=== PATIENT | female | born 1995 | race Caucasian/White ===

== ENCOUNTER → 2017-11-04 | Outpatient (CLI) | payer BC ==
--- NOTE | 2017-11-04 11:58 | XR ---
EXAMINATION TYPE: XR chest 2V DATE OF EXAM: 11/04/2017 COMPARISON: NONE HISTORY: Chest pain TECHNIQUE: Frontal and lateral views of the chest are obtained. FINDINGS: There is no focal air space opacity, pleural effusion, or pneumothorax seen. The cardiac silhouette size is within normal limits. The osseous structures are intact. Bilateral nipple pierci ng is incidentally noted. IMPRESSION: No acute cardiopulmonary process.
== END | disposition home or self-care (01) ==
LOC: RADXRYALE 11:12
PROVIDERS: ATTEND Family Medicine
DX: R07.89 Other chest pain (principal); R07.1 Chest pain on breathing
CPT/HCPCS: 71046

== ENCOUNTER 2017-11-21 05:33 | Day surgery (SDC) | payer BC ==
[2017-11-18 12:07] VITALS: BMI 26.1
[~2017-11-21 05:33] MED LIST: DEXAMETHASONE SOD PHOSPHATE 4 MG/ML 1 ML VIAL IV ONE; FAMOTIDINE 20 MG/2 ML VIAL IV ONE; ONDANSETRON 4 MG/2 ML VIAL IVP ONE
[2017-11-21] MEDS ORDERED: ONDANSETRON ODT 4 MG TAB PO ONE (05:48)
[2017-11-21] MEDS ORDERED: LACTATED RINGERS 1,000 ML IV SCH (05:48)
[2017-11-21] MEDS ORDERED: MIDAZOLAM 2 MG/2 ML VIAL IV PRN (05:48)
[2017-11-21] MEDS ORDERED: MORPHINE SULFATE 4 MG/ML SYRINGE IV PRN (05:48)
[2017-11-21] MEDS ORDERED: DEXAMETHASONE SOD PHOSPHATE 10 MG/ML 1 ML VIAL IV ONE (05:48)
[2017-11-21] MEDS ORDERED: ceFAZolin IN SWFI 2 GM/20 ML SYRINGE IVP ONE (06:00)
[2017-11-21 06:21] VITALS: RESP 16
[2017-11-21] MEDS: OXYMETAZOLINE 0.05% NASL SPRAY 1 SPRAY BOTTLE NASAL ONE ×6 (06:37→07:06)
[2017-11-21] MEDS ORDERED: LIDOCAINE 1% 20 ML VIAL (10MG/ML) FOR IV START INTRADERMA ONE (06:38)
[2017-11-21] MEDS: MELOXICAM 7.5 MG TAB PO ONE ×2 (06:56→07:06)
[2017-11-21] MEDS ORDERED: MIDAZOLAM 2 MG/2 ML VIAL ONE (07:11)
[2017-11-21] MEDS ORDERED: PROPOFOL 10 MG/ML 20 ML VIAL IV ONE (07:11)
[2017-11-21] MEDS ORDERED: LIDOCAINE 1% INJ 10MG/ML (20 ML MDV) ONE (07:11)
[2017-11-21] MEDS ORDERED: SUCCINYLCHOLINE CHLORIDE 100 MG/5 ML SYR IV ONE (07:11)
[2017-11-21] MEDS ORDERED: DEXAMETHASONE SOD PHOS (MDV) 100 MG/10 ML VIAL ONE (07:11)
[2017-11-21] MEDS ORDERED: fentaNYL (PF) 50 MCG/ML 2 ML AMP ONE (07:11)
[2017-11-21] MEDS ORDERED: LIDOCAINE 1%-EPI 1:100,000 30 ML VIAL SUBMUCOSAL ONE ×2 (07:36→07:55)
[2017-11-21] MEDS ORDERED: BUPIVACAINE (PF) 0.25% 30 ML VIAL SQ ONE ×2 (07:36→07:55)
[2017-11-21] MEDS ORDERED: ceFAZolin 1,000 MG, DEXAMETHASONE SOD PHOS (MDV) 20 MG in SODIUM CHLORIDE 0.9% 1,000 ML IRRIGATION ONE (07:43)
--- NOTE | 2017-11-21 08:18 | P.OP ---
Date of Procedure: 11/21/17 Preoperative Diagnosis: Chronic cryptic adenotonsillitis Chronic sinusitis, maxillary Postoperative Diagnosis: same Procedure(s) Performed: Adenotonsillectomy Bilateral maxillary antrostomy with lavage Anesthesia: NORA Surgeon: Ron Cutler Estimated Blood Loss (ml): 5 Pathology: other (tonsils) Condition: stable Disposition: PACU Indications for Procedure: This patient has had constant sore throats for the last 2 years since April of last year she's had constant issues with tonsil stones halitosis etc. She has nasal obstruction constant sinus drainage and has evidence of infectious issues with her maxillary sinuses and has been on multiple antibiotics with no improvement she suffers from discolored yellow green drainage constant sore throats and exudate coming from the tonsils. She was found to have large adenoids that were obstructive. She had clear evidence of chronic nasopharyngitis chronic cryptic tonsillitis and chronic maxillary sinusitis which has been problematic for many years and has failed medical therapy. Again this is been a constant problems since April last year. Adenotonsillectomy and a sinus lavage and antrostomy was recommended and the patient was in agreement. All risks, benefits, and alternative therapies were discussed in great detail. Consent was obtained and all questions were answered. Operative Findings: Patient had severe cryptitis of the tonsils with food debris and exudate noted in the crypts. Adenoids were large obstructive. The sinuses flushed yellow purulence from the maxillary sinuses bilaterally. Description of Procedure: Prior to surgery all risks, benefits, and alternative therapies were discussed in detail. Risks of bleeding, infection, need for secondary surgery, airway problems, anesthetic complications, etc. etc. were discussed in detail. Consent was obtained and all questions were answered. OPERATIVE PROCEDURE: This patient was taken to the operative room and placed in the supine position. A functioning IV line was in placed and the patient was monitored throughout the entire case by the department of anesthesia. The patient underwent general anesthetic with intubation and tube was secured. The nose was topically decongested and anesthetized with Pontocaine and Afrin in a 50/50 mixture utilizing a 3 inch cottonoid. After 5 minutes were allowed to wait for full vasoconstrictive effect to take place, lidocaine 1% with epinephrine 1:100,000 was injected in the floor of the nose and below the inferior turbinate bilaterally for complete anesthesia. The inferior portion underneath the inferior turbinates (b/l) were punctured with an antral punch and a catheter was then inserted into the maxillary sinus. The sinus was irrigated with an antibiotic solution of approximately 500 mL, bilaterally. After the sinuses were lavaged, the spear knife was used to open up a nasoantral window and was widened with a small Alessandra. The mucosa was spared and reflected appropriately to make the nasoantral window. No specimen was removed. Generous nasoantral window was performed. The patient tolerated this well and minimal bleeding was encountered. A McIvor mouth gag was placed into the patients mouth with care to avoid any trauma to the lips, teeth, gums or tongue. Mouth was opened and tongue was depressed. The tonsils were grasped with an Allis forceps and brought medially bilaterally. A subcapsular dissection was performed utilizing an Evac-70 handpiece with an Arthrotec setting of 7. The tonsils were removed without incident bilaterally and the tonsillar fossae were inspected and bleeding was nonexistent and stopped spontaneously with Coblation. A Marcaine and lidocaine mixture was injected into the peritonsillar area for anesthesia postoperatively. After the tonsillar fossae were reinspected and no bleeding was seen attention was then paid to the nasopharynx where a red rubber catheter was placed into the nose and out the mouth and used to retract the soft palate. With use of indirect mirror examination and the Coblation hand wand, the adenoid tissue was removed in that fashion again utilizing an Evac-70 handpiece with Arthrotec setting of 7. The adenoid tissues were removed and fulgurated. The patient tolerated this procedure well. The nasopharynx shows no signs of any bleeding. McIvor mouth gag and the red rubber catheter were removed. The stomach was suctioned and the patient was taken to postanesthesia recovery in excellent condition having tolerated this procedure well. The patient will follow up in the office in one week as scheduled.
[2017-11-21 08:39] VITALS: TEMP 97.3
[2017-11-21] MEDS ORDERED: LACTATED RINGERS 1,000 ML IV ONE (08:50)
[2017-11-21] MEDS ORDERED: HYDROcodone/APAP 5-325MG 1 EACH TAB PO ONE (09:02)
[2017-11-21 09:47] VITALS: BP 130/80; PULSE 74
== END 2017-11-21 10:03 | disposition home or self-care (01) ==
LOC: OR 05:33
PROVIDERS: ATTEND Otolaryngology
DX: J35.01 Chronic tonsillitis (principal); J32.0 Chronic maxillary sinusitis; J45.909 Unspecified asthma, uncomplicated; F32.9 Major depressive disorder, single episode, unspecified; Z79.2 Long term (current) use of antibiotics; Z79.51 Long term (current) use of inhaled steroids; Z79.52 Long term (current) use of systemic steroids; Z79.899 Other long term (current) drug therapy; Z79.3 Long term (current) use of hormonal contraceptives
CPT/HCPCS: 81025; 88304; 42821; 31020; J2250; J1100 ×2; J0690 ×2; J2001; J3010; J0330; J2704

== ENCOUNTER → 2018-09-26 | Outpatient (CLI) | payer BC ==
--- NOTE | 2018-09-26 14:32 | MR ---
EXAMINATION TYPE: MR brain wo/w con DATE OF EXAM: 09/26/2018 COMPARISON: NONE HISTORY: Headache, fatigue, syncope, and concussion TECHNIQUE: Multiplanar, multisequence images of the brain and brainstem is performed without and with IV contras t, utilizing 7.5 mL intravenous Gadavist . FINDINGS: Diffusion weighted images demonstrate no evidence of a recent infarct or other diffusion ab normality. There is no extra-axial fluid collection or significant white matter signal abnormality. The ventricular system and cisternal spaces are normal in size and appearance. The brain volume is age appropriate. Midline structures demonstrate normal morphology. The craniocervical junction appears within normal limits. Post contrast images demonstrate no abnormal enhancement. The dural venous sinuses appear pa tent. Mild mucosal thickening is seen within the left maxillary sinus. The remaining visualized sinus es are clear and the globes are intact. IMPRESSION: 1. There is no abnormal intracranial white matter signal/gliosis or evidence of microhemorrhage in th is patient status post concussion. No suspicious extra-axial fluid collection or midline shift. No ab normal enhancement. 2. Mild left maxillary mucosal thickening. 3. No acute infarct.
== END | disposition home or self-care (01) ==
LOC: RADMRIMAIN 13:32
PROVIDERS: ATTEND Physician Assistant Medical
DX: R51 Headache (principal); R55 Syncope and collapse; R53.83 Other fatigue
CPT/HCPCS: 70553; A9585

== ENCOUNTER → 2020-02-01 | Outpatient (CLI) | payer OTHER | END | disposition home or self-care (01) | LOC: LABWHC1 08:27 | PROVIDERS: ATTEND Family Medicine | DX: Z11.59 Encounter for screening for other viral diseases (principal) | CPT/HCPCS: U0003; C9803 ==

== ENCOUNTER 2020-09-05 21:47 | Observation (INO) | payer BC, OTHER ==
--- NOTE | 2020-09-05 22:54 | ED ---
Abdominal Pain HPI - General Chief Complaint: Abdominal Pain Stated Complaint: ABD pain Time Seen by Provider: 09/05/20 22:20 Source: patient Mode of arrival: ambulatory Limitations: no limitations - History of Present Illness Initial Comments: This patient is 25-year-old woman who presents to be evaluated for low midline abdominal pain. She indicates just below the umbilicus and also suprapubic area. She states it is like a pressure, moderate intensity. She first noticed it while she was at work at about 10 AM and it has gotten a little worse th roughout the day. The patient denies any trauma or heavy lifting. She denies any associated symptoms. Patient denies STI risk factors, no sexual contacts for 6 months. No vaginal discharge. MD Complaint: abdominal pain Onset/Timin -: hour(s) Location: periumbilical, suprapubic Radiation: none Severity: moderate Quality: other (Pressure) Improves With: rest Worsens With: other (Palpation) Associated Symptoms: denies other symptoms - Related Data LMP (females 10-50): this week Patient : No Home Medications Medication Instructions Recorded Confirmed Citalopram Hydrobromide [CeleXA] 20 mg PO QAM 11/18/17 11/21/17 Equate Allergy 10 mg PO DAILY 11/18/17 11/21/17 Medroxyprogesterone Acetate 150 mg IM DIRECTED 11/18/17 11/21/17 [Depo-Provera] Previous Rx's Medication Instructions Recorded Amoxicillin 500 mg PO Q8HR #300 ml 11/21/17 Dexamethasone 6 mg PO DIRECTED #2 tablet 11/21/17 Famotidine [Pepcid] 40 mg PO BID 30 Days tab 11/21/17 Famotidine [Pepcid] 40 mg PO BID 30 Days #30 tab 11/21/17 Hydrocodone/Acetaminophen [[place] 1 - 2 each PO Q4-6H PRN #36 tab 11/21/17 5-325] Lidocaine Viscous [Xylocaine 5 ml PO RT-Q1H PRN #300 ml 11/21/17 Viscous 2%] Meloxicam [Mobic] 15 mg PO DAILY #10 tab 11/21/17 Allergies Allergy/AdvReac Type Severity Reaction Status Date / Time No Known Allergies Allergy Verified 09/05/20 22:05 Review of Systems ROS Statement: Those systems with pertinent positive or pertinent negative responses have been documented in the HPI. ROS Other: All systems not noted in ROS Statement are negative. Constitutional: Denies: fever, chills Respiratory: Denies: cough, dyspnea Cardiovascular: Denies: chest pain, palpitations, edema Gastrointestinal: Reports: as per HPI, abdominal pain. Denies: nausea, vomiting, diarrhea, constipation, melena, hematochezia Genitourinary: Denies: dysuria, frequency, hematuria, discharge, abnormal menses Musculoskeletal: Denies: back pain Skin: Denies: rash Neurological: Denies: headache, weakness, numbness Past Medical History Past Medical History: No Reported History History of Any Multi-Drug Resistant Organisms: None Reported Past Surgical History: Adenoidectomy, Tonsillectomy Past Psychological History: Anxiety, Depression Smoking Status: Vaper Past Alcohol Use History: Occasional Past Drug Use History: None Reported General Exam Limitations: no limitations General appearance: alert, in no apparent distress Head exam: Present: atraumatic, normocephalic Eye exam: Present: normal appearance. Absent: scleral icterus, conjunctival injection Neck exam: Present: normal inspection Respiratory exam: Present: normal lung sounds bilaterally. Absent: respiratory distress, wheezes, rales, rhonchi, stridor Cardiovascular Exam: Present: regular rate, normal rhythm, normal heart sounds. Absent: systolic murmur, diastolic murmur, rubs, gallop GI/Abdominal exam: Present: soft, tenderness, normal bowel sounds. Absent: distended, guarding, rebound, rigid, mass, pulsatile mass, hernia Extremities exam: Present: normal inspection, normal capillary refill. Absent: pedal edema, calf tenderness Back exam: Present: normal inspection. Absent: CVA tenderness (R), CVA tenderness (L) Neurological exam: Present: alert Skin exam: Present: warm, dry, intact, normal color. Absent: rash Course Vital Signs 09/05/20 09/06/20 22:00 00:05 Temperature 98.4 F Pulse Rate 101 H 73 Respiratory 18 16 Rate Blood Pressure 147/93 117/61 O2 Sat by Pulse 99 98 Oximetry Medical Decision Making - Lab Data Result diagrams: 09/05/20 22:58 09/05/20 22:58 Lab Results 09/05/20 09/05/20 09/05/20 Range/Units 22:58 22:58 22:58 WBC 19.4 H (3.8-10.6) k/uL RBC 4.39 (3.80-5.40) m/uL Hgb 13.3 (11.4-16.0) gm/dL Hct 39.6 (34.0-46.0) % MCV 90.2 (80.0-100.0) fL MCH 30.4 (25.0-35.0) pg MCHC 33.7 (31.0-37.0) g/dL RDW 12.4 (11.5-15.5) % Plt Count 352 (150-450) k/uL MPV 7.1 Neutrophils % 76 % Lymphocytes % 16 % Monocytes % 5 % Eosinophils % 2 % Basophils % 0 % Neutrophils # 14.8 H (1.3-7.7) k/uL Lymphocytes # 3.2 (1.0-4.8) k/uL Monocytes # 0.9 (0-1.0) k/uL Eosinophils # 0.3 (0-0.7) k/uL Basophils # 0.1 (0-0.2) k/uL Sodium (137-145) mmol/L Potassium (3.5-5.1) mmol/L Chloride (98-107) mmol/L Carbon Dioxide (22-30) mmol/L Anion Gap mmol/L BUN (7-17) mg/dL Creatinine (0.52-1.04) mg/dL Est GFR (CKD-EPI)AfAm (>60 ml/min/1.73 sqM) Est GFR (CKD-EPI)NonAf (>60 ml/min/1.73 sqM) Glucose (74-99) mg/dL Calcium (8.4-10.2) mg/dL Total Bilirubin (0.2-1.3) mg/dL AST (14-36) U/L ALT (4-34) U/L Alkaline Phosphatase (38-126) U/L C-Reactive Protein (<10.0) mg/L Total Protein (6.3-8.2) g/dL Albumin (3.5-5.0) g/dL Amylase (30-110) U/L Lipase (23-300) U/L Urine Color Light Yellow Urine Appearance Clear (Clear) Urine pH 6.5 (5.0-8.0) Ur Specific [place] 1.009 (1.001-1.035) Urine Protein Negative (Negative) Urine Glucose (UA) Negative (Negative) Urine Ketones Negative (Negative) Urine Blood Negative (Negative) Urine Nitrite Negative (Negative) Urine Bilirubin Negative (Negative) Urine Urobilinogen <2.0 (<2.0) mg/dL Ur Leukocyte Esterase Negative (Negative) Urine HCG, Qual Not Detected (Not Detectd) 09/05/20 Range/Units 22:58 WBC (3.8-10.6) k/uL RBC (3.80-5.40) m/uL Hgb (11.4-16.0) gm/dL Hct (34.0-46.0) % MCV (80.0-100.0) fL MCH (25.0-35.0) pg MCHC (31.0-37.0) g/dL RDW (11.5-15.5) % Plt Count (150-450) k/uL MPV Neutrophils % % Lymphocytes % % Monocytes % % Eosinophils % % Basophils % % Neutrophils # (1.3-7.7) k/uL Lymphocytes # (1.0-4.8) k/uL Monocytes # (0-1.0) k/uL Eosinophils # (0-0.7) k/uL Basophils # (0-0.2) k/uL Sodium 138 (137-145) mmol/L Potassium 4.0 (3.5-5.1) mmol/L Chloride 102 (98-107) mmol/L Carbon Dioxide 27 (22-30) mmol/L Anion Gap 9 mmol/L BUN 14 (7-17) mg/dL Creatinine 0.80 (0.52-1.04) mg/dL Est GFR (CKD-EPI)AfAm >90 (>60 ml/min/1.73 sqM) Est GFR (CKD-EPI)NonAf >90 (>60 ml/min/1.73 sqM) Glucose 109 H (74-99) mg/dL Calcium 9.1 (8.4-10.2) mg/dL Total Bilirubin 0.3 (0.2-1.3) mg/dL AST 20 (14-36) U/L ALT 16 (4-34) U/L Alkaline Phosphatase 42 (38-126) U/L C-Reactive Protein 32.2 H (<10.0) mg/L Total Protein 7.5 (6.3-8.2) g/dL Albumin 4.3 (3.5-5.0) g/dL Amylase 53 (30-110) U/L Lipase 195 (23-300) U/L Urine Color Urine Appearance (Clear) Urine pH (5.0-8.0) Ur Specific [place] (1.001-1.035) Urine Protein (Negative) Urine Glucose (UA) (Negative) Urine Ketones (Negative) Urine Blood (Negative) Urine Nitrite (Negative) Urine Bilirubin (Negative) Urine Urobilinogen (<2.0) mg/dL Ur Leukocyte Esterase (Negative) Urine HCG, Qual (Not Detectd) Disposition Clinical Impression: Abdominal pain, Acute appendicitis Disposition: ADMITTED IP TO THIS [facility] Condition: Good Referrals: Jose Angel Rice DO [Primary Care Provider] - 1-2 days
[2020-09-05 23:13] LABS: Basophils # (A) 0.1 k/uL (0-0.2); Basophils % (A) 0 %; Eosinophils # (A) 0.3 k/uL (0-0.7); Eosinophils % (A) 2 %; HCT 39.6 % (34.0-46.0); HGB 13.3 gm/dL (11.4-16.0); Lymphocytes # (A) 3.2 k/uL (1.0-4.8); Lymphocytes % (A) 16 %; MCH 30.4 pg (25.0-35.0); MCHC 33.7 g/dL (31.0-37.0); MCV 90.2 fL (80.0-100.0); Mean Platelet Volume 7.1; Monocytes # (A) 0.9 k/uL (0-1.0); Monocytes % (A) 5 %; Neutrophils # (A) 14.8 k/uL (1.3-7.7); Neutrophils % (A) 76 %; Platelet Count 352 k/uL (150-450); RBC 4.39 m/uL (3.80-5.40); RDW 12.4 % (11.5-15.5); WBC 19.4 k/uL (3.8-10.6)
[2020-09-05 23:24] LABS: Appearance,Urine Clear (Clear); Bilirubin,Urine Negative (Negative); Blood,Urine Negative (Negative); Color,Urine Light Yellow; Glucose,Urine (UA) Negative (Negative); Ketones,Urine Negative (Negative); Leukocyte Esterase,Urine Negative (Negative); Nitrite,Urine Negative (Negative); PH, Urine 6.5 (5.0-8.0); Protein,Urine Negative (Negative); Specific Gravity,Urine 1.009 (1.001-1.035); Urobilinogen,Urine <2.0 mg/dL (<2.0)
[2020-09-05 23:29] LABS: ALT 16 U/L (4-34); AST 20 U/L (14-36); African American GFR (CKD) >90 (>60 ml/min/1.73 sqM); Albumin 4.3 g/dL (3.5-5.0); Alkaline Phosphatase 42 U/L (38-126); Amylase 53 U/L (30-110); Anion Gap 9 mmol/L; Blood Urea Nitrogen 14 mg/dL (7-17); C Reactive Protein 32.2 mg/L (<10.0); Calcium 9.1 mg/dL (8.4-10.2); Carbon Dioxide 27 mmol/L (22-30); Chloride 102 mmol/L (98-107); Glucose 109 mg/dL (74-99); Lipase 195 U/L (23-300); Non-African American GFR(CKD) >90 (>60 ml/min/1.73 sqM); Sodium 138 mmol/L (137-145); Total Bilirubin 0.3 mg/dL (0.2-1.3); Total Protein 7.5 g/dL (6.3-8.2)
--- NOTE | 2020-09-06 00:50 | CT ---
EXAMINATION TYPE: CT abdomen pelvis w con DATE OF EXAM: 09/06/2020 COMPARISON: None HISTORY: Epigastric pain CT DLP: 1225 mGycm Automated exposure control for dose reduction was used. CONTRAST: Performed with IV Contrast, patient injected with 100 mL of Isovue 300. Lung bases are clear. There is no pleural effusion. Heart size is normal. There is no pericardial eff usion. The liver spleen stomach pancreas gallbladder appear intact. Liver measures 21 cm.. Bile ducts are no t dilated. There is no adrenal mass. Kidneys show satisfactory contrast opacification. There is no hydronephrosi s. Ureters are not dilated. Delayed images show normal renal excretion. Bladder distends smoothly. Th ere is no inguinal hernia. There is no free fluid in the pelvis. There is no sign of a pelvic mass. The appendix is fluid-filled and measures up to 9.5 mm. There is no significant surrounding inflammat ion. Appendix is medial and inferior. There is no ascites or free air. There is no sign of a bowel obstruction. There is no mesenteric breanna a. The lumbar vertebra have normal alignment. There is no compression fracture. Bony pelvis is intact . Hip joints are intact. impression Mildly dilated and distended appendix with fluid that is suggestive of acute appendicitis. No sign of rupture. Borderline hepatomegaly.
[2020-09-06] MEDS ORDERED: MORPHINE SULFATE 4 MG/ML SYRINGE IV STA (01:17)
[2020-09-06] MEDS ORDERED: PIPERACILLIN-TAZOBACTAM 3.375 GM in SODIUM CHLORIDE 0.9% 100 ML IVPB STA (01:17)
[2020-09-06] MEDS ORDERED: ONDANSETRON 4 MG/2 ML VIAL IVP STA (01:17)
[2020-09-06] MEDS ORDERED: NALOXONE 0.4 MG/ML 1 ML VIAL IV PRN (01:18)
[2020-09-06] MEDS: SODIUM CHLORIDE 0.9% 1,000 ML IV SCH ×4 (01:43→20:11)
[2020-09-06] MEDS: HYDROmorphone 0.5 MG/0.5 ML SYRINGE IVP PRN (04:48)
[2020-09-06] MEDS: HYDROmorphone 1 MG/ML 1 ML SYRINGE IVP PRN ×3 (07:50→20:11)
[2020-09-06] MEDS: PANTOPRAZOLE 40 MG/10 ML VIAL IV SCH (07:50)
--- NOTE | 2020-09-06 08:37 | P.GSHP ---
History of Present Illness H&P Date: 09/06/20 CHIEF COMPLAINT: Abdominal pain HISTORY OF PRESENT ILLNESS: This is a 25-year-old female who had sudden onset of mid abdominal pain around 10:00 yesterday morning. She said it started in the umbilicus area and has now radiated down into the right lower quadrant. She has been having some nausea no vomiting. She reports chills. She had elevated white count of 19.4. Computed tomography scan of the abdomen and pelvis mildly dilated and distended appendix with fluid that is suggestive of acute appendicitis. No sign of rupture. Patient is admitted for acute appendicitis. She's been started on IV antibiotics. She denies any fever. Denies any cardiac history. PAST MEDICAL HISTORY: See list. PAST SURGICAL HISTORY: See list. MEDICATIONS: See list. ALLERGIES: See list. SOCIAL HISTORY: No illicit drug use. REVIEW OF SYSTEMS: CONSTITUTIONAL: Denies fever or chills. HEENT: Denies blurred vision, vision changes, or eye pain. Denies hemoptysis CARDIOVASCULAR: Denies chest pain or pressure. RESPIRATORY: No shortness of breath. GASTROINTESTINAL: See HPI for pertinent findings HEMATOLOGIC: Denies bleeding disorders. GENITOURINARY: Denies any blood in urine or increased urinary frequency. SKIN: Denies pruitis. Denies rash. PHYSICAL EXAM: VITAL SIGNS: Reviewed GENERAL: Well-developed in no acute distress. HEENT: No sclera icterus. Extraocular movements grossly intact. Moist buccal mucosa. Head is atraumatic, normocephalic. No nasal drainage. ABDOMEN: Soft. Nondistended. Tenderness with palpation to right lower quadrant. NEUROLOGIC: Alert and oriented. Cranial nerves II through XII grossly intact. LABORATORY DATA: WBC 19.4 Hgb 13.3 potassium 4.0 creatinine 0.80 CRP 32.2 LFTs and lipase normal UA negative IMAGING: Computed tomography scan of the abdomen and pelvis mildly dilated and distended appendix with fluid that is suggestive of acute appendicitis. No sign of rupture. ASSESSMENT: 1. Acute appendicitis PLAN: -Patient scheduled for laparoscopic appendectomy with Dr. Sanchez today -Continue IV antibiotics -Continue IV fluids -Continue pain medication as needed Physician Chainsaw Mechanic note has been reviewed by physician. Signing provider agrees with the documented findings, assessment, and plan of care. Past Medical History Past Medical History: No Reported History History of Any Multi-Drug Resistant Organisms: None Reported Past Surgical History: Adenoidectomy, Tonsillectomy Past Psychological History: Anxiety, Depression Smoking Status: Vaper Past Alcohol Use History: Occasional Past Drug Use History: None Reported Medications and Allergies Home Medications Medication Instructions Recorded Confirmed Type Apri-28 1 tab PO HS 09/06/20 09/06/20 History Citalopram Hydrobromide [CeleXA] 20 mg PO HS 09/06/20 09/06/20 History Ibuprofen [Motrin Ib] 800 mg PO Q8H PRN 09/06/20 09/06/20 History Naproxen Sodium [Aleve] 660 mg PO DAILY PRN 09/06/20 09/06/20 History Allergies Allergy/AdvReac Type Severity Reaction Status Date / Time No Known Allergies Allergy Verified 09/06/20 07:32 Surgical - Exam Vital Signs Temp Pulse Resp BP Pulse Ox 98.4 F 101 H 18 147/93 99 09/05/20 22:00 09/05/20 22:00 09/05/20 22:00 09/05/20 22:00 09/05/20 22:00 Results - Labs 09/05/20 22:58 09/05/20 22:58 Abnormal Lab Results - Last 24 Hours (Table) 09/05/20 09/05/20 Range/Units 22:58 22:58 WBC 19.4 H (3.8-10.6) k/uL Neutrophils # 14.8 H (1.3-7.7) k/uL Glucose 109 H (74-99) mg/dL C-Reactive Protein 32.2 H (<10.0) mg/L Diabetes panel 09/05/20 Range/Units 22:58 Sodium 138 (137-145) mmol/L Potassium 4.0 (3.5-5.1) mmol/L Chloride 102 (98-107) mmol/L Carbon Dioxide 27 (22-30) mmol/L BUN 14 (7-17) mg/dL Creatinine 0.80 (0.52-1.04) mg/dL Glucose 109 H (74-99) mg/dL Calcium 9.1 (8.4-10.2) mg/dL AST 20 (14-36) U/L ALT 16 (4-34) U/L Alkaline Phosphatase 42 (38-126) U/L Total Protein 7.5 (6.3-8.2) g/dL Albumin 4.3 (3.5-5.0) g/dL Calcium panel 09/05/20 Range/Units 22:58 Calcium 9.1 (8.4-10.2) mg/dL Albumin 4.3 (3.5-5.0) g/dL Pituitary panel 09/05/20 Range/Units 22:58 Sodium 138 (137-145) mmol/L Potassium 4.0 (3.5-5.1) mmol/L Chloride 102 (98-107) mmol/L Carbon Dioxide 27 (22-30) mmol/L BUN 14 (7-17) mg/dL Creatinine 0.80 (0.52-1.04) mg/dL Glucose 109 H (74-99) mg/dL Calcium 9.1 (8.4-10.2) mg/dL Adrenal panel 09/05/20 Range/Units 22:58 Sodium 138 (137-145) mmol/L Potassium 4.0 (3.5-5.1) mmol/L Chloride 102 (98-107) mmol/L Carbon Dioxide 27 (22-30) mmol/L BUN 14 (7-17) mg/dL Creatinine 0.80 (0.52-1.04) mg/dL Glucose 109 H (74-99) mg/dL Calcium 9.1 (8.4-10.2) mg/dL Total Bilirubin 0.3 (0.2-1.3) mg/dL AST 20 (14-36) U/L ALT 16 (4-34) U/L Alkaline Phosphatase 42 (38-126) U/L Total Protein 7.5 (6.3-8.2) g/dL Albumin 4.3 (3.5-5.0) g/dL
[2020-09-06] MEDS: ONDANSETRON 4 MG/2 ML VIAL IVP PRN (09:25)
[2020-09-06] MEDS: PIPERACILLIN-TAZOBACTAM 3.375 GM in SODIUM CHLORIDE 0.9% 100 ML IVPB SCH ×2 (09:32→16:49)
[2020-09-06] MEDS ORDERED: IV FLUID CONTINUATION 700 ML IV ONE (12:27)
[2020-09-06] MEDS ORDERED: MIDAZOLAM 2 MG/2 ML VIAL IV ONE ×2 (12:30→12:37)
[2020-09-06] MEDS ORDERED: SCOPOLAMINE 1.5MG/72HR PATCH TRANSDERM ONE (12:38)
[2020-09-06] MEDS ORDERED: DEXAMETHASONE SOD PHOSPHATE 4 MG/ML 1 ML VIAL IV ONE (12:38)
[2020-09-06] MEDS ORDERED: PROPOFOL 10 MG/ML 20 ML VIAL IV ONE (13:12)
[2020-09-06] MEDS ORDERED: fentaNYL (PF) 50 MCG/ML 2 ML AMP ONE (13:12)
[2020-09-06] MEDS ORDERED: HEPARIN SODIUM,PORCINE 5,000 UNIT/ML 1 ML VIAL ONE (13:12)
[2020-09-06] MEDS ORDERED: KETOROLAC 15 MG/ML 1 ML VIAL ONE (13:12)
[2020-09-06] MEDS ORDERED: ROCURONIUM 10 MG/ML (5 ML VIAL) IV ONE (13:12)
[2020-09-06] MEDS ORDERED: LIDOCAINE 1% INJ 10MG/ML (20 ML MDV) ONE (13:12)
[2020-09-06] MEDS ORDERED: NEOSTIGMINE 1 MG/ML 10 ML VIAL ONE (13:12)
[2020-09-06] MEDS ORDERED: SUCCINYLCHOLINE CHLORIDE 100 MG/5 ML SYR IV ONE (13:12)
[2020-09-06] MEDS ORDERED: GLYCOPYRROLATE 0.2 MG/ML 2 ML VIAL ONE (13:12)
[2020-09-06] MEDS ORDERED: BUPIVACAINE (PF) 0.25% 30 ML VIAL SQ ONE (13:32)
[2020-09-06] MEDS ORDERED: SODIUM CHLORIDE 0.9% 50 ML with ceFAZolin 2,000 MG IV ONE ×2 (13:34)
--- NOTE | 2020-09-06 13:44 | P.OP ---
Date of Procedure: 09/06/20 Preoperative Diagnosis: Acute appendicitis Postoperative Diagnosis: Acute appendicitis Procedure(s) Performed: Laparoscopic appendectomy Anesthesia: NORA Surgeon: Addison Sanchez Estimated Blood Loss (ml): 5 Pathology: other (Appendix) Condition: stable Disposition: PACU Description of Procedure: HaThe patient's placed on the operating table in the supine position. The patient received general anesthesia. The abdomen was prepped and draped in the usual sterile fashion. The skin was anesthetized 1% local Xylocaine at the trocar sites. Using an 11 blade the skin was incised at the umbilicus. The umbilicus was grasped with a [place] clamp and then a Veress needle was placed into the peritoneal cavity. Position of the Veress needle was confirmed with positive drop test. After adequate insufflation a 5 mm trocar was placed into the peritoneal cavity. The abdomen was further insufflated. And then the laparoscope was placed in the peritoneal cavity. Next a 5 mm trocar was placed in the midline suprapubic position. And then a 10 mm trocar was placed in the midline epigastric position. The patient was rotated with the right side up and in Trendelenburg. The appendix was visualized. The appendix appeared to be inflamed. The appendix was grasped and then using the Harmonic scissors the mesoappendix was divided. A PDS Endoloop was then placed around the base of the appendix. And then the appendix was divided using Harmonic scissors. The appendix was placed into an Endo Catch and brought out through the 10 mm trocar site. The abdomen was irrigated. There is no bleeding seen. The trochars withdrawn. The skin was closed interrupted 3-0 Monocryl suture. Dermabond dressing was applied. Patient was sent to recovery room in stable condition.
[2020-09-06] MEDS ORDERED: SODIUM CHLORIDE 0.9% 1,000 ML IV ONE (13:50)
[2020-09-06] MEDS ORDERED: HYDROmorphone 0.5 MG/0.5 ML SYRINGE IVP ONE ×3 (14:22→15:00)
[2020-09-07] MEDS: HYDROmorphone 1 MG/ML 1 ML SYRINGE IVP PRN ×2 (00:51→04:45)
[2020-09-07] MEDS: PIPERACILLIN-TAZOBACTAM 3.375 GM in SODIUM CHLORIDE 0.9% 100 ML IVPB SCH ×3 (00:51→15:51)
[2020-09-07] MEDS: SODIUM CHLORIDE 0.9% 1,000 ML IV SCH ×2 (04:23→08:30)
[2020-09-07] MEDS: PANTOPRAZOLE 40 MG/10 ML VIAL IV SCH (08:23)
[2020-09-07] MEDS: ENOXAPARIN 40 MG/0.4 ML SYRINGE SQ SCH (08:23)
[2020-09-07 09:10] LABS: Basophils # (A) 0.1 k/uL (0-0.2); Basophils % (A) 0 %; Eosinophils # (A) 0.1 k/uL (0-0.7); Eosinophils % (A) 1 %; HCT 35.2 % (34.0-46.0); HGB 11.5 gm/dL (11.4-16.0); Lymphocytes # (A) 3.2 k/uL (1.0-4.8); Lymphocytes % (A) 25 %; MCH 30.5 pg (25.0-35.0); MCHC 32.6 g/dL (31.0-37.0); MCV 93.5 fL (80.0-100.0); Mean Platelet Volume 7.4; Monocytes # (A) 0.5 k/uL (0-1.0); Monocytes % (A) 4 %; Neutrophils # (A) 8.9 k/uL (1.3-7.7); Neutrophils % (A) 69 %; Platelet Count 344 k/uL (150-450); RBC 3.76 m/uL (3.80-5.40); WBC 12.9 k/uL (3.8-10.6)
[2020-09-07] MEDS: HYDROmorphone 0.5 MG/0.5 ML SYRINGE IVP PRN ×2 (09:11→15:55)
--- NOTE | 2020-09-07 12:38 | P.PN ---
Subjective Progress Note Date: 09/07/20 CHIEF COMPLAINT: Appendicitis HISTORY OF PRESENT ILLNESS: Patient is status post laparoscopic appendectomy. She is complaining of abdominal pain today. She does not feel well enough for discharge. She was able to eat a few bites of her breakfast. She is currently on a regular diet. Denies any nausea or vomiting. Afebrile. WBC 12.9 PHYSICAL EXAM: VITAL SIGNS: Reviewed. GENERAL: Well-developed in no acute distress. HEENT: No sclera icterus. Extraocular movements grossly intact. Moist buccal mucosa. Head is atraumatic, normocephalic. ABDOMEN: Soft. Nondistended. NEUROLOGIC: Alert and oriented. Cranial nerves II through XII grossly intact. ASSESSMENT: 1. Acute appendicitis status post laparoscopic appendectomy PLAN: -Add Solomon as needed for pain -Encourage patient to ambulate and use incentive spirometer -Continue regular diet -Continue antibiotics -GI prophylaxis Protonix and DVT prophylaxis Lovenox -Anticipate discharge tomorrow Physician Automotive Welder note has been reviewed by physician. Signing provider agrees with the documented findings, assessment, and plan of care. Objective - Vital Signs Vital signs: Vital Signs Temp 97.7 F 09/07/20 07:00 Pulse 74 09/07/20 07:00 Resp 14 09/07/20 07:00 BP 104/59 09/07/20 07:00 Pulse Ox 98 09/07/20 07:00 Intake & Output 09/06/20 09/07/20 09/07/20 18:59 06:59 18:59 Intake Total 750 2810 Output Total 5 Balance 745 2810 Weight 93.304 kg Intake: IV 750 Intake, IV Titration 1800 Amount Sodium Chloride 0.9% 1, 1800 000 ml @ 150 mls/hr IV . Q6H40M [facility] Rx#:[id number] Oral 1010 Output: Estimated Blood Loss 5 Other: Voiding Method Toilet # Voids 1 4 - Labs CBC & Chem 7: 09/07/20 08:45 09/05/20 22:58 Labs: Abnormal Lab Results - Last 24 Hours (Table) 09/07/20 Range/Units 08:45 WBC 12.9 H (3.8-10.6) k/uL RBC 3.76 L (3.80-5.40) m/uL Neutrophils # 8.9 H (1.3-7.7) k/uL
[2020-09-07] MEDS: HYDROcodone/APAP 5-325MG 1 EACH TAB PO PRN ×2 (12:56→20:00)
--- NOTE | 2020-09-07 13:57 | P.CONS ---
History of Present Illness - Reason for Consult Consult date: 09/07/20 medical management, history of depression and anxiety, history of asthma - Chief Complaint appendectomy - History of Present Illness This is a 25-year-old female who was recently admitted under surgical services with Dr. Sanchez for an acute appendicitis and a consult was placed for medical management. Patient is currently under the care of Dr. Rice in the outpatient setting and takes citalopram 20 mg daily for history of pressure and anxiety. Patient also states she has a past medical history of asthma and has an inhaler although has not had to use for years. Patient states she was having some lower right abdominal discomfort that radiated to the left that felt more severe than cramping and had recently just ended her menses the day prior in the abdominal pain became more intense and severe with some nausea. Patient states the pain was not tolerable and her mother brought her to the hospital. Patient had a CT of the abdomen and pelvis with contrast which showed a mildly dilated and distended appendix with fluid that was suggestive of acute appendicitis with no signs of rupture. Patient underwent appendectomy and is postop day #1. Patient continues to have some abdominal tenderness and pain management per primary service. Patient instructed to increase activity as tolerated and continue to encourage fluids and rest. Patient states she does vape and cessation and counseling provided for this. Review of systems: Constitutional: No reports of fatigue, fever, or chills Cardiovascular: No reports of chest pain or palpitations Respiratory: No reports of shortness of breath or cough GI: No reports of nausea, vomiting, or diarrhea, reports passing gas although no bowel movements, reports lower abdominal discomfort with movement and position changes : No reports of dysuria or retention Neurovascular: No reports of weakness or numbness All medications have been reviewed Review of Systems All systems: negative Constitutional: Denies chills, Denies fever Eyes: denies blurred vision, denies pain Ears, nose, mouth and throat: Denies headache, Denies sore throat Cardiovascular: Denies chest pain, Denies shortness of breath Respiratory: Denies cough Gastrointestinal: Reports abdominal pain, Denies diarrhea, Denies nausea, Denies vomiting Genitourinary: Denies dysuria, Denies hematuria Musculoskeletal: Denies myalgias Integumentary: Denies pruritus, Denies rash Neurological: Denies numbness, Denies weakness Psychiatric: Reports anxiety, Reports depression Endocrine: Denies fatigue, Denies weight change Past Medical History Past Medical History: Asthma Additional Past Medical History / Comment(s): Asthma-pt states she has not needed to use her inhaler past couple years, sinusitis. History of Any Multi-Drug Resistant Organisms: None Reported Past Surgical History: Adenoidectomy, Tonsillectomy Additional Past Surgical History / Comment(s): Sinus washing Past Anesthesia/Blood Transfusion Reactions: No Reported Reaction, Motion Sickness Past Psychological History: Anxiety, Depression Smoking Status: Vaper - Past Family History Father Additional Family Medical History / Comment(s): Father is an alcoholic and has drug addiction. Mother Family Medical History: No Reported History Additional Family Medical History / Comment(s): Mother is healthy Medications and Allergies Home Medications Medication Instructions Recorded Confirmed Type Apri-28 1 tab PO HS 09/06/20 09/06/20 History Citalopram Hydrobromide [CeleXA] 20 mg PO HS 09/06/20 09/06/20 History Ibuprofen [Motrin Ib] 800 mg PO Q8H PRN 09/06/20 09/06/20 History Naproxen Sodium [Aleve] 660 mg PO DAILY PRN 09/06/20 09/06/20 History Allergies Allergy/AdvReac Type Severity Reaction Status Date / Time No Known Allergies Allergy Verified 09/06/20 07:32 Physical Exam Vitals: Vital Signs Temp Pulse Resp BP Pulse Ox 09/07/20 07:00 97.7 F 74 14 104/59 98 09/07/20 01:01 98.1 F 70 16 110/63 97 09/06/20 20:00 98.4 F 76 16 129/76 97 09/06/20 18:14 16 09/06/20 16:29 97.8 F 74 16 142/77 99 09/06/20 15:45 66 16 114/62 96 09/06/20 15:20 81 16 109/56 97 09/06/20 15:05 63 16 105/53 09/06/20 14:50 71 16 105/53 96 09/06/20 14:35 68 16 118/64 95 09/06/20 14:20 72 16 118/64 97 09/06/20 14:05 71 16 128/59 95 09/06/20 13:53 97.1 F L 91 16 128/59 96 09/06/20 13:10 73 16 117/60 100 09/06/20 12:39 97.9 F 73 16 128/70 100 Intake and Output 09/06/20 09/07/20 09/07/20 22:59 06:59 14:59 Intake Total 450 2360 Balance 450 2360 Intake: Intake, IV Titration 1800 Amount Sodium Chloride 0.9% 1, 1800 000 ml @ 150 mls/hr IV . Q6H40M [facility] Rx#:[id number] Oral 450 560 Other: Voiding Method Toilet # Voids 1 4 Gen: This is a 25-year-old female awake, alert and oriented 3, well-developed, well-nourished. HEENT: Head is atraumatic, normocephalic. Pupils equal, round. Sclerae is anicteric. NECK: Supple. No JVD. No lymphadenopathy. No thyromegaly. LUNGS: Clear to auscultation. No wheezes or rhonchi. No intercostal retractions. HEART: Regular rate and rhythm. No murmur. ABDOMEN: Soft. Mildly tender upon palpation. Bowel sounds are present. No masses. EXTREMITIES: No pedal edema. No calf tenderness. NEUROLOGICAL: Patient is awake, alert and oriented x3. Cranial nerves 2 through 12 are grossly intact. Results CBC & Chem 7: 09/07/20 08:45 09/05/20 22:58 Labs: Abnormal Lab Results - Last 24 Hours (Table) 09/07/20 Range/Units 08:45 WBC 12.9 H (3.8-10.6) k/uL RBC 3.76 L (3.80-5.40) m/uL Neutrophils # 8.9 H (1.3-7.7) k/uL Assessment and Plan Assessment: Acute appendicitis: Status post appendectomy postop day 1 Mild leukocytosis secondary to above: Improving Anxiety/depression: Will resume home medication History of asthma Continued vape, counseling provided Pain management per primary service DVT prophylaxis: Subcutaneous Lovenox GI prophylaxis: Protonix Plan: Continue current medications. She is tolerating diet and will discontinue IV fluids. Patient instructed to increase activity as tolerated. Patient is cu rrently maintained on IV antibiotics in the form of Zosyn and white blood count trending down and patient is afebrile and per surgery no rupture noted of appendix and will discontinue antibiotics. Pain management per primary service. Will continue to follow along with surgery during hospitalization.
[2020-09-07 15:09] VITALS: RESP 16
[2020-09-07] MEDS ORDERED: CITALOPRAM HYDROBROMIDE 20 MG TAB PO SCH (21:00)
[2020-09-07] MEDS ORDERED: APRI PO SCH (21:00)
[2020-09-08] MEDS: PIPERACILLIN-TAZOBACTAM 3.375 GM in SODIUM CHLORIDE 0.9% 100 ML IVPB SCH ×2 (00:20→08:36)
[2020-09-08] MEDS: HYDROcodone/APAP 5-325MG 1 EACH TAB PO PRN ×2 (05:43→13:55)
[2020-09-08 08:20] VITALS: BP 118/70; PULSE 73; TEMP 98.5
[2020-09-08] MEDS: ENOXAPARIN 40 MG/0.4 ML SYRINGE SQ SCH (08:36)
[2020-09-08] MEDS: PANTOPRAZOLE 40 MG/10 ML VIAL IV SCH (08:36)
[2020-09-08] MEDS: ONDANSETRON 4 MG/2 ML VIAL IVP PRN (08:42)
[2020-09-08 08:47] LABS: Basophils % (A) 0 %; Eosinophils # (A) 0.2 k/uL (0-0.7); Eosinophils % (A) 1 %; HCT 32.6 % (34.0-46.0); HGB 11.2 gm/dL (11.4-16.0); Lymphocytes # (A) 2.6 k/uL (1.0-4.8); Lymphocytes % (A) 21 %; MCH 31.3 pg (25.0-35.0); MCHC 34.3 g/dL (31.0-37.0); MCV 91.4 fL (80.0-100.0); Mean Platelet Volume 7.3; Monocytes # (A) 0.5 k/uL (0-1.0); Monocytes % (A) 4 %; Neutrophils # (A) 9.1 k/uL (1.3-7.7); Neutrophils % (A) 73 %; Platelet Count 281 k/uL (150-450); RBC 3.57 m/uL (3.80-5.40); RDW 12.5 % (11.5-15.5); WBC 12.4 k/uL (3.8-10.6)
--- NOTE | 2020-09-08 13:24 | P.DS ---
Providers Date of admission: 09/06/20 01:18 Expected date of discharge: 09/08/20 Attending physician: Addison Sanchez Consults: 09/06/20 13:45 Consult Physician Routine Consulting Provider: Michelle Ca Consult Reason/Comments: Medical management Do you want consulting provider notified?: Yes [facility] Course: Discharge diagnosis 1. Acute appendicitis status post laparoscopic appendectomy Hospital course This is a 25-year-old female who had sudden onset of mid abdominal pain around 10:00 yesterday morning. She said it started in the umbilicus area and has now radiated down into the right lower quadrant. She has been having some nausea no vomiting. She reports chills. She had elevated white count of 19.4. Computed tomography scan of the abdomen and pelvis mildly dilated and distended appendix with fluid that is suggestive of acute appendicitis. No sign of rupture. Patient is admitted for acute appendicitis. She's been started on IV antibiotics. Patient is status post laparoscopic appendectomy. She tolerated surgery well. Her pain is controlled. She denies any nausea or vomiting. She is tolerating diet. She is ambulating. She is passing gas. She is afebrile. White count is trending down. WBC is 12.4 at discharge. She is discharged with antibiotics. Patient is stable for discharge. Please refer to chart for any further details. Physician Special Skills Officer note has been reviewed by physician. Signing provider agrees with the documented findings, assessment, and plan of care. Patient Condition at Discharge: Stable Plan - Discharge Summary New Discharge Prescriptions: New Amoxicillin/Potassium Clav [Augmentin 875-125 Tablet] 1 tab PO Q12HR 7 Days #14 tab HYDROcodone/APAP 5-325MG [[place] 5-325] 1 tab PO Q6HR PRN 3 Days #12 tab PRN Reason: Pain Continue Ibuprofen [Motrin Ib] 800 mg PO Q8H PRN PRN Reason: Pain Apri-28 1 tab PO HS Citalopram Hydrobromide [CeleXA] 20 mg PO HS Discontinued Naproxen Sodium [Aleve] 660 mg PO DAILY PRN PRN Reason: Pain Discharge Medication List Apri-28 1 tab PO HS 09/06/20 [History] Citalopram Hydrobromide [CeleXA] 20 mg PO HS 09/06/20 [History] Ibuprofen [Motrin Ib] 800 mg PO Q8H PRN 09/06/20 [History] Amoxicillin/Potassium Clav [Augmentin 875-125 Tablet] 1 tab PO Q12HR 7 Days #14 tab 09/08/20 [Rx] HYDROcodone/APAP 5-325MG [[place] 5-325] 1 tab PO Q6HR PRN 3 Days #12 tab 09/08/20 [Rx] Follow up Appointment(s)/Referral(s): Jose Angel Rice DO [Primary Care Provider] - 1-2 days Addison Sanchez MD [STAFF PHYSICIAN] - 1 Week Patient Instructions/Handouts: *Surgery [facility] - (Anesthesia) Discharge Instructions Outpatient Surgery, Laparoscopic Appendectomy (DC) Activity/Diet/Wound Care/Special Instructions: No driving while taking [place] No lifting over 10 pounds You may shower. No soaking or tub baths for 2 weeks Very light activity until you are reevaluated at your follow up appointment with your surgeon Discharge Disposition: HOME SELF-CARE
--- NOTE | 2020-09-08 13:40 | P.PN ---
Subjective Progress Note Date: 09/08/20 - Reason for Consult Consult date: 09/07/20 medical management, history of depression and anxiety, history of asthma - Chief Complaint appendectomy - History of Present Illness This is a 25-year-old female who was recently admitted under surgical services with Dr. Sanchez for an acute appendicitis and a consult was placed for medical management. [facility] and takes citalopram 20 mg daily for history of pressure and anxiety. Patient also states she has a past medical history of asthma and has an inhaler although has not had to use for years. Patient states she was having some lower right abdominal discomfort that radiated to the left that felt more severe than cramping and had recently just ended her menses the day prior in the abdominal pain became more intense and severe with some nausea. Patient states the pain was not tolerable and her mother brought her to the hospital. Patient had a CT of the abdomen and pelvis with contrast which showed a mildly dilated and distended appendix with fluid that was suggestive of acute appendicitis with no signs of rupture. Patient underwent appendectomy and is postop day #1. Patient continues to have some abdominal tenderness and pain management per primary service. Patient instructed to increase activity as tolerated and continue to encourage fluids and rest. Patient states she does vape and cessation and counseling provided for this. 09/08/2020 Patient is seen in follow-up this morning with no acute overnight issues. Patient is tolerating diet with no reports of nausea or vomiting noted. Patient is getting up and urinating with no reports of dysuria or retention. She continues to have some abdominal discomfort although states has improved since yesterday. Patient instructed to increase activity as tolerated although continue to get rest and continue with fluids. Home medications have been resumed. She is anticipating discharge today. Review of systems: Constitutional: No reports of fatigue, fever, or chills Cardiovascular: No reports of chest pain or palpitations Respiratory: No reports of shortness of breath or cough GI: No reports of nausea, vomiting, or diarrhea, reports passing gas although no bowel movements : No reports of dysuria or retention Neurovascular: No reports of weakness or numbness All medications have been reviewed Objective - Vital Signs Vital signs: Vital Signs Temp 98.5 F 09/08/20 07:31 Pulse 73 09/08/20 07:31 Resp 16 09/08/20 07:31 BP 118/70 09/08/20 07:31 Pulse Ox 98 09/08/20 07:31 Intake & Output 09/07/20 09/08/20 09/08/20 18:59 06:59 18:59 Intake Total 540 240 Balance 540 240 Intake: Oral 540 240 Other: Voiding Method Toilet Toilet # Voids 3 3 - Exam Gen: This is a 25-year-old female awake, alert and oriented 3, well-developed, well-nourished. HEENT: Head is atraumatic, normocephalic. Pupils equal, round. Sclerae is anicteric. NECK: Supple. No JVD. No lymphadenopathy. No thyromegaly. LUNGS: Clear to auscultation. No wheezes or rhonchi. No intercostal retractions. HEART: Regular rate and rhythm. No murmur. ABDOMEN: Soft. Mildly tender upon palpation of the lower right quadrant. Bowel sounds are present. No masses. EXTREMITIES: No pedal edema. No calf tenderness. NEUROLOGICAL: Patient is awake, alert and oriented x3. Cranial nerves 2 through 12 are grossly intact. - Labs CBC & Chem 7: 09/08/20 08:35 09/05/20 22:58 Labs: Abnormal Lab Results - Last 24 Hours (Table) 09/08/20 Range/Units 08:35 WBC 12.4 H (3.8-10.6) k/uL RBC 3.57 L (3.80-5.40) m/uL Hgb 11.2 L (11.4-16.0) gm/dL Hct 32.6 L (34.0-46.0) % Neutrophils # 9.1 H (1.3-7.7) k/uL Assessment and Plan Assessment: Acute appendicitis: Status post appendectomy postop day 2 Mild leukocytosis secondary to above: Improving Anxiety/depression: Will resume home medication History of asthma Continued vape, counseling provided Pain management per primary service DVT prophylaxis: Subcutaneous Lovenox GI prophylaxis: Protonix Plan: Continue current medications. She is tolerating diet and no reported nausea or vomiting. Patient instructed to increase activity as tolerated. Pain management per primary service. Will continue to follow along with surgery during hospitalization. Patient states she is being discharged today.
[2020-09-09] MEDS ORDERED: PANTOPRAZOLE 40 MG TABLET PO SCH (07:30)
== END 2020-09-08 14:38 | disposition home or self-care (01) ==
LOC: EC 21:47 → 6NMEDSUR 09-06 01:18
PROVIDERS: ADMIT Surgery; ATTEND Surgery
DX: K35.80 Unspecified acute appendicitis (principal); F32.9 Major depressive disorder, single episode, unspecified; F41.9 Anxiety disorder, unspecified; J45.909 Unspecified asthma, uncomplicated; F17.210 Nicotine dependence, cigarettes, uncomplicated; Z79.3 Long term (current) use of hormonal contraceptives; Z79.1 Long term (current) use of non-steroidal anti-inflammatories (NSAID); Z79.899 Other long term (current) drug therapy; Z98.890 Other specified postprocedural states; Z81.1 Family history of alcohol abuse and dependence; Z81.3 Family history of other psychoactive substance abuse and dependence
CPT/HCPCS: 96376; 96375; 96374; 99285; 36415; 81025 ×2; 88304; 80053; 82150; 83690; 85025 ×3; 86140; 81003; 87635; 74177; 44970; G0378 ×3; J2543 ×3; J2250; J2270; J1644; J1100; J2710; J2405 ×2; J0690; J2001; J1650 ×2; J3010; J1170 ×4; J1885; J0330; J2704; C9113 ×3; Q9967

== ENCOUNTER 2021-11-08 08:12 | Emergency (ER) | payer BC ==
[2021-11-08 08:17] VITALS: BP 119/83; PULSE 82; RESP 18; TEMP 97.1
[2021-11-08] MEDS ORDERED: dexAMETHasone 2 MG TAB PO STA (08:32)
--- NOTE | 2021-11-08 08:36 | ED ---
ENT HPI - General Chief complaint: ENT Stated complaint: Sore Throat Time Seen by Provider: 11/08/21 08:20 Source: patient, family, RN notes reviewed Mode of arrival: ambulatory Limitations: no limitations - History of Present Illness Initial comments: 26-year-old female presents emergency department with chief complaint of of sore throat. Patient states that she was started on treatment for strep pharyngitis yesterday. Patient states that usually she receives a steroid to help with the swelling states that she just feels swollen as her symptoms. denies any resting symptoms when she is sitting upright. denies any fevers chills nausea vomiting diarrhea constipation she has mild nasal congestion. patient offers no complaints. - Related Data Home Medications Medication Instructions Recorded Confirmed Apri-28 1 tab PO HS 09/06/20 09/06/20 Citalopram Hydrobromide [CeleXA] 20 mg PO HS 09/06/20 09/06/20 Ibuprofen [Motrin Ib] 800 mg PO Q8H PRN 09/06/20 09/06/20 Previous Rx's Medication Instructions Recorded Amoxicillin/Potassium Clav 1 tab PO Q12HR 7 Days #14 tab 09/08/20 [Augmentin 875-125 Tablet] HYDROcodone/APAP 5-325MG [[place] 1 tab PO Q6HR PRN 3 Days #12 tab 09/08/20 5-325] Dexamethasone [Decadron] 6 mg PO DAILY #4 tablet 11/08/21 Allergies Allergy/AdvReac Type Severity Reaction Status Date / Time No Known Allergies Allergy Verified 11/08/21 08:17 Review of Systems ROS Statement: Those systems with pertinent positive or pertinent negative responses have been documented in the HPI. ROS Other: All systems not noted in ROS Statement are negative. Past Medical History Past Medical History: Asthma Additional Past Medical History / Comment(s): Asthma-pt states she has not ne eded to use her inhaler past couple years, sinusitis. History of Any Multi-Drug Resistant Organisms: None Reported Past Surgical History: Adenoidectomy, Appendectomy, Tonsillectomy Additional Past Surgical History / Comment(s): Sinus washing Past Anesthesia/Blood Transfusion Reactions: No Reported Reaction, Motion Sickness Past Psychological History: Anxiety, Depression Smoking Status: Vaper Past Alcohol Use History: Occasional Past Drug Use History: None Reported - Past Family History Mother Family Medical History: No Reported History Father Additional Family Medical History / Comment(s): Father is an alcoholic and has drug addiction. General Exam Limitations: no limitations General appearance: alert, in no apparent distress Head exam: Present: atraumatic, normocephalic, normal inspection Eye exam: Present: normal appearance, PERRL, EOMI. Absent: scleral icterus, conjunctival injection, periorbital swelling ENT exam: Present: mucous membranes moist, TM's normal bilaterally, normal external ear exam. Absent: normal oropharynx (Erythema, swelling secretions well) Neck exam: Present: normal inspection. Absent: tenderness, meningismus, lymphadenopathy Respiratory exam: Present: normal lung sounds bilaterally. Absent: respiratory distress, wheezes, rales, rhonchi, stridor Cardiovascular Exam: Present: regular rate, normal rhythm, normal heart sounds. Absent: systolic murmur, diastolic murmur, rubs, gallop, clicks Course Vital Signs 11/08/21 08:13 Temperature 97.1 F L Pulse Rate 82 Respiratory 18 Rate Blood Pressure 119/83 O2 Sat by Pulse 98 Oximetry Medical Decision Making - Medical Decision Making Patient has acute pharyngitis currently on antibiotics will be given steroid return parameters discussed. Patient received plan. Disposition Clinical Impression: Acute pharyngitis Disposition: HOME SELF-CARE Condition: Stable Instructions (If sedation given, give patient instructions): Pharyngitis (ED) Additional Instructions: Please return to the Emergency Department if symptoms worsen or any other concerns. Prescriptions: Dexamethasone [Decadron] 6 mg PO DAILY #4 tablet Is patient prescribed a controlled substance at d/c from ED?: No Referrals: Jose Angel Rice DO [Primary Care Provider] - 1-2 days Time of Disposition: 08:35
== END 2021-11-08 08:48 | disposition home or self-care (01) ==
LOC: EC 08:12
DX: J02.9 Acute pharyngitis, unspecified (principal); F17.290 Nicotine dependence, other tobacco product, uncomplicated; J45.909 Unspecified asthma, uncomplicated
CPT/HCPCS: 99282; J8540

== ENCOUNTER → 2022-04-05 | Outpatient (CLI) | payer BC ==
[2022-04-05 13:12] LABS: Basophils # (A) 0.1 k/uL (0-0.2); Basophils % (A) 0 %; Eosinophils # (A) 0.2 k/uL (0-0.7); Eosinophils % (A) 1 %; HCT 43.5 % (34.0-46.0); Lymphocytes # (A) 2.2 k/uL (1.0-4.8); Lymphocytes % (A) 13 %; MCH 30.4 pg (25.0-35.0); MCHC 32.2 g/dL (31.0-37.0); MCV 94.5 fL (80.0-100.0); Mean Platelet Volume 7.2; Monocytes # (A) 0.9 k/uL (0-1.0); Monocytes % (A) 6 %; Neutrophils % (A) 79 %; Platelet Count 385 k/uL (150-450); RDW 13.3 % (11.5-15.5); WBC 16.6 k/uL (3.8-10.6)
[2022-04-05 14:36] LABS: RBC Morphology Normal
[2022-04-05 20:59] LABS: Immunoglobulin E 20.3 IU/mL (0.00-114.00)
== END | disposition home or self-care (01) ==
LOC: LABWHC1 12:20
PROVIDERS: ATTEND Otolaryngology
DX: J02.9 Acute pharyngitis, unspecified (principal)
CPT/HCPCS: 36415; 82784; 82785; 85025; 86162

== ENCOUNTER 2022-07-12 14:40 | Observation (INO) | payer BC ==
[2022-07-12] MEDS ORDERED: MORPHINE SULFATE 4 MG/ML SYRINGE IV STA (15:47)
[2022-07-12] MEDS ORDERED: KETOROLAC 15 MG/ML 1 ML VIAL IVP STA (15:47)
[2022-07-12] MEDS ORDERED: SODIUM CHLORIDE 0.9% 1,000 ML IV STA (15:50)
--- NOTE | 2022-07-12 15:50 | ED ---
General Adult HPI - General Chief complaint: Back Pain/Injury Stated complaint: Sciatic nerve pain Time Seen by Provider: 07/12/22 15:10 Source: patient, family Mode of arrival: wheelchair Limitations: no limitations - History of Present Illness Initial comments: Dictation was produced using [employer] dictation software. please excuse any grammatical, word or spelling errors. Chief Complaint: 27-year-old female presents to the emergency room for back pain History of Present Illness: 27-year-old female past medical history of 8 months of back pain. She was working out 3 days ago doing terrible swings when all of a sudden shortly after she began having some back pain. Patient has had similar back pain intermittently since the last 8 months. He sees a chiropractor patient went to the chiropractor recently and had some work done. Shortly after chiropractor appointment she is feeling better. She will woke up today with worsening pain. She states that her paresthesias to her bilateral posterior lower legs feel like it's worse now involves the left posterior leg. She does have paresthesias to the right posterior leg down to the mid calf now also left was relayed to the mid thigh area. Patient states her back hurts whenever she tries to ambulate. He does walk with bending at the hips. Denies any fevers. No history of IV drug abuse or diabetes or immunosuppression. Denies any dysfunction with bowel or bladder control. The ROS documented in this emergency department record has been reviewed and confirmed by me. Those systems with pertinent positive or negative responses have been documented in the HPI. All other systems are other negative and/or noncontributory. PHYSICAL EXAM: General Impression: Alert and oriented x3, acute distress secondary to pain HEENT: Normocephalic atraumatic, extra-ocular movements intact, pupils equal and reactive to light bilaterally, mucous membranes moist. Cardiovascular: Heart regular rate and rhythm Chest: Able to complete full sentences, no retractions, no tachypnea Abdomen: abdomen soft, non-tender, non-distended, no organomegaly Musculoskeletal: Pulses present and equal in all extremities, no peripheral edema Motor: no focal deficits noted Neurological: CN II-XII grossly intact, no focal motor or sensory deficits noted Skin: Intact with no visualized rashes Psych: Normal affect and mood Back: Palpatory tenderness to the bilateral piriformis. Pain is reproduced with straight leg test bilaterally ED course: 27-year-old female presents emergency Department with acute on chronic back pain. Her injury is atraumatic she does not have any high risks. Vital signs are stable. Patient has no constitutional symptoms. She has no risk factors for epidural infection. Nursing notes and chart review was performed Basic labs ordered. CBC and metabolic panel is unremarkable. CT of the lumbar spine shows multi level lumbar posterior concentric disc herniation from L3 to S1. Disc herniations or increased compared to old CT. Also spinal stenosis at the L4 to L5 and L5 to S1 level. Pelvis CT shows no abnormalities. Patient given multiple doses of IV analgesics. Patient reevaluated bedside for slightly better but still does not feel very well. Patient be admitted observation for intractable back pain. Case discussed with Dr. Barahona who spoke with the behalf of Dr. Baires's who was in the operating room. He does request that patient be admitted to medicine with spine surgery on consult. - Related Data Home Medications Medication Instructions Recorded Confirmed Apri-28 1 tab PO HS 09/06/20 09/06/20 Citalopram Hydrobromide [CeleXA] 20 mg PO HS 09/06/20 09/06/20 Ibuprofen [Motrin Ib] 800 mg PO Q8H PRN 09/06/20 09/06/20 Previous Rx's Medication Instructions Recorded Amoxicillin/Potassium Clav 1 tab PO Q12HR 7 Days #14 tab 09/08/20 [Augmentin 875-125 Tablet] HYDROcodone/APAP 5-325MG [[place] 1 tab PO Q6HR PRN 3 Days #12 tab 09/08/20 5-325] dexAMETHasone [Decadron] 6 mg PO DAILY #4 tablet 11/08/21 Allergies Allergy/AdvReac Type Severity Reaction Status Date / Time No Known Allergies Allergy Verified 11/08/21 08:17 Review of Systems ROS Statement: Those systems with pertinent positive or pertinent negative responses have been documented in the HPI. ROS Other: All systems not noted in ROS Statement are negative. Past Medical History Past Medical History: Asthma Additional Past Medical History / Comment(s): Asthma-pt states she has not needed to use her inhaler past couple years, sinusitis. History of Any Multi-Drug Resistant Organisms: None Reported Past Surgical History: Adenoidectomy, Appendectomy, Tonsillectomy Additional Past Surgical History / Comment(s): Sinus washing Past Anesthesia/Blood Transfusion Reactions: No Reported Reaction, Motion Sick ness Past Psychological History: Anxiety, Depression Smoking Status: Vaper Past Alcohol Use History: Occasional Past Drug Use History: None Reported - Past Family History Mother Family Medical History: No Reported History Father Additional Family Medical History / Comment(s): Father is an alcoholic and has drug addiction. General Exam Limitations: no limitations Course Vital Signs 07/12/22 07/12/22 14:58 19:31 Temperature 98 F Pulse Rate 82 84 Respiratory 16 16 Rate Blood Pressure 145/83 120/65 O2 Sat by Pulse 99 99 Oximetry Medical Decision Making - Lab Data Result diagrams: 07/12/22 16:00 07/12/22 16:00 Lab Results 07/12/22 07/12/22 Range/Units 16:00 16:00 WBC 12.9 H (3.8-10.6) k/uL RBC 4.56 (3.80-5.40) m/uL Hgb 14.1 (11.4-16.0) gm/dL Hct 41.4 (34.0-46.0) % MCV 90.8 (80.0-100.0) fL MCH 31.0 (25.0-35.0) pg MCHC 34.2 (31.0-37.0) g/dL RDW 13.1 (11.5-15.5) % Plt Count 373 (150-450) k/uL MPV 7.7 Neutrophils % 70 % Lymphocytes % 23 % Monocytes % 5 % Eosinophils % 1 % Basophils % 1 % Neutrophils # 9.1 H (1.3-7.7) k/uL Lymphocytes # 3.0 (1.0-4.8) k/uL Monocytes # 0.6 (0-1.0) k/uL Eosinophils # 0.1 (0-0.7) k/uL Basophils # 0.1 (0-0.2) k/uL Sodium 139 (137-145) mmol/L Potassium 4.3 (3.5-5.1) mmol/L Chloride 105 (98-107) mmol/L Carbon Dioxide 26 (22-30) mmol/L Anion Gap 8 mmol/L BUN 8 (7-17) mg/dL Creatinine 0.76 (0.52-1.04) mg/dL Est GFR (CKD-EPI)AfAm >90 (>60 ml/min/1.73 sqM) Est GFR (CKD-EPI)NonAf >90 (>60 ml/min/1.73 sqM) Glucose 90 (74-99) mg/dL Calcium 9.2 (8.4-10.2) mg/dL HCG, Quant <2.4 mIU/mL Disposition Clinical Impression: Intractable back pain Disposition: ADMITTED IP TO THIS HOSP Condition: Fair Referrals: Jose Angel Rice DO [Primary Care Provider] - 1-2 days Decision Time: 20:24
[2022-07-12 16:28] LABS: Basophils # (A) 0.1 k/uL (0-0.2); Basophils % (A) 1 %; Eosinophils # (A) 0.1 k/uL (0-0.7); Eosinophils % (A) 1 %; HCT 41.4 % (34.0-46.0); HGB 14.1 gm/dL (11.4-16.0); Lymphocytes % (A) 23 %; MCHC 34.2 g/dL (31.0-37.0); MCV 90.8 fL (80.0-100.0); Mean Platelet Volume 7.7; Monocytes # (A) 0.6 k/uL (0-1.0); Monocytes % (A) 5 %; Neutrophils # (A) 9.1 k/uL (1.3-7.7); Neutrophils % (A) 70 %; Platelet Count 373 k/uL (150-450); RBC 4.56 m/uL (3.80-5.40); RDW 13.1 % (11.5-15.5); WBC 12.9 k/uL (3.8-10.6)
[2022-07-12 17:14] LABS: African American GFR (CKD) >90 (>60 ml/min/1.73 sqM); Anion Gap 8 mmol/L; Blood Urea Nitrogen 8 mg/dL (7-17); Calcium 9.2 mg/dL (8.4-10.2); Carbon Dioxide 26 mmol/L (22-30); Chloride 105 mmol/L (98-107); Glucose 90 mg/dL (74-99); Non-African American GFR(CKD) >90 (>60 ml/min/1.73 sqM); Potassium 4.3 mmol/L (3.5-5.1); Sodium 139 mmol/L (137-145)
[2022-07-12 17:26] LABS: HCG,Quantitative Serum <2.4 mIU/mL
[2022-07-12] MEDS ORDERED: MORPHINE SULFATE 4 MG/ML SYRINGE IVP STA (18:18)
--- NOTE | 2022-07-12 18:39 | CT ---
EXAMINATION TYPE: CT lumbar spine wo con DATE OF EXAM: 07/12/2022 COMPARISON: CT abdomen 09/06/2020 HISTORY: low back and bilateral hip pain. CT DLP: 908.1 mGycm Automated exposure control for dose reduction was used. Images obtained from the level of T12-S3 vertebra with no contrast. The lumbar vertebrae have normal spacing and alignment. Posterior elements are intact. There is no pa raspinal mass. No compression fracture. There is broad-based large posterior disc herniation at L3-4 and some impingement on the spinal canal. There is similar smaller posterior disc bulge and herniatio n at L4-5. There is a mild spinal stenosis at L4-5 due to the disc herniation and ligament thickening . There is posterior central disc herniation at L5-S1 with moderate spinal stenosis. The posterior elements are intact and sacroiliac joints are intact. IMPRESSION: Multilevel lumbar posterior concentric disc herniation from L3 to S1. Disc herniations are increased compared to old CT scan. There is spinal stenosis at L4-5 and L5-S1.
--- NOTE | 2022-07-12 18:59 | CT ---
EXAMINATION TYPE: CT pelvis wo con DATE OF EXAM: 07/12/2022 COMPARISON: 09/06/2020 HISTORY: low back and bilateral hip pain. CT DLP: 487.6 mGycm Automated exposure control for dose reduction was used. Images obtained from the iliac crest to the subtrochanteric femurs with no contrast. The pelvic ring is intact. Sacroiliac joints are intact. Hip joints are intact. No hip dysplasia. The bladder distends smoothly. The uterus is retroverted. No pelvic mass. No evidence of free fluid i n the pelvis. Appendix not clearly seen. No sign thickened appendix. IMPRESSION: There is no acute abnormality of the pelvis. Normal hip joints. No evidence of sacroiliitis. No adver se change compared to old exam.
[2022-07-12] MEDS ORDERED: ONDANSETRON 4 MG/2 ML VIAL IVP PRN (20:21)
[2022-07-12] MEDS ORDERED: NALOXONE 0.4 MG/ML 1 ML VIAL IV PRN (20:21)
[2022-07-12] MEDS: SODIUM CHLORIDE 0.9% 1,000 ML IV SCH (21:04)
[2022-07-12] MEDS: oxyCODONE-APAP 5-325MG 1 EACH TAB PO PRN (23:27)
[2022-07-12] MEDS ORDERED: ZOLPIDEM 5 MG TAB PO PRN (23:41)
[2022-07-12] MEDS ORDERED: MORPHINE SULFATE 2 MG/ML SYRINGE IVP PRN (23:43)
--- NOTE | 2022-07-12 23:58 | P.HPIM ---
History of Present Illness H&P Date: 07/12/22 Chief Complaint: intractable back pain with radiculopathy 27year old female with no significant past medical history patient coming in due to worsening lower back pain , with radiculopathy to bilateral lower extremities , denies any falling, changes in urinary or bowel co ntrol , denies saddle parasthesia . however she reports that she was doing well until she started new exercise routine with kettle swings, that aggravated her back injury / pain that she has been suffering from since August of this year after sustaining a fall. she has been to her PCP and chiropractor where she finds the most benefit after his adjustments. but recently she only got relief for one day, and then she was suffering of severe pain that she decided to come in here. pain is worse with ambulation and improves with flexion of both hips and knees. otherwise denies any fever, chills, IV drug abuse, history of cancer, or any back surgery . she denies any URI symptoms , chest pain or trouble breathing CT imaging of the back showed multi level disc budging and stenosis over the l umbar spine ortho spine contacted and will see her in AM blood work unremarkable except for elevated WBC pain is radiating to bilateral thighs with parasthesia over the thighs , which got worse today. pain improves with pain meds and positioning Review of Systems Pertinent positives as noted in HPI. All other systems were reviewed and are negative Past Medical History Past Medical History: Asthma Additional Past Medical History / Comment(s): Asthma-pt states she has not needed to use her inhaler past couple years, sinusitis. History of Any Multi-Drug Resistant Organisms: None Reported Past Surgical History: Adenoidectomy, Appendectomy, Tonsillectomy Additional Past Surgical History / Comment(s): Sinus washing Past Anesthesia/Blood Transfusion Reactions: No Reported Reaction, Motion Sic kness Past Psychological History: Anxiety, Depression Additional Psychological History / Comment(s): Pt resides with her mother and brother. She is independent. Smoking Status: Vaper Past Alcohol Use History: Occasional Additional Past Alcohol Use History / Comment(s): Pt vapes every day. Past Drug Use History: None Reported - Past Family History Mother Family Medical History: No Reported History Father Additional Family Medical History / Comment(s): Father is an alcoholic and has drug addiction. Medications and Allergies Home Medications Medication Instructions Recorded Confirmed Type Acid Reflux Medicaton (Unknown) 1 dose PO DAILY 07/12/22 07/12/22 History Fluticasone Nasal [place] [Flonase 1 spray EA NOSTRIL DAILY PRN 07/12/22 07/12/22 History Nasal [place]] Allergies Allergy/AdvReac Type Severity Reaction Status Date / Time No Known Allergies Allergy Verified 07/12/22 20:32 Physical Exam Vitals: Vital Signs Temp Pulse Pulse Resp BP BP Pulse Ox 07/12/22 22:57 98.2 F 75 17 138/83 100 07/12/22 19:31 84 16 120/65 99 07/12/22 14:58 98 F 82 16 145/83 99 Intake and Output 07/12/22 07/12/22 07/13/22 14:59 22:59 06:59 Other: Weight 86.183 kg 86.183 kg Constitutional: No acute distress, conversant, pleasant Eyes: Anicteric sclerae, moist conjunctiva, Pupils equal round reactive to light ENMT: NC/AT Oropharynx clear, no erythema, or exudates Neck: Supple, FROM, no masses, or JVD No carotid bruits No thyromegaly Lungs: Clear to auscultation Clear to percussion Normal respiratory effort, no accessory muscle use Cardiovascular: Heart regular in rate and rhythm, No murmurs, gallops, or rubs No peripheral edema Abdominal: Soft Nontender, no guarding, rebound or rigidity Abdomen moving with respiration Normoactive bowel sounds No hepatomegaly, No splenomegaly No palpable mass No abdominal wall hernia noted Skin: Normal temperature, tone, texture, turgor No induration No subcutaneous nodules No rash, lesions No ulcers Extremities: No digital cyanosis No clubbing Pedal pulses intact and symmetrical Radial pulses intact and symmetrical No calf tenderness Psychiatric: Alert and oriented to person, place and time Appropriate affect fair judgement Neuro straight leg rising limited by back pain and stretching sensation over the thighs , reflexes brisk bilaterally , no foot clonus , plantar reflexes equivocal bilaterally Muscles Strength 5/5 in all 4 extremities Sensation to light touch grossly present throughout Cranial nerves II-XII grossly intact No focal sensory deficits Lymphatics: no palpable cervical or supraclavicular , or inguinal lymph nodes Results CBC & Chem 7: 07/12/22 16:00 07/12/22 16:00 Labs: Abnormal Lab Results - Last 24 Hours (Table) 07/12/22 Range/Units 16:00 WBC 12.9 H (3.8-10.6) k/uL Neutrophils # 9.1 H (1.3-7.7) k/uL Assessment and Plan Assessment: intractable back pain CT showed multi level lumbar spine disc bulging and lumbar stenosis pain control with NSAIds and opiates monitor vital signs PPI for GI ppx ortho spine consult blood work checked, elevated WBC no identifiable focus of infection fall precautions PT eval full code DVT PPX scds
[2022-07-13] MEDS: methocarbamoL 750 MG TAB PO PRN ×2 (01:02→17:00)
[2022-07-13] MEDS: KETOROLAC 15 MG/ML 1 ML VIAL IVP PRN ×2 (01:02→12:47)
[2022-07-13] MEDS: PANTOPRAZOLE 40 MG TABLET PO SCH (07:00)
[2022-07-13] MEDS: PREGABALIN 75 MG CAP PO SCH ×2 (07:55→21:08)
[2022-07-13 08:09] VITALS: RESP 18
[2022-07-13] MEDS: oxyCODONE-APAP 5-325MG 1 EACH TAB PO PRN ×2 (10:32→19:51)
--- NOTE | 2022-07-13 12:51 | P.CNOR ---
History of Present Illness - [facility] Consult date: 07/13/22 Requesting physician: Dileep Chauhan Consult reason: other (intractable back pain) History of present illness: Patient is a 27-year-old female who presents to the emergency department [facility] due to increasing low back pain. Patient says this past August she slipped and fell when she was outside and she said she caught herself, however she began to have increasing low back pain as well as some radiation of pain down her right lower extremity. Patient says the pain did radiate down her buttocks all the way to her calf. Patient also mentions she has some pain down to her left buttocks. Patient says since the injury she had followed with a chiropractor weekly/monthly for adjustments and tried [id number] Tylenol and ibuprofen to help manage pain. Patient says earlier this week on Saturday she was doing lower body workout when she was performing kettle landa swings she felt a sharp and increasing pain down her right lower extremity and she says she was unable to finish her workout. Patient says she went to a chiropractor to get a massage/adjustment on Saturday and she woke up Saturday morning with worsening pain. Patient says she is also seen her primary care provider in the past for this issue she has been treated with oral steroids. There has been some relief however the pain seems to come back. Patient denies any previous orthopedic surgical history. Patient denies chest pain, fever, shortness breath, nausea, vomiting, change in vision, loss of bowel/bladder control. Past Medical History Past Medical History: Asthma Additional Past Medical History / Comment(s): Asthma-pt states she has not needed to use her inhaler past couple years, sinusitis. History of Any Multi-Drug Resistant Organisms: None Reported Past Surgical History: Adenoidectomy, Appendectomy, Tonsillectomy Additional Past Surgical History / Comment(s): Sinus washing Past Anesthesia/Blood Transfusion Reactions: No Reported Reaction, Motion Sickness Past Psychological History: Anxiety, Depression Additional Psychological History / Comment(s): Pt resides with her mother and brother. She is independent. Smoking Status: Vaper Past Alcohol Use History: Occasional Additional Past Alcohol Use History / Comment(s): Pt vapes every day. Past Drug Use History: None Reported - Past Family History Mother Family Medical History: No Reported History Father Additional Family Medical History / Comment(s): Father is an alcoholic and has drug addiction. Medications and Allergies Home Medications Medication Instructions Recorded Confirmed Type Fluticasone Nasal [place] [Flonase 1 spray EA NOSTRIL DAILY PRN 07/12/22 07/12/22 History Nasal [place]] Omeprazole [PriLOSEC] 40 mg PO DAILY 07/13/22 07/13/22 History Allergies Allergy/AdvReac Type Severity Reaction Status Date / Time No Known Allergies Allergy Verified 07/12/22 20:32 Physical Examination Inspection: Negative for any open fractures, significant erythema/ecchymosis/ulcers. Sensation: Sensation is equal, symmetric, and intact throughout the upper and lower extremities. Palpation: There is some mild to moderate tenderness to palpation at midline over the lower lumbar spine. Moderate tenderness of patient's bilateral SI joints. Nontender to palpation throughout rest exam Range of motion: Patient has full range of motion bilateral upper extremities on exam. Patient has full range of motion in bilateral lower extremities in ankle dorsi/plantar flexion. Patient does have some limited range of motion bilaterally in hip flexion/extension due to pain. Range of motion of bilateral knees in flexion and extension Motor: 5/5 in all major motor groups in bilateral upper extremities. 4+/5 in resisted hip flexion/extension and knee flexion/extension bilaterally. Neurovascular status: Radial pulses intact, 2+ bilaterally. cap refill <3 sec in digits of BUE Special tests: Negative clonus bilaterally. Negative Homans bilaterally. Results - Labs Labs: Abnormal Lab Results - Last 24 Hours (Table) 07/12/22 Range/Units 16:00 WBC 12.9 H (3.8-10.6) k/uL Neutrophils # 9.1 H (1.3-7.7) k/uL H & H 07/12/22 Range/Units 16:00 Hgb 14.1 (11.4-16.0) gm/dL Hct 41.4 (34.0-46.0) % Result Diagrams: 07/12/22 16:00 07/12/22 16:00 - Diagnostic results CT Scan - lumbar: report reviewed, image reviewed (disc herniations from L3 to S1. There is spinal stenosis at L4-L5 and L5-S1.) Assessment and Plan Assessment: 1. Low back pain; right lower extremity radiculopathy Plan: 1. Low back pain; right lower extremity radiculopathy - CT of lumbar spine has been reviewed and does show disc herniations from L3 to S1. There is spinal stenosis at L4-L5 and L5-S1. At this time we are not recommending any emergent/urgent orthopedic surgical intervention. We are recommending patient to follow-up in the outpatient setting by Dr. Johnson. Lyrica ordered for pain. Patient stable from an orthopedic standpoint for discharge home. Orthopedics is satting at this time. Please don do not hesitate to contact us for any further questions. 2. Appreciate medical management 3. Pain management - oxycodone; Lyrica; robaxin 4. DVT prophylaxis - mechanical 5. GI prophylaxis - protonix 6. PT/OT - weightbearing as tolerated 7. Appreciate consult Time with Patient: Less than 30
--- NOTE | 2022-07-13 19:07 | P.PN ---
Subjective Progress Note Date: 07/13/22 Patient is a 27-year-old female with asthma, sinusitis, and nicotine dependency who presented to the emergency department with complaints of back pain. In the emergency department she underwent an extensive evaluation. Her vital signs were within normal limits. Labaratory analysis was remarkable for WBC of 12.9. CT lumbar spince showed disc herniation from L3 to S1 with spinal stenosis at L4-5 and L5-S1. Pelvis CT was negative. She was unable to achieve adaquate pain control in the ED and ortho spine was contacted. Arrangements were made for observation. Patient was seen by orthopedics by surgery who recommended outpatient follow-up with MRI and pain management. Patient seen and examined at bedside. She continues to have back pain with radiation down her right thigh. She denies any nausea or vomiting. She states the pain control works but then wears off easily. General: nontoxic, no distress, appears at stated age Derm: warm, dry Head: atraumatic, normocephalic, symmetric Eyes: EOMI, no lid lag, anicteric sclera Mouth: no lip lesion, mucus membranes moist Cardiovascular: S1S2 reg, no murmur, positive posterior tibial pulse bilateral, Lungs: CTA bilateral, no rhonchi, no rales , no accessory muscle use Abdominal: soft, nontender to palpation, no guarding, no appreciable organomegaly Ext: no gross muscle atrophy, no edema, no contractures Neuro: CN II-XI grossly intact, no focal neuro deficits Psych: Alert, oriented, appropriate affect Assessment/plan: Intractable back pain due to lumbar disc herniation L3 to S1 with radiation -Orthopedic spine surgery recommendations appreciated -Continue with Toradol and reboxetine -Percocet as needed for breakthrough pain -Agree with Lyrica Asthma without exacerbation -As needed bronchodilators Sinusitis Nicotine dependence- vaping home in AM Objective - Vital Signs Vital signs: Vital Signs Temp 97.4 F L 07/13/22 07:00 Pulse 62 07/13/22 07:00 Resp 18 07/13/22 07:00 BP 112/73 07/13/22 07:00 Pulse Ox 96 07/13/22 07:00 FiO2 Intake & Output 07/12/22 07/13/22 07/13/22 18:59 06:59 18:59 Intake Total 500 Balance 500 Weight 86.183 kg 86.183 kg Intake: Oral 500 Other: Voiding Method Toilet - Labs CBC & Chem 7: 07/12/22 16:00 07/12/22 16:00 Labs: Abnormal Lab Results - Last 24 Hours (Table) 07/12/22 Range/Units 16:00 WBC 12.9 H (3.8-10.6) k/uL Neutrophils # 9.1 H (1.3-7.7) k/uL
[2022-07-13] MEDS: SODIUM CHLORIDE 0.9% 1,000 ML IV SCH (21:06)
[2022-07-14] MEDS: KETOROLAC 15 MG/ML 1 ML VIAL IVP PRN ×2 (04:40→11:43)
[2022-07-14] MEDS: oxyCODONE-APAP 5-325MG 1 EACH TAB PO PRN (04:40)
[2022-07-14] MEDS: PANTOPRAZOLE 40 MG TABLET PO SCH (04:41)
[2022-07-14 07:51] VITALS: BP 105/63; PULSE 73; TEMP 98.7
[2022-07-14] MEDS: PREGABALIN 75 MG CAP PO SCH (08:28)
--- NOTE | 2022-07-14 18:48 | P.DS ---
Providers Date of admission: 07/12/22 20:21 Expected date of discharge: 07/14/22 Attending physician: Wali Camargo MD Consults: 07/12/22 20:21 Consult Physician Routine Consulting Provider: Serge Johnson Consult Reason/Comments: intractable back pain Do you want consulting provider notified?: Yes [facility] Course: Discharge Diagnosis: Intractable back pain with radicular symptoms on the right leg secondary to lumbar disc herniation L3 to S1 Asthma without exacerbation Sinusitis Nicotine dependence Hospital Course: Patient is a 27-year-old female with asthma, sinusitis, and nicotine dependency who presented to the emergency department with complaints of back pain. In the emergency department she underwent an extensive evaluation. Her vital signs were within normal limits. Labaratory analysis was remarkable for WBC of 12.9. CT lumbar spine showed disc herniation from L3 to S1 with spinal stenosis at L4-5 and L5-S1. Pelvis CT was negative. She was unable to achieve adequate pain control in the ED and ortho spine was contacted. Arrangements were made for obse rvation. Patient was seen by orthopedics by surgery who recommended outpatient follow-up with MRI and pain management. Arrangements were made for an MRI on 07/17/22. Patient's pain was well-controlled without requiring IV medications. She was subsequently discharged home. Follow-up: Dr. Johnson next week, MRI lumbar spine on 07/17/22, Motrin and Robaxin for pain, Percocet for break through pain. Patient seen and examined at bedside. Pain is better today. She is up and moving. She feels comfortable going home. Vital signs reviewed and stable. General: nontoxic, no distress, appears at stated age Derm: warm, dry Head: atraumatic, normocephalic, symmetric Eyes: EOMI, no lid lag, anicteric sclera Mouth: no lip lesion, mucus membranes moist Cardiovascular: S1S2 reg, no murmur, positive posterior tibial pulse bilateral, Lungs: CTA bilateral, no rhonchi, no rales , no accessory muscle use Ext: no gross muscle atrophy, no edema, no contractures Neuro: CN II-XI grossly intact, no focal neuro deficits Psych: Alert, oriented, appropriate affect A total of 25 minutes of time were spent preparing this complex discharge summary. Patient was discharged on 12/31/22. Patient Condition at Discharge: Fair Plan - Discharge Summary New Discharge Prescriptions: New oxyCODONE-APAP 5-325MG [Percocet 5-325 mg] 1 each PO Q4HR PRN #20 tab PRN Reason: Severe Pain (Scale 7 To 10) Pregabalin [Lyrica] 150 mg PO BID 14 Days #30 cap Ibuprofen [Motrin] 800 mg PO Q8H #30 tab methocarbamoL [Robaxin-750] 750 mg PO QID PRN #30 tab PRN Reason: Muscle Spasm Continue Fluticasone Nasal [place] [Flonase Nasal [place]] 1 spray EA NOSTRIL DAILY PRN PRN Reason: Allergy Symptoms Omeprazole [PriLOSEC] 40 mg PO DAILY Discharge Medication List Fluticasone Nasal [place] [Flonase Nasal [place]] 1 spray EA NOSTRIL DAILY PRN 07/12/22 [History] Omeprazole [PriLOSEC] 40 mg PO DAILY 07/13/22 [History] Ibuprofen [Motrin] 800 mg PO Q8H #30 tab 07/14/22 [Rx] Pregabalin [Lyrica] 150 mg PO BID 14 Days #30 cap 07/14/22 [Rx] methocarbamoL [Robaxin-750] 750 mg PO QID PRN #30 tab 07/14/22 [Rx] oxyCODONE-APAP 5-325MG [Percocet 5-325 mg] 1 each PO Q4HR PRN #20 tab 07/14/22 [Rx] Follow up Appointment(s)/Referral(s): Serge Johnson DO [Doctor of Osteopathic Medicine] - 2 Weeks Jose Angel Rice DO [Primary Care Provider] - 1-2 days Patient Instructions/Handouts: Low Back Strain (DC), Lower Back Exercises (ED) Discharge Disposition: HOME SELF-CARE
== END 2022-07-14 13:55 | disposition home or self-care (01) ==
LOC: EC 14:40 → 6NMEDSUR 20:21
PROVIDERS: ADMIT Internal Medicine; ATTEND Internal Medicine
DX: G89.29 Other chronic pain (principal); M51.17 Intervertebral disc disorders with radiculopathy, lumbosacral region; M48.07 Spinal stenosis, lumbosacral region; R20.2 Paresthesia of skin; M48.061 Spinal stenosis, lumbar region without neurogenic claudication; M51.16 Intervertebral disc disorders with radiculopathy, lumbar region; J32.9 Chronic sinusitis, unspecified; J45.909 Unspecified asthma, uncomplicated; F17.290 Nicotine dependence, other tobacco product, uncomplicated; F41.9 Anxiety disorder, unspecified; F32.A Depression, unspecified; Z98.890 Other specified postprocedural states; Z90.49 Acquired absence of other specified parts of digestive tract; Z63.72 Alcoholism and drug addiction in family; Z79.899 Other long term (current) drug therapy
CPT/HCPCS: 96376 ×3; 96375 ×2; 96361; 96374; 99284; 36415; 80048; 85025; 84702; 72192; 72131; G0378 ×3; J2270; J2405; J1885 ×3

== ENCOUNTER → 2022-10-01 | Outpatient (CLI) | payer BC ==
[2022-10-01 08:06] VITALS: BP 130/80; PULSE 77; RESP 18; TEMP 98.1
--- NOTE | 2022-10-01 14:38 | P.PAINPG ---
PQRS Measure Charge Sheet Comment: A 27 yr old female with a history of severe and chronic LBP secondary to lumbar DDD and spondylosis with facet arthropathy without myelopathy presents today for evaluation s/p R paramedian KEMAL L5-S1 #1. Pt states she experienced 90 % pain relief x 3 wks s/p procedure. Pain level is provoked at 0 /10 in inte nsity. Pain is alleviated with injections. Interventional pain procedures completed include KEMAL L5-S1 x1 Patient is currently on DENIES Patient denies any side effects of the medication(s), denies excessive drowsiness or sleepiness, denies suicidal ideation and reports that the current pain medication is helping to control the pain and improve activities of daily living. Patient denies any motor or sensory deficits. Patient denies any fever or night sweats, denies any change in the bowel movements or urination. Physical Examination: -Constitutional: Cooperative. Not in acute distress . - Neurologic: Cranial nerve II to XII intact. No focal neurological deficits. - Psychatric: Alert & oriented x 3. Matching mood & appropriate affect. Judgment and insight intact. - Musculoskeletal: Cervical spine: Muscle bulk/ tone/ strength in the bilateral upper extremities normal Vertebral body tenderness to palpation over Spurling test positive Distraction test positive Facet loading test positive TTP Thoracic spine Muscle bulk / tone/ strength in the bilateral paraspinal muscles normal Vertebral body tender to palpation over Facet loading test positive TTP Lumbar spine: Motor bulk/ tone/ strength lower extremities , thigh and legs : 5/5 Deep tendon reflexes : Normal Knee Jerk. Normal Ankle Jerk . Vertebral body tenderness to palpation over Lumbar Facet Loading Test positive Straight Leg Raise: positive at 30 degrees right side/ left side Gaenslen's Test positive Sacral spine : Severe tenderness over the Sacroiliac joint: right side / left side Range of motion: Flexion of the lumbar spine <60 degrees Range of motion: Extension of the lumbar spine <20 degrees Gaenslen's Test positive right side / left side Marisol test: positive right side / left side Thigh Thrust Test positive right side / left side Sacral Thrust Test positive right side / left side Assessment and plan: Chronic LBP secondary to lumbar DDD, spondylosis with facet arthropathy without myelopathy Pt exhibited sufficient and substantial pain relief s/p procedure. She may manage residual pain at home and may return to this clinic on an as needed basis. All questions answered. I have spent less than 30 minutes on patient care today. Dr Gonzalez was available by phone for the evaluation of this patient. The time was used to review the medical records including relevant urine studies and Prescription history (MAPs), review of the available imaging, evaluation and examination of the patient, coordination of care with the medical staff and if applicable referring physicians, as well as creation of the medical record PQRS Narrative: Hx Alcohol Use (MH) Yes Home Medications: Ambulatory Orders Fluticasone Nasal [place] [Flonase Nasal [place]] 1 spray EA NOSTRIL DAILY PRN 07/12/22 Ibuprofen [Motrin] 800 mg PO Q8H #30 tab 07/14/22 methocarbamoL [Robaxin-750] 750 mg PO QID PRN #30 tab 07/14/22 Omeprazole 20 mg PO DAILY 09/07/22 Controlled Substance Measures - Controlled Substance Measures Is patient prescribed a controlled substance at discharge?: No
== END ==
LOC: PNWHC3 07:31
PROVIDERS: ATTEND Specialist
DX: M51.36 Other intervertebral disc degeneration, lumbar region (principal); M47.816 Spondylosis without myelopathy or radiculopathy, lumbar region; G89.29 Other chronic pain
CPT/HCPCS: 99211

== ENCOUNTER 2022-11-21 22:20 | Emergency (ER) | payer BC ==
[2022-11-21] MEDS ORDERED: ORPHENADRINE 30 MG/ML 2 ML VIAL IVP STA (23:45)
[2022-11-21] MEDS ORDERED: KETOROLAC 15 MG/ML 1 ML VIAL IVP STA (23:45)
[2022-11-21] MEDS ORDERED: HYDROmorphone 1 MG/ML 1 ML SYRINGE IVP STA (23:45)
[2022-11-21] MEDS ORDERED: methylPREDNISolone SOD SUCCI 125 MG/2 ML VIAL IV STA (23:45)
[2022-11-22] MEDS ORDERED: HYDROmorphone 1 MG/ML 1 ML SYRINGE IVP STA (00:55)
--- NOTE | 2022-11-22 01:05 | ED ---
Back Pain HPI - General Chief Complaint: Back Pain/Injury Stated Complaint: Back Pain Time Seen by Provider: 11/21/22 23:38 Source: patient, RN notes reviewed Mode of arrival: ambulatory Limitations: no limitations - History of Present Illness Initial Comments: 27-year-old female presents emergency Department chief complaint of severe low back pain. Patient states she's been dealing with increasing back pain since June. She was admitted to the hospital in June and was followed by Dr. Johnson for her back. She is noted to have 3 herniated disc. Patient states that she did have a fall prior to this and states that the worsening injury was from a cut elbow work no. Patient states that she did see anesthesia services in September and had injections in which she states helped for a few weeks pain is worsened. She has appointment tomorrow with states this is just a consultation. Patient denies any bowel, bladder incontinence or retention. She does have pain and radiates on her right leg. She states she does have pain meds at home which are not helping her current pain. - Related Data Home Medications Medication Instructions Recorded Confirmed Fluticasone Nasal [place] [Flonase 1 spray EA NOSTRIL DAILY PRN 07/12/22 09/13/22 Nasal [place]] Omeprazole 20 mg PO DAILY 09/07/22 09/13/22 Previous Rx's Medication Instructions Recorded Ibuprofen [Motrin] 800 mg PO Q8H #30 tab 07/14/22 methocarbamoL [Robaxin-750] 750 mg PO QID PRN #30 tab 07/14/22 predniSONE 50 mg PO DAILY #5 tab 11/22/22 Allergies Allergy/AdvReac Type Severity Reaction Status Date / Time No Known Allergies Allergy Verified 11/19/22 22:21 Review of Systems ROS Statement: Those systems with pertinent positive or pertinent negative responses have been documented in the HPI. ROS Other: All systems not noted in ROS Statement are negative. Past Medical History Past Medical History: Asthma Additional Past Medical History / Comment(s): Asthma-pt states she has not needed to use her inhaler past couple years, sinusitis. Back pain History of Any Multi-Drug Resistant Organisms: None Reported Past Surgical History: Adenoidectomy, Appendectomy, Tonsillectomy Additional Past Surgical History / Comment(s): Sinus washing, Past Anesthesia/Blood Transfusion Reactions: No Reported Reaction, Motion Sickness Past Psychological History: Anxiety, Depression Smoking Status: Vaper Past Alcohol Use History: Occasional Past Drug Use History: None Reported - Past Family History Mother Family Medical History: No Reported History Father Additional Family Medical History / Comment(s): Father is an alcoholic and has drug addiction. General Exam Limitations: no limitations General appearance: alert, in no apparent distress Head exam: Present: atraumatic, normocephalic, normal inspection Eye exam: Present: normal appearance, PERRL, EOMI. Absent: scleral icterus, conjunctival injection, periorbital swelling Neck exam: Present: normal inspection, full ROM. Absent: tenderness, meningismus, lymphadenopathy Respiratory exam: Present: normal lung sounds bilaterally. Absent: respiratory distress, wheezes, rales, rhonchi, stridor Cardiovascular Exam: Present: regular rate, normal rhythm, normal heart sounds. Absent: systolic murmur, diastolic murmur, rubs, gallop, clicks GI/Abdominal exam: Present: soft, normal bowel sounds. Absent: distended, tenderness, guarding, rebound, rigid Extremities exam: Present: other (Lower extremity pulses equal bilaterally) Back exam: Present: tenderness, paraspinal tenderness, vertebral tenderness. Absent: full ROM Neurological exam: Present: alert, reflexes normal. Absent: motor sensory deficit Course Vital Signs 11/21/22 11/22/22 11/22/22 22:27 01:00 06:52 Temperature 98.2 F 98.4 F Pulse Rate 80 72 78 Respiratory 18 18 16 Rate Blood Pressure 135/82 112/90 122/78 O2 Sat by Pulse 98 99 99 Oximetry Medical Decision Making - Medical Decision Making Was pt. sent in by a medical professional or institution (Dr. PA, CNC SERVICE TECHNICIAN, urgent care, hospital, or long-term...) When possible be specific @ -No Did you speak to anyone other than the patient for history (EMS, parent, family, police, friend...)? What history was obtained from this source @ -No Did you review nursing and triage notes (agree or disagree)? Why? @ -I reviewed and agree with nursing and triage notes Were old charts reviewed (outside hosp., previous admission, EMS record, old EKG, old radiological studies, urgent care reports/EKG's, long-term records)? Report findings @ -Reviewed prior orthopedic spine evaluation and MRI Differential Diagnosis (chest pain, altered mental status, abdominal pain women, abdominal pain men, vaginal bleeding, weakness, fever, dyspnea, syncope, headache, dizziness, GI bleed, back pain, seizure, CVA, palpatations, mental health, musculoskeletal)? @ -Differential Back Pain: Strain, zoster, cauda equina syndrome, epidural abscess, vertebral osteomyelitis, discitis, fracture, subluxation, disc herniation, DJD, spinal stenosis, dissection, AAA, pancreatitis, peptic ulcer disease, pyelonephritis, kidney stone, this is not meant to be an all-inclusive list.le EKG interpreted by me (3pts min.). @ -None X-rays interpreted by me (1pt min.). @ -None done CT interpreted by me (1pt min.). @ -None done U/S interpreted by me (1pt. min.). @ -None done What testing was considered but not performed or refused? (CT, X-rays, U/S, labs)? Why? @ -None What meds were considered but not given or refused? Why? @ -None Did you discuss the management of the patient with other professionals (professionals i.e. , PA, CNC SERVICE TECHNICIAN, lab, RT, psych nurse, social director, postmaster, teacher, affirmative action officer, case therapist)? Give summary @ -No Was smoking cessation discussed for >3mins.? @ -No Was critical care preformed (if so, how long)? @ -No Were there social determinants of health that impacted care today? How? (Homelessness, low income, unemployed, alcoholism, drug addiction, transportation, low edu. Level, literacy, decrease access to med. care, care home, rehab)? @ -No Was there de-escalation of care discussed even if they declined (Discuss DNR or withdrawal of care, Hospice)? DNR status @ -No What co-morbidities impacted this encounter? (DM, HTN, Smoking, COPD, CAD, Cancer, CVA, ARF, Chemo, Hep., AIDS, mental health diagnosis, sleep apnea, morbid obesity)? @ -None Was patient admitted / discharged? Hospital course, mention meds given and route, prescriptions, significant lab abnormalities, going to OR and other pertinent info. @ -Discharge patient has appointment morning with pain management. Patient was provided pain relief in the emergency department. Patient was discharged in stable condition return parameters discussed. Undiagnosed new problem with uncertain prognosis? @ -No Drug Therapy requiring intensive monitoring for toxicity (Heparin, Nitro, Insulin, Cardizem)? @ -No Were any procedures done? @ -No Diagnosis/symptom? @ -Lumbar herniated disc Acute, or Chronic, or Acute on Chronic? @ -Chronic Uncomplicated (without systemic symptoms) or Complicated (systemic symptoms)? @ -Uncomplicated Side effects of treatment? @ -No Exacerbation, Progression, or Severe Exacerbation? @ -No Poses a threat to life or bodily function? How? (Chest pain, [place], [place], pneumonia, PE, COPD, DKA, ARF, appy, cholecystitis, CVA, Diverticulitis, Homicidal, Suicidal, threat to staff... and all critical care pts) @ -No Disposition Clinical Impression: Lumbar back pain Disposition: HOME SELF-CARE Condition: Stable Instructions (If sedation given, give patient instructions): Acute Low Back Pain (ED) Additional Instructions: Please return to the Emergency Department if symptoms worsen or any other con cerns. Prescriptions: predniSONE 50 mg PO DAILY #5 tab Is patient prescribed a controlled substance at d/c from ED?: No Referrals: Jose Angel Rice DO [Primary Care Provider] - 1-2 days Time of Disposition: 03:08
[2022-11-22 06:53] VITALS: BP 122/78; PULSE 78; RESP 16; TEMP 98.4
== END 2022-11-22 06:52 | disposition home or self-care (01) ==
LOC: EC 22:20
DX: M54.50 Low back pain, unspecified (principal); J45.909 Unspecified asthma, uncomplicated; F17.290 Nicotine dependence, other tobacco product, uncomplicated; Z79.51 Long term (current) use of inhaled steroids; Z90.49 Acquired absence of other specified parts of digestive tract
CPT/HCPCS: 99284; 96374; 96375 ×4; 96376 ×2; J2360; J2930; J3360; J1170; J1885

== ENCOUNTER → 2022-11-22 | Outpatient (CLI) | payer BC ==
[2022-11-22 09:21] VITALS: BP 120/60; PULSE 73; RESP 16; TEMP 98.5
--- NOTE | 2022-11-22 14:12 | P.PAINPG ---
PQRS Measure Charge Sheet Comment: A 27 yr old female with a history of severe and chronic LBP secondary to lumbar DDD and spondylosis with facet arthropathy without myelopathy presents today for LBP evaluation. Pain level is provoked at 6 /10 in intensity, constant, localized in the R lumbar spine, dullin character w shooting towards the RLE. Pain is provoked by bending, lifting. Pain is alleviated with medications, injections, ice, heat, chiropractic treatments monthly 5 months in 22, massage therapy monthly 8 months until June 2020, repositioning and rest. Interventional pain procedures completed include KEMAL L5-S1 x1 Patient is currently on Percocet, Ibu Patient denies any side effects of the medication(s), denies excessive drowsiness or sleepiness, denies suicidal ideation and reports that the current pain medication is helping to control the pain and improve activities of daily living. Patient denies any motor or sensory deficits. Patient denies any fever or night sweats, denies any change in the bowel movements or urination. Physical Examination: -Constitutional: Cooperative. Not in acute distress . - Neurologic: Cranial nerve II to XII intact. No focal neurological deficits. - Psychatric: Alert & oriented x 3. Matching mood & appropriate affect. Judgment and insight intact. - Musculoskeletal: Cervical spine: Muscle bulk/ tone/ strength in the bilateral upper extremities normal Vertebral body tenderness to palpation over Spurling test positive Distraction test positive Facet loading test positive TTP Thoracic spine Muscle bulk / tone/ strength in the bilateral paraspinal muscles normal Vertebral body tender to palpation over Facet loading test positive TTP Lumbar spine: Motor bulk/ tone/ strength lower extremities , thigh and legs : 5/5 Deep tendon reflexes : Normal Knee Jerk. Normal Ankle Jerk . Vertebral body tenderness to palpation over L5 Lumbar Facet Loading Test positive Straight Leg Raise: positive at 30 degrees right side/ left side Gaenslen's Test positive Sacral spine : Severe tenderness over the Sacroiliac joint: right side / left side Range of motion: Flexion of the lumbar spine <60 degrees Range of motion: Extension of the lumbar spine <20 degrees Gaenslen's Test positive right side / left side Marisol test: positive right side / left side Thigh Thrust Test positive right side / left side Sacral Thrust Test positive right side / left side Assessment and plan: Chronic LBP secondary to lumbar DDD, spondylosis with facet arthropathy without myelopathy Recommendation of R paramedian L5-S1 #2. May need a series of injections for optimal pain relief. Risks, benefits of procedure discussed and pt verbalized understanding. Admits to anticoagulant use or medical history of diabetes. Protocol for discontinuation/ continuation of medications joseluis procedure discussed. All questions answered. I have spent less than 30 minutes on patient care today. Dr Gonzalez was available by phone for the evaluation of this patient. The time was used to review the medical records including relevant urine studies and Prescription history (MAPs), review of the available imaging, evaluation and examination of the patient, coordination of care with the medical staff and if applicable referring physicians, as well as creation of the medical record PQRS Narrative: Hx Alcohol Use (MH) Yes Home Medications: Ambulatory Orders Fluticasone Nasal [place] [Flonase Nasal [place]] 1 spray EA NOSTRIL DAILY PRN 07/12/22 Ibuprofen [Motrin] 800 mg PO Q8H #30 tab 07/14/22 methocarbamoL [Robaxin-750] 750 mg PO QID PRN #30 tab 07/14/22 Omeprazole 20 mg PO DAILY 09/07/22 predniSONE 50 mg PO DAILY #5 tab 11/22/22 Controlled Substance Measures - Controlled Substance Measures Is patient prescribed a controlled substance at discharge?: No
== END | disposition home or self-care (01) ==
LOC: PNWHC3 08:42
PROVIDERS: ATTEND Specialist
DX: M51.36 Other intervertebral disc degeneration, lumbar region (principal); M47.816 Spondylosis without myelopathy or radiculopathy, lumbar region; E11.9 Type 2 diabetes mellitus without complications; Z79.01 Long term (current) use of anticoagulants
CPT/HCPCS: 99211

== ENCOUNTER 2022-11-25 16:37 | Emergency (ER) | payer BC ==
[2022-11-25 16:45] VITALS: BP 126/84; PULSE 84; TEMP 97.8
[2022-11-25] MEDS ORDERED: HYDROmorphone 1 MG/ML 1 ML SYRINGE IM STA (17:17)
[2022-11-25] MEDS ORDERED: KETOROLAC 15 MG/ML 1 ML VIAL IM STA (17:17)
--- NOTE | 2022-11-25 17:20 | ED ---
General Adult HPI - General Chief complaint: Back Pain/Injury Stated complaint: Herniated discs L5-S1 Time Seen by Provider: 11/25/22 16:56 Source: patient, family, RN notes reviewed Mode of arrival: wheelchair Limitations: no limitations - History of Present Illness Initial comments: Patient is a pleasant 27-year-old female presenting to the emergency department with concerns for lower back pain. Patient does have injury a year and a half ago followed by repeat injury using a kettle ball. Patient states she did have injections done a couple months ago which seemed to help however has slowly progressed since that time. No new incontinence or retention of bowel or bladder. No weakness. Discomfort is positional. Discomfort is lower lumbar wi th radiation down the right leg. No weakness or loss of sensation. Patient did have MRI a couple months ago - Related Data Home Medications Medication Instructions Recorded Confirmed Fluticasone Nasal [place] [Flonase 1 spray EA NOSTRIL DAILY PRN 07/12/22 09/13/22 Nasal [place]] Omeprazole 20 mg PO DAILY 09/07/22 09/13/22 Previous Rx's Medication Instructions Recorded Ibuprofen [Motrin] 800 mg PO Q8H #30 tab 07/14/22 methocarbamoL [Robaxin-750] 750 mg PO QID PRN #30 tab 07/14/22 predniSONE 50 mg PO DAILY #5 tab 11/22/22 Allergies Allergy/AdvReac Type Severity Reaction Status Date / Time No Known Allergies Allergy Verified 11/19/22 22:21 Review of Systems ROS Statement: Those systems with pertinent positive or pertinent negative responses have been documented in the HPI. ROS Other: All systems not noted in ROS Statement are negative. Constitutional: Denies: fever Eyes: Denies: eye pain ENT: Denies: ear pain Respiratory: Denies: cough Cardiovascular: Denies: chest pain Gastrointestinal: Denies: abdominal pain, vomiting Genitourinary: Denies: dysuria Musculoskeletal: Reports: as per HPI, back pain Skin: Denies: rash Neurological: Denies: weakness, numbness Past Medical History Past Medical History: Asthma Additional Past Medical History / Comment(s): Asthma-pt states she has not ne eded to use her inhaler past couple years, sinusitis. Back pain. kidney stones History of Any Multi-Drug Resistant Organisms: None Reported Past Surgical History: Adenoidectomy, Appendectomy, Tonsillectomy Additional Past Surgical History / Comment(s): Sinus washing, Past Anesthesia/Blood Transfusion Reactions: No Reported Reaction, Motion Sickness Past Psychological History: Anxiety, Depression Smoking Status: Vaper Past Alcohol Use History: Occasional Past Drug Use History: None Reported - Past Family History Mother Family Medical History: No Reported History Father Additional Family Medical History / Comment(s): Father is an alcoholic and has drug addiction. General Exam Limitations: no limitations General appearance: alert Head exam: Present: normocephalic Eye exam: Present: normal appearance Neck exam: Present: normal inspection Respiratory exam: Present: normal lung sounds bilaterally Cardiovascular Exam: Present: regular rate, normal rhythm Expanded Peripheral pulses: 2+: Dorsalis Pedis (R), Dorsalis Pedis (L) GI/Abdominal exam: Present: soft. Absent: tenderness, pulsatile mass Extremities exam: Present: normal inspection. Absent: pedal edema, calf tenderness Back exam: Present: normal inspection Neurological exam: Present: alert. Absent: motor sensory deficit Expanded Sensory exam: Lower Extremity Light Touch: Normal Motor strength exam: RLE: 5, LLE: 5 Psychiatric exam: Present: normal affect, normal mood Skin exam: Present: normal color Course Vital Signs 11/25/22 16:43 Temperature 97.8 F Pulse Rate 84 Respiratory 16 Rate Blood Pressure 126/84 O2 Sat by Pulse 98 Oximetry Medical Decision Making - Medical Decision Making Was pt. sent in by a medical professional or institution (Dr. PA, SOLICITOR PATENT, urgent care, hospital, or [facility]...) When possible be specific @ -No Did you speak to anyone other than the patient for history (EMS, parent, family, police, friend...)? What history was obtained from this source @ -Mother is present and helps provide history including follow-up Did you review nursing and triage notes (agree or disagree)? Why? @ -I reviewed and agree with nursing and triage notes Were old charts reviewed (outside hosp., previous admission, EMS record, old EKG, old radiological studies, urgent care reports/EKG's, [facility] records)? Report findings @ -No old charts were reviewed Differential Diagnosis (chest pain, altered mental status, abdominal pain women, abdominal pain men, vaginal bleeding, weakness, fever, dyspnea, syncope, headache, dizziness, GI bleed, back pain, seizure, CVA, palpatations, mental health)? @ -Differential Back Pain: Strain, zoster, cauda equina syndrome, epidural abscess, vertebral osteomyelitis, discitis, fracture, subluxation, disc herniation, DJD, spinal stenosis, dissection, AAA, pancreatitis, peptic ulcer disease, pyelonephritis, kidney stone, this is not meant to be an all-inclusive list. EKG interpreted by me (3pts min.). @ -As above X-rays interpreted by me (1pt min.). @ -None done CT interpreted by me (1pt min.). @ -None done U/S interpreted by me (1pt. min.). @ -None done What testing was considered but not performed or refused? (CT, X-rays, U/S, labs)? Why? @ -None What meds were considered but not given or refused? Why? @ -None Did you discuss the management of the patient with other professionals (professionals i.e. , PA, SOLICITOR PATENT, lab, RT, psych nurse, social science research assistant, photonics engineering technician, teacher, chief credit officer, case management associate)? Give summary @ -Case was discussed with practitioner Nilda Del Rio who works with Dr. Good medicine and patient has an appointment with on Saturday. She does recommend them call the office in the morning for earlier appointment. Was smoking cessation discussed for >3mins.? @ -No Was critical care preformed (if so, how long)? @ -No Were there social determinants of health that impacted care today? How? (Homelessness, low income, unemployed, alcoholism, drug addiction, transportation, low edu. Level, literacy, decrease access to med. care, longterm, rehab)? @ -No Was there de-escalation of care discussed even if they declined (Discuss DNR or withdrawal of care, Hospice)? DNR status @ -No What co-morbidities impacted this encounter? (DM, HTN, Smoking, COPD, CAD, Cancer, CVA, ARF, Chemo, Hep., AIDS, mental health diagnosis, sleep apnea, morbid obesity)? @ -None Was patient admitted / discharged? Hospital course, mention meds given and route, prescriptions, significant lab abnormalities, going to OR and other pertinent info. @ -Patient reevaluated after Dilaudid and Toradol and states discomfort is tolerable at this time. Patient and family are made aware of plan to call tomorrow for earlier follow-up appointment. Patient is given OxyContin to take home with her as this has worked well previously for her. Undiagnosed new problem with uncertain prognosis? @ -No Drug Therapy requiring intensive monitoring for toxicity (Heparin, Nitro, Insulin, Cardizem)? @ -No Were any procedures done? @ -No Diagnosis/symptom? @ -Low back pain Acute, or Chronic, or Acute on Chronic? @ -Acute Uncomplicated (without systemic symptoms) or Complicated (systemic symptoms)? @ -default Side effects of treatment? @ -No Exacerbation, Progression, or Severe Exacerbation? @ -No Poses a threat to life or bodily function? How? (Chest pain, [place], [place], pneumonia, PE, COPD, DKA, ARF, appy, cholecystitis, CVA, Diverticulitis, Homicidal, Suicidal, threat to staff... and all critical care pts) @ -No Disposition Clinical Impression: Low back pain Disposition: HOME SELF-CARE Condition: Stable Instructions (If sedation given, give patient instructions): Acute Low Back Dan[place] n (ED) Additional Instructions: Please do follow-up with primary care physician in the next couple days for recheck. Consider neurology follow-up for injections. Please do follow-up with practitioner Eliane, call first thing in the morning. Return for fever, weakness, loss of control of bowel or bladder, increased pain, worsening symptoms or other concerns. Is patient prescribed a controlled substance at d/c from ED?: No Referrals: Jose Angel Rice DO [Primary Care Provider] - 1-2 days Yojana Del Rio NPC [Nurse Practitioner] - 1-2 days Cynthia Coe MD [Medical Doctor] - 1-2 days Time of Disposition: 19:34
[2022-11-25] MEDS ORDERED: oxyCODONE-APAP 5-325MG 1 EACH TAB PO STA (19:25)
[2022-11-25] MEDS ORDERED: ORPHENADRINE 30 MG/ML 2 ML VIAL IM STA (19:31)
[2022-11-25 20:36] VITALS: RESP 20
== END 2022-11-25 20:36 | disposition home or self-care (01) ==
LOC: EC 16:37
DX: M54.50 Low back pain, unspecified (principal); J45.909 Unspecified asthma, uncomplicated; F41.9 Anxiety disorder, unspecified; F32.A Depression, unspecified; F17.290 Nicotine dependence, other tobacco product, uncomplicated; Z79.899 Other long term (current) drug therapy
CPT/HCPCS: 99283; 96372 ×3; J2360; J1170; J1885

== ENCOUNTER 2022-11-27 00:57 | Emergency (ER) | payer BC ==
[2022-11-27 01:01] VITALS: RESP 18
[2022-11-27] MEDS ORDERED: KETOROLAC 15 MG/ML 1 ML VIAL IM STA ×2 (01:16→02:32)
[2022-11-27] MEDS ORDERED: diazePAM 5 MG TAB PO STA ×2 (01:16→02:32)
[2022-11-27] MEDS ORDERED: HYDROmorphone 1 MG/ML 1 ML SYRINGE IM STA ×2 (01:16→02:32)
--- NOTE | 2022-11-27 01:58 | ED ---
Back Pain HPI - General Chief Complaint: Back Pain/Injury Stated Complaint: back pain,leg pain Time Seen by Provider: 11/27/22 01:05 Source: patient, RN notes reviewed Limitations: no limitations - History of Present Illness Initial Comments: This is a 27-year-old female who presents to the emergency department for lower back pain. Patient has herniated disks at L3-S1 and is scheduled to have surgery for this with Dr. Johnson on 12/07/22. She did just have oxycodone and prednisone added to her pain regimen today along with the Lyrica and Flexeril that she has been taking. States that she felt okay earlier today after taking the new medications, however tonight the pain flared up again and she has been unable to sleep. Denies any new injuries or loss of bowel/bladder control. Denies any fevers, chills, sore throat, cough, dyspnea, chest pain, palpitations, abdominal pain, nausea, vomiting, diarrhea, or headaches. MD Complaint: back pain - Related Data Home Medications Medication Instructions Recorded Confirmed Fluticasone Nasal [place] [Flonase 1 spray EA NOSTRIL DAILY PRN 07/12/22 09/13/22 Nasal [place]] Omeprazole 20 mg PO DAILY 09/07/22 09/13/22 Previous Rx's Medication Instructions Recorded Ibuprofen [Motrin] 800 mg PO Q8H #30 tab 07/14/22 methocarbamoL [Robaxin-750] 750 mg PO QID PRN #30 tab 07/14/22 predniSONE 50 mg PO DAILY #5 tab 11/22/22 Allergies Allergy/AdvReac Type Severity Reaction Status Date / Time No Known Allergies Allergy Verified 11/27/22 00:59 Review of Systems ROS Statement: Those systems with pertinent positive or pertinent negative responses have been documented in the HPI. ROS Other: All systems not noted in ROS Statement are negative. Past Medical History Past Medical History: Asthma Additional Past Medical History / Comment(s): Asthma-pt states she has not needed to use her inhaler past couple years, sinusitis. Back pain. kidney stones History of Any Multi-Drug Resistant Organisms: None Reported Past Surgical History: Adenoidectomy, Appendectomy, Tonsillectomy Additional Past Surgical History / Comment(s): Sinus washing, Past Anesthesia/Blood Transfusion Reactions: No Reported Reaction, Motion Sickness Past Psychological History: Anxiety, Depression Smoking Status: Vaper Past Alcohol Use History: Occasional Past Drug Use History: None Reported - Past Family History Mother Family Medical History: No Reported History Father Additional Family Medical History / Comment(s): Father is an alcoholic and has drug addiction. General Exam Limitations: no limitations General appearance: alert, in distress Head exam: Present: atraumatic, normocephalic, normal inspection Respiratory exam: Present: normal lung sounds bilaterally. Absent: respiratory distress, wheezes, rales, rhonchi, stridor Cardiovascular Exam: Present: regular rate, normal rhythm, normal heart sounds. Absent: systolic murmur, diastolic murmur, rubs, gallop, clicks Back exam: Present: normal inspection. Absent: full ROM (secondary to pain) Neurological exam: Present: alert, oriented X3, CN II-XII intact Psychiatric exam: Present: normal affect, normal mood Skin exam: Present: warm, dry, intact, normal color. Absent: rash Course Vital Signs 11/27/22 11/27/22 00:59 03:03 Temperature 97.5 F L 98.0 F Pulse Rate 90 85 Respiratory 18 18 Rate Blood Pressure 120/69 124/72 O2 Sat by Pulse 98 98 Oximetry Medical Decision Making - Medical Decision Making This is a 27-year-old female who presents to the emergency department for lower back pain. Was pt. sent in by a medical professional or institution? @ -No Did you speak to anyone other than the patient for history? @ -No Did you review nursing and triage notes? @ -Yes, and I agree, it is accurate with regards to the patient's symptoms. Were old charts reviewed? @ -No Differential Diagnosis? @ -Differential Back Pain: Strain, zoster, cauda equina syndrome, epidural abscess, vertebral osteomyelitis, discitis, fracture, subluxation, disc herniation, DJD, spinal stenosis, dissection, AAA, pancreatitis, peptic ulcer disease, pyelonephritis, k idney stone, this is not meant to be an all-inclusive list. EKG interpreted by me (3pts min.)? @ -Not obtained X-rays interpreted by me (1pt min.)? @ -Not obtained CT interpreted by me (1pt min.)? @ -Not obtained U/S interpreted by me (1pt. min.)? @ -Not obtained What testing was considered but not performed? (CT, X-rays, U/S, labs)? Why? @ -None What meds were considered but not given? Why? @ -None Did you discuss the management of the patient with other professionals? @ -No Did you reconcile home meds? @ -No Was smoking cessation discussed for >3mins.? @ -No Was critical care preformed (if so, how long)? @ -No Were there social determinants of health that impacted care today? How? (Homelessness, low income, unemployed, alcoholism, drug addiction, transportation, low edu. Level, literacy, decrease access to med. care, custodial, rehab)? @ -No Was there de-escalation of care discussed even if they declined? (Discuss DNR or withdrawal of care, Hospice)? @ -No What co-morbidities impacted this encounter? (DM, HTN, Smoking, COPD, CAD, Cancer, CVA, Hep., AIDS, mental health diagnosis, sleep apnea, morbid obesity)? @ -Herniated discs Was patient admitted / discharged? @ -Discharged. Given that there were no new injuries and symptoms have not changed, no imaging is indicated. Pain was controlled with Toradol, Dilaudid, and Valium, which is what she has received in the past and is often effective. She was discharged home in stable condition and will otherwise continue to take her pain medication as prescribed and follow-up with Dr. Johnson. Undiagnosed new problem with uncertain prognosis? @ -None Drug Therapy requiring intensive monitoring for toxicity (Heparin, Nitro, Insulin, Cardizem)? @ -None Were any procedures done? @ -None Diagnosis/symptom? @ -Lumbar disc herniation Acute, or Chronic, or Acute on Chronic? @ -Chronic Uncomplicated (without systemic symptoms) or Complicated (systemic symptoms)? @ -Uncomplicated Side effects of treatment? @ -None Exacerbation, Progression, or Severe Exacerbation] @ -Exacerbation Poses a threat to life or bodily function? @ -Yes, the pain does limit her ability to function. Return precautions reviewed in depth, the patient is instructed to return to the emergency department with any new, worsening, or concerning symptoms. Patient verbalized understanding. This case was discussed in detail with the attending ED physician, Dr. Landis. Presentation, findings, and treatment plan discussed in detail as well. Disposition Clinical Impression: Lumbar disc herniation Disposition: HOME SELF-CARE Instructions (If sedation given, give patient instructions): Lumbar Disc Herniation (ED) Additional Instructions: Return to the emergency department with any new, worsening, or concerning symptoms. Continue to take your pain medication as prescribed and follow up with Dr. Johnson. Is patient prescribed a controlled substance at d/c from ED?: No Referrals: Jose Angel Rice DO [Primary Care Provider] - 1-2 days
[2022-11-27 03:05] VITALS: BP 124/72; PULSE 85; TEMP 98
== END 2022-11-27 03:05 | disposition home or self-care (01) ==
LOC: EC 00:57
DX: M51.26 Other intervertebral disc displacement, lumbar region (principal); J45.909 Unspecified asthma, uncomplicated; F17.290 Nicotine dependence, other tobacco product, uncomplicated; Z79.899 Other long term (current) drug therapy; Z86.59 Personal history of other mental and behavioral disorders
CPT/HCPCS: 99283; 96372 ×4; J1170; J1885

== ENCOUNTER 2022-11-28 23:28 | Inpatient (IN) | payer BC ==
[2022-11-29] MEDS ORDERED: HYDROmorphone 0.5 MG/0.5 ML SYRINGE IVP STA (00:30)
[2022-11-29] MEDS ORDERED: ORPHENADRINE 30 MG/ML 2 ML VIAL IM STA (00:31)
[2022-11-29] MEDS ORDERED: NALOXONE 0.4 MG/ML 1 ML VIAL IV PRN (01:40)
[2022-11-29] MEDS: KETOROLAC 15 MG/ML 1 ML VIAL IVP PRN ×2 (01:54→09:16)
--- NOTE | 2022-11-29 02:04 | ED ---
General Adult HPI - General Chief complaint: Back Pain/Injury Stated complaint: BACK PAIN Time Seen by Provider: 11/29/22 00:04 Source: patient Mode of arrival: ambulatory Limitations: no limitations - History of Present Illness Initial comments: Patient is a 27-year-old female who presents to the emergency department for back pain. Patient has chronic back pain secondary to herniated disc. She follows with Dr. Johnson. States she has surgery on December 07. Patient has been in the emergency department several times recently for back pain. States shortly after she is discharged she has severe pain resulting in little sleep. Patient currently prescribed Tylenol with codeine, diazepam, Flexeril, prednisone. She does have numbness and tingling down her right lower extremity which is not new. She denies any new numbness and tingling. No saddle anesthesia. No leg weakness. No loss of bowel or bladder function. No fever, chills, nausea, vomiting, burning with urination, blood in urine. - Related Data Home Medications Medication Instructions Recorded Confirmed Fluticasone Nasal [place] [Flonase 1 spray EA NOSTRIL DAILY PRN 07/12/22 09/13/22 Nasal [place]] Omeprazole 20 mg PO DAILY 09/07/22 09/13/22 Previous Rx's Medication Instructions Recorded Ibuprofen [Motrin] 800 mg PO Q8H #30 tab 07/14/22 methocarbamoL [Robaxin-750] 750 mg PO QID PRN #30 tab 07/14/22 predniSONE 50 mg PO DAILY #5 tab 11/22/22 Allergies Allergy/AdvReac Type Severity Reaction Status Date / Time No Known Allergies Allergy Verified 11/28/22 23:37 Review of Systems ROS Statement: Those systems with pertinent positive or pertinent negative responses have been documented in the HPI. ROS Other: All systems not noted in ROS Statement are negative. Past Medical History Past Medical History: Asthma Additional Past Medical History / Comment(s): Asthma-pt states she has not needed to use her inhaler past couple years, sinusitis. Back pain. kidney stones History of Any Multi-Drug Resistant Organisms: None Reported Past Surgical History: Adenoidectomy, Appendectomy, Tonsillectomy Additional Past Surgical History / Comment(s): Sinus washing, Past Anesthesia/Blood Transfusion Reactions: No Reported Reaction, Motion Sickness Past Psychological History: Anxiety, Depression Smoking Status: Vaper Past Alcohol Use History: Occasional Past Drug Use History: None Reported - Past Family History Mother Family Medical History: No Reported History Father Additional Family Medical History / Comment(s): Father is an alcoholic and has drug addiction. General Exam Limitations: no limitations General appearance: alert, in no apparent distress Respiratory exam: Present: normal lung sounds bilaterally. Absent: respiratory distress, wheezes, rales, rhonchi, stridor Cardiovascular Exam: Present: regular rate, normal rhythm, normal heart sounds. Absent: systolic murmur, diastolic murmur, rubs, gallop, clicks Extremities exam: Present: normal inspection, full ROM, normal capillary refill Back exam: Present: normal inspection, full ROM, paraspinal tenderness (lumbar). Absent: CVA tenderness (R), CVA tenderness (L), vertebral tenderness Neurological exam: Present: alert, oriented X3, CN II-XII intact Expanded Sensory exam: Upper Extremity Light Touch: Normal, Lower Extremity Light Touch: Normal Motor strength exam: RUE: 5, LUE: 5, RLE: 5, LLE: 5 Psychiatric exam: Present: normal affect, normal mood Skin exam: Present: warm, dry, intact, normal color. Absent: rash Course Vital Signs 11/28/22 23:37 Temperature 97.6 F Pulse Rate 102 H Respiratory 18 Rate Blood Pressure 127/66 O2 Sat by Pulse 99 Oximetry Medical Decision Making - Medical Decision Making Was pt. sent in by a medical professional or institution (Dr. PA, CERTIFIED WELDER, urgent care, hospital, or longterm...) When possible be specific @ -No Did you speak to anyone other than the patient for history (EMS, parent, family, police, friend...)? What history was obtained from this source @ -No Did you review nursing and triage notes (agree or disagree)? Why? @ -I reviewed and agree with nursing and triage notes Were old charts reviewed (outside hosp., previous admission, EMS record, old EKG, old radiological studies, urgent care reports/EKG's, longterm records)? Report findings @ -No old charts were reviewed Differential Diagnosis (chest pain, altered mental status, abdominal pain women, abdominal pain men, vaginal bleeding, weakness, fever, dyspnea, syncope, hea dache, dizziness, GI bleed, back pain, seizure, CVA, palpatations, mental health)? @ -Differential Back Pain: Strain, zoster, cauda equina syndrome, epidural abscess, vertebral os teomyelitis, discitis, fracture, subluxation, disc herniation, DJD, spinal stenosis, dissection, AAA, pancreatitis, peptic ulcer disease, pyelonephritis, kidney stone, this is not meant to be an all-inclusive list. EKG interpreted by me (3pts min.). @ -As above X-rays interpreted by me (1pt min.). @ -None done CT interpreted by me (1pt min.). @ -None done U/S interpreted by me (1pt. min.). @ -None done What testing was considered but not performed or refused? (CT, X-rays, U/S, labs)? Why? @ -None What meds were considered but not given or refused? Why? @ -None Did you discuss the management of the patient with other professionals (professionals i.e. , PA, CERTIFIED WELDER, lab, RT, psych nurse, social media project manager, torpedo worker, teacher, senior credit officer, case management rn)? Give summary @ -No Was smoking cessation discussed for >3mins.? @ -No Was critical care preformed (if so, how long)? @ -No Were there social determinants of health that impacted care today? How? (Homelessness, low income, unemployed, alcoholism, drug addiction, transportation, low edu. Level, literacy, decrease access to med. care, fci, rehab)? @ -No Was there de-escalation of care discussed even if they declined (Discuss DNR or withdrawal of care, Hospice)? DNR status @ -No What co-morbidities impacted this encounter? (DM, HTN, Smoking, COPD, CAD, Cancer, CVA, ARF, Chemo, Hep., AIDS, mental health diagnosis, sleep apnea, morbid obesity)? @ -None Was patient admitted / discharged? Hospital course, mention meds given and route, prescriptions, significant lab abnormalities, going to OR and other pertinent info. @ -Patient presented with acute on chronic back pain. No recent injury, no neurological deficit. Patient and mother requesting admission for pain control state patient has not been able to sleep in several days due to pain. This is reasonable as patient has been here 5 times in the past 10 days. Case discussed with Zia Geller who accepts admission. Pain controlled with Dilaudid patient admitted in stable condition. Undiagnosed new problem with uncertain prognosis? @ -No] Drug Therapy requiring intensive monitoring for toxicity (Heparin, Nitro, Insulin, Cardizem)? @ -[No] Were any procedures done? @ -[No] Diagnosis/symptom? @ -intractable back pain Acute, or Chronic, or Acute on Chronic? @ -acute Uncomplicated (without systemic symptoms) or Complicated (systemic symptoms)? @ -uncomplicated Side effects of treatment? @ -[No] Exacerbation, Progression, or Severe Exacerbation? @ -[No] Poses a threat to life or bodily function? How? (Chest pain, [place], [place], pneumonia, PE, COPD, DKA, ARF, appy, cholecystitis, CVA, Diverticulitis, Homicidal, Suicidal, threat to staff... and all critical care pts) @ -No Dr. Landis is my attending Disposition Clinical Impression: Intractable back pain Disposition: ADMITTED IP TO THIS [facility] Condition: Good
[2022-11-29] MEDS: SODIUM CHLORIDE 0.9% 1,000 ML IV SCH ×2 (03:13→18:16)
[2022-11-29] MEDS: HYDROmorphone 0.5 MG/0.5 ML SYRINGE IVP PRN ×6 (03:43→23:53)
[2022-11-29] MEDS ORDERED: ACETAMINOPHEN TAB 500 MG TAB PO PRN (11:28)
[2022-11-29] MEDS ORDERED: DEXAMETHASONE SOD PHOSPHATE 4 MG/ML 1 ML VIAL IVP PRN (11:32)
--- NOTE | 2022-11-29 11:54 | P.HPOR ---
History of Present Illness H&P Date: 11/29/22 Chief Complaint: Low back pain; right lower extremity pain Patient is a 27-year-old female who presented the emergency department last night with worsening/increasing low back pain and right lower extremity pain. Patient is a known patient to Dr. Suero office. Patient did see Dr. Johnson this past Saturday and has surgery scheduled for next 12/07/2022 for L5-S1 microdiscectomy. Patient says over the past several days her pain has been too intense and she has had several trips to the emergency department over the past couple weeks. Patient says she normally takes oxycodone 5 mg/325 mg, Lyrica, Flexeril, Valium at home. Patient feels the medications help a little bit but only lasts for a couple hours at a time. Patient feels that the pain is increased to the point where it affects her gait and she has to limp when she is at home. Patient denies any perineal numbness/tingling. Patient denies saddle anesthesia. In early September 2022 patient did have epidural steroid injection performed by interventional radiologist at the hospital. Patient says this did help until about mid October when the pain began to come back and the low back and right lower extremity. Patient says the pain worsens when she keeps her leg straight and tries raise it up off the bed. Patient says the pain is alleviated when she flexes the knee and pulsatile leg and towards her chest. Patient denies any other changes. MRI lumbar spine was performed last night in the hospital which did demonstrate L5- S1 disc herniation with some impingement on S1 on the right. Patient denies any trauma/falls. Patient denies chest pain, fever, shortness breath, nausea, continuity, loss/bladder control Past Medical History Past Medical History: Asthma Additional Past Medical History / Comment(s): Asthma-pt states she has not needed to use her inhaler past couple years, sinusitis. Back pain. kidney stones History of Any Multi-Drug Resistant Organisms: None Reported Past Surgical History: Adenoidectomy, Appendectomy, Tonsillectomy Additional Past Surgical History / Comment(s): Sinus washing, Past Anesthesia/Blood Transfusion Reactions: No Reported Reaction, Motion Sickness Past Psychological History: Anxiety, Depression Additional Psychological History / Comment(s): Pt resides with her mother and brother. She is independent. -NO MEDS NEEDED AT THIS TIME Smoking Status: Vaper Past Alcohol Use History: Occasional Additional Past Alcohol Use History / Comment(s): Pt vapes every day. Past Drug Use History: None Reported - Past Family History Mother Family Medical History: No Reported History Father Additional Family Medical History / Comment(s): Father is an alcoholic and has drug addiction. Medications and Allergies Home Medications Medication Instructions Recorded Confirmed Type Acetaminophen Tab [Tylenol Tab] 500 - 1,000 mg PO Q6H PRN 11/29/22 11/29/22 History Cyclobenzaprine [Flexeril] 10 mg PO TID 11/29/22 11/29/22 History Pregabalin [Lyrica] 150 mg PO BID 11/29/22 11/29/22 History diazePAM [Valium] 10 mg PO HS 11/29/22 11/29/22 History oxyCODONE-APAP 5-325MG [Percocet 1 tab PO Q6H PRN 11/29/22 11/29/22 History 5-325 mg] predniSONE 12.5 mg PO DAILY 11/29/22 11/29/22 History Allergies Allergy/AdvReac Type Severity Reaction Status Date / Time No Known Allergies Allergy Verified 11/29/22 08:37 Physical Examination Inspection: Negative for any open fractures, significant erythema/ecchymosis/ulcers. Sensation: Sensation is equal, symmetric, by intact throughout the upper extremities. There is some diminished sensation throughout the back of the right leg from the gluteus to the knee. Sensation equal, symmetric, intact throughout the rest bilateral lower extremities. Palpation: Significant tenderness to the palpation throughout the lower lumbar spine at midline and at the right SI joint. Moderate TTP with left SI joint. Nontender to palpation throughout rest of exam Range of motion: Patient has full range of motion bilateral upper extremities and left lower extremity exam. Patient has full range of motion in right lower extremity and right knee flexion/extension and right ankle dorsi and plantar flexion and EHL/FHL. There is limited range of motion secondary to referred pain from the low back in the right hip in flexion/extension. Motor: 5/5 in all major motor groups in bilateral upper extremities on exam. 5/5 in all major motor groups in left lower extremity on exam. 5/5 in resisted right ankle dorsi/plantar flexion and EHL/FHL. 5/5 in resisted right knee flexion/extension. 4/5 in resisted right hip flexion extension Special tests: Positive straight leg raise on the right. Negative Homans bilaterally. Negative Tawanda bilaterally. Negative clonus bilaterally. Neurovascular status:cap Refill under 3 seconds in digits upper extremities. Radial pulse intact, 2+ bilaterally. DP pulses intact bilaterally. Results - Diagnostic results Lumbar MRI with/without contrast: report reviewed, image reviewed (L5-S1 disc herniation with encroachment on the S1 nerve root on the right.) Assessment and Plan Assessment: 1. Low back pain; right lower extremity radiculopathy Plan: 1. Low back pain; right lower extremity radiculopathy - patient was seen at bedside this morning. MRI of lumbar spine performed last night in the hospital does demonstrate L5-S1 disc herniation with encroachment on the S1 nerve root on the right. At this time patient does already have surgery scheduled for next 12/07/2022 - L5-S1 microdiscectomy. At this time we are recommending continued measures via the use of pain medication. 4 mg Decadron IV every 6 hours ordered to help with symptoms. Appreciate medical management. PT/OT recommendations. I'll discuss the findings with Dr. Johnson before proceeding with any potential intervention. We will continue to follow patient during her stay in hospital. 2. Appreciate medical management 3. Pain management - patient can resume home medications including Percocet 5 mg/325 mg; Flexeril; Lyrica 4. GI prophylaxis - senna 5. DVT prophylaxis recommendations 6. PT/OT - weightbearing as tolerated with walker if necessary 7. Encourage incentive spirometer use Time with Patient: Less than 30
[2022-11-29] MEDS: oxyCODONE-APAP 5-325MG 1 EACH TAB PO PRN ×2 (13:39→21:33)
[2022-11-29] MEDS: DEXAMETHASONE SOD PHOSPHATE 4 MG/ML 1 ML VIAL IVP SCH ×3 (13:40→23:53)
[2022-11-29] MEDS: ONDANSETRON 4 MG/2 ML VIAL IVP PRN (14:11)
[2022-11-29] MEDS: SENNOSIDES 8.6 MG TAB PO SCH (14:39)
--- NOTE | 2022-11-29 15:11 | P.CONS ---
History of Present Illness - Reason for Consult Consult date: 11/29/22 - History of Present Illness Patient is a 27-year-old female with history of chronic back pain presenting with worsening back pain. She has seen over the spine in the clinic and surgery has been scheduled for 12/07/22. [facility] physicians consulted for medical management. Currently, temperature is 97.5, pulse 91, respiratory rate 16, blood pressure 119/75, saturating 90% on room air. Laboratory data available. Pertinent positives and negatives as discussed in HPI, a complete review of systems was performed and all other systems are negative. Patient seen and examined at bedside. [] Vital signs reviewed General: nontoxic, no distress, appears at stated age Derm: warm, dry Head: atraumatic, normocephalic, symmetric Eyes: EOMI, no lid lag, anicteric sclera, pupils equal round reactive to light ENT: Nose and ears atraumatic Neck: No thyromegaly, supple Mouth: no lip lesion, mucus membranes moist Cardiovascular: S1S2 reg, no murmur, no edema Lungs: clear to auscultation bilateral, no rhonchi, no rales, no wheeze, no accessory muscle use Abdominal: soft, nontender to palpation, no guarding, no appreciable organomegaly Ext: no gross muscle atrophy, muscle strength muscle strength 5 out of 5 in all 4 extremities, no contractures Neuro: CN II-XII grossly intact Psych: Alert, oriented, appropriate affect Assessment/Plan: Acute on chronic back pain with radiculopathy -On dexamethasone 4 mg IV every 6 hours, cyclobenzaprine, diazepam, oral Tylenol, IV Dilaudid, oral Percocet, Lyrica -Senna daily -CBC and CMP ordered -No other medical problems Thank you for allowing us to participate in the care of this pleasant patient. Do not hesitate to contact us with questions. Someone can be reached from the [facility] hospitalist group all hours of the day at [phone] or via [employer]. Past Medical History Past Medical History: Asthma Additional Past Medical History / Comment(s): Asthma-pt states she has not needed to use her inhaler past couple years, sinusitis. Back pain. kidney stones History of Any Multi-Drug Resistant Organisms: None Reported Past Surgical History: Adenoidectomy, Appendectomy, Tonsillectomy Additional Past Surgical History / Comment(s): Sinus washing, Past Anesthesia/Blood Transfusion Reactions: No Reported Reaction, Motion Sickness Past Psychological History: Anxiety, Depression Additional Psychological History / Comment(s): Pt resides with her mother and brother. She is independent. -NO MEDS NEEDED AT THIS TIME Smoking Status: Vaper Past Alcohol Use History: Occasional Additional Past Alcohol Use History / Comment(s): Pt vapes every day. Past Drug Use History: None Reported - Past Family History Mother Family Medical History: No Reported History Father Additional Family Medical History / Comment(s): Father is an alcoholic and has drug addiction. Medications and Allergies Home Medications Medication Instructions Recorded Confirmed Type Acetaminophen Tab [Tylenol Tab] 500 - 1,000 mg PO Q6H PRN 11/29/22 11/29/22 History Cyclobenzaprine [Flexeril] 10 mg PO TID 11/29/22 11/29/22 History Pregabalin [Lyrica] 150 mg PO BID 11/29/22 11/29/22 History diazePAM [Valium] 10 mg PO HS 11/29/22 11/29/22 History oxyCODONE-APAP 5-325MG [Percocet 1 tab PO Q6H PRN 11/29/22 11/29/22 History 5-325 mg] predniSONE 12.5 mg PO DAILY 11/29/22 11/29/22 History Allergies Allergy/AdvReac Type Severity Reaction Status Date / Time No Known Allergies Allergy Verified 11/29/22 08:37 Physical Exam Vitals: Vital Signs Temp Pulse Pulse Resp BP BP Pulse Ox 11/29/22 07:00 97.5 F L 91 16 119/75 100 11/29/22 03:00 97.6 F 78 16 124/75 99 11/29/22 02:39 97.9 F 76 20 134/74 97 11/29/22 02:18 97.9 F 76 20 134/74 97 11/28/22 23:37 97.6 F 102 H 18 127/66 99 Intake and Output 11/29/22 11/29/22 11/29/22 06:59 14:59 22:59 Intake Total 118 Balance 118 Intake: Oral 118 Other: # Voids 1 1 Weight 79.379 kg
[2022-11-29] MEDS: CYCLOBENZAPRINE 10 MG TAB PO SCH ×2 (18:11→21:21)
[2022-11-29] MEDS: diazePAM 5 MG TAB PO SCH (21:21)
[2022-11-29] MEDS: PREGABALIN 75 MG CAP PO SCH (21:21)
[2022-11-30] MEDS: HYDROmorphone 0.5 MG/0.5 ML SYRINGE IVP PRN ×6 (03:10→20:45)
[2022-11-30] MEDS: SODIUM CHLORIDE 0.9% 1,000 ML IV SCH ×2 (03:12→20:47)
[2022-11-30] MEDS: DEXAMETHASONE SOD PHOSPHATE 4 MG/ML 1 ML VIAL IVP SCH ×3 (05:42→18:08)
[2022-11-30] MEDS: SENNOSIDES 8.6 MG TAB PO SCH (08:14)
[2022-11-30] MEDS: PREGABALIN 75 MG CAP PO SCH ×2 (08:14→21:31)
[2022-11-30] MEDS: CYCLOBENZAPRINE 10 MG TAB PO SCH ×3 (08:14→21:31)
[2022-11-30] MEDS ORDERED: SENNOSIDES 8.6 MG TAB PO SCH (09:00)
[2022-11-30 10:50] LABS: HCT 43.4 % (37.2-46.3); MCH 30.4 pg (27.0-32.0); MCHC 32.3 g/dL (32.0-37.0); MCV 94.1 fL (80.0-97.0); Mean Platelet Volume 9.6 fL (9.5-12.2); NRBC Per 100 WBC 0 /100 WBCS (0.0-0.0); Platelet Count 452 X 10*3/uL (140-440); RBC 4.61 X 10*6/uL (4.10-5.20); RDW 13.3 % (11.5-14.5); WBC 27.59 X 10*3/uL (4.50-10.00)
[2022-11-30 11:07] LABS: African American GFR (CKD) 118.8 (60.0-200.0); Albumin 4.8 g/dL (3.8-4.9); Albumin/Globulin Ratio 1.78 (1.60-3.17); Anion Gap 10.3 mmol/L (10.00-18.00); BUN/Creat Ratio 10.75 Ratio (12.00-20.00); Blood Urea Nitrogen 8.6 mg/dL (9.0-27.0); Carbon Dioxide 26.7 mmol/L (20.0-27.5); Globulin 2.7 g/dL (1.6-3.3); Non-African American GFR(CKD) 102.5 (60.0-200.0); Potassium 4.2 mmol/L (3.5-5.5); Total Bilirubin 0.3 mg/dL (0.30-1.20); Total Protein 7.5 g/dL (6.2-8.2)
--- NOTE | 2022-11-30 11:22 | P.PN ---
Subjective Progress Note Date: 11/30/22 Subjective: In seen and examined at bedside. No acute events overnight. Continues to have significant back pain with radicular symptoms. Denies any other complaints. Pertinent positives and negatives as discussed above, a complete review of systems was performed and all other systems are negative. Vitals Signs Reviewed. General: nontoxic, no distress, appears at stated age Derm: warm, dry Head: atraumatic, normocephalic, symmetric Eyes: EOMI, no lid lag, anicteric sclera Mouth: no lip lesion, mucus membranes moist Cardiovascular: S1S2 reg, no murmur Lungs: CTA bilateral, no rhonchi, no rales , no accessory muscle use Abdominal: soft, nontender to palpation, no guarding, no appreciable organomegaly Ext: no gross muscle atrophy, no edema, no contractures, difficulty moving her right lower extremity due to pain Neuro: CN II-XI grossly intact, no focal neuro deficits Psych: Alert, oriented, appropriate affect Data Reviewed Today: Pertinent Labs: WBC 27.59, platelets 452, creatinine 0.8, glucose 134 Assessment and Plan: Acute on chronic back pain with radiculopathy Leukocytosis, reactive steroid-induced Thrombocytosis, reactive Hyperglycemia, steroid-induced -On dexamethasone 4 mg IV every 6 hours, cyclobenzaprine, diazepam, oral Tylenol, IV Dilaudid, oral Percocet, Lyrica -Senna daily -No additional medications -No other medical problems -Pending further recommendations from orthospine Thank you for allowing us to participate in the care of this pleasant patient. Do not hesitate to contact us with questions. Someone can be reached from the [facility] hospitalist group all hours of the day at [phone] or via [employer]. Objective - Vital Signs Vital signs: Vital Signs Temp 97.5 F L 11/30/22 07:00 Pulse 59 L 11/30/22 08:00 Resp 16 11/30/22 08:00 BP 108/64 11/30/22 07:00 Pulse Ox 97 11/30/22 07:00 FiO2 Intake & Output 11/29/22 11/30/22 11/30/22 18:59 06:59 18:59 Intake Total 709 118 Balance 709 118 Intake: Oral 709 118 Other: # Voids 1 2 - Labs CBC & Chem 7: 11/30/22 06:28 05/19/23 06:28 Labs: Abnormal Lab Results - Last 24 Hours (Table) 11/30/22 11/30/22 Range/Units 06:28 06:28 WBC 27.59 H (4.50-10.00) X 10*3/uL Plt Count 452 H (140-440) X 10*3/uL BUN 8.6 L (9.0-27.0) mg/dL BUN/Creatinine Ratio 10.75 L (12.00-20.00) Ratio Glucose 134 H (70-110) mg/dL
[2022-11-30 11:23] LABS: Basophils # (M) 0.28 X 10*3/uL (0.00-0.10); Eosinophils # (M) 0 X 10*3/uL (0.04-0.35); Lymphocytes # (M) 2.76 X 10*3/uL (0.90-5.00); Metamyelocytes % 1 % (0-0); Monocytes # (M) 0.28 X 10*3/uL (0.20-1.00); Neutrophils % (M) 87 %; RBC Morphology NORMAL
--- NOTE | 2022-11-30 13:35 | P.PN ---
Subjective Progress Note Date: 11/30/22 Principal diagnosis: 1. Low back pain; right lower extremity radiculopathy Patient seen at bedside this morning lying in semirecumbent position. Patient says she is still having low back pain at this time. Patient says about 1 hour ago she received a dose of IV Dilaudid as well as Flexeril. Patient says she is tired currently. Patient says she is hoping she'll be able to have surgery early next week. Patient feels that if she goes home she'll not be able tolerate the pain. Patient denies any new changes. Patient denies chest pain, fever, shortness breath, nausea, vomiting, change in vision, loss of bowel/bladder control. Objective - Vital Signs Vital signs: Vital Signs Temp 97.5 F L 11/30/22 07:00 Pulse 59 L 11/30/22 07:00 Resp 16 11/30/22 07:00 BP 108/64 11/30/22 07:00 Pulse Ox 97 11/30/22 07:00 FiO2 Intake & Output 11/29/22 11/30/22 11/30/22 18:59 06:59 18:59 Intake Total 709 118 Balance 709 118 Intake: Oral 709 118 Other: # Voids 1 2 - Exam Inspection: Negative for any open fractures, significant erythema/ecchymosis/ulcers. Sensation: Sensation is equal, symmetric, by intact throughout the upper extremities. There is some diminished sensation throughout the back of the right leg from the gluteus to the knee. Sensation equal, symmetric, intact throughout the rest bilateral lower extremities. Palpation: Significant tenderness to the palpation throughout the lower lumbar spine at midline and at the right SI joint. Moderate TTP with left SI joint. Nontender to palpation throughout rest of exam Range of motion: Patient has full range of motion bilateral upper extremities and left lower extremity exam. Patient has full range of motion in right lower extremity and right knee flexion/extension and right ankle dorsi and plantar flexion and EHL/FHL. There is limited range of motion secondary to referred pain from the low back in the right hip in flexion/extension. Motor: 5/5 in all major motor groups in bilateral upper extremities on exam. 5/5 in all major motor groups in left lower extremity on exam. 5/5 in resisted right ankle dorsi/plantar flexion and EHL/FHL. 5/5 in resisted right knee flexion/extension. 4/5 in resisted right hip flexion extension Special tests: Positive straight leg raise on the right. Negative Homans bilaterally. Negative Tawanda bilaterally. Negative clonus bilaterally. Neurovascular status:cap Refill under 3 seconds in digits upper extremities. Radial pulse intact, 2+ bilaterally. DP pulses intact bilaterally. - Labs CBC & Chem 7: 11/30/22 06:28 11/30/22 06:28 Assessment and Plan Assessment: 1. Low back pain; right lower extremity radiculopathy Plan: 1. Low back pain; right lower extremity radiculopathy - patient was seen at bedside this morning. MRI of lumbar spine performed during stay in the hospital does demonstrate L5-S1 disc herniation with encroachment on the S1 nerve root on the right. Due to patient's symptoms and now that patient is inpatient we have moved surgery up to 12/03/2022 for lumbar L5-S1 microdiscectomy. Patient is to remain nothing by mouth beginning after midnight on saturday. At this time we are recommending continued measures via the use of pain medication. 4 mg Decadron IV every 6 hours ordered to help with symptoms. Appreciate med ica management. PT/OT recommendations. We will continue to follow patient during her stay in hospital. 2. Appreciate medical management 3. Pain management - patient can resume home medications including Percocet 5 mg/325 mg; Flexeril; Lyrica 4. GI prophylaxis - senna 5. DVT prophylaxis recommendations 6. PT/OT - weightbearing as tolerated with walker if necessary 7. Encourage incentive spirometer use Time with Patient: Less than 30
[2022-11-30] MEDS: oxyCODONE-APAP 5-325MG 1 EACH TAB PO PRN (18:08)
[2022-11-30] MEDS: ONDANSETRON 4 MG/2 ML VIAL IVP PRN (20:55)
[2022-11-30] MEDS: diazePAM 5 MG TAB PO SCH (21:31)
[2022-12-01] MEDS: DEXAMETHASONE SOD PHOSPHATE 4 MG/ML 1 ML VIAL IVP SCH ×4 (00:50→17:56)
[2022-12-01] MEDS: HYDROmorphone 0.5 MG/0.5 ML SYRINGE IVP PRN ×6 (01:02→20:21)
[2022-12-01] MEDS: oxyCODONE-APAP 5-325MG 1 EACH TAB PO PRN (03:45)
--- NOTE | 2022-12-01 07:05 | P.PN ---
Subjective Progress Note Date: 12/01/22 Principal diagnosis: L5-S1 HNP, low back pain, lower extremity radiculopathy Patient was evaluated today at bedside, she was sleeping upon entry to the room. Patient was easily awoken. She states the pain is currently under control with current medications. She was able to have a bowel movement yesterday. She has been urinating with no difficulties. She continues to have radicular symptoms involving the right lower extremity. She denies any numbness or tingling in the peroneal or genital. She denies any headaches, lightheadedness, chest pain or shortness of breath Objective - Vital Signs Vital signs: Vital Signs Temp 97.8 F 12/01/22 00:59 Pulse 83 12/01/22 00:59 Resp 17 12/01/22 00:59 BP 113/65 12/01/22 00:59 Pulse Ox 99 12/01/22 00:59 FiO2 Intake & Output 11/30/22 11/30/22 12/01/22 06:59 18:59 06:59 Intake Total 118 Balance 118 Intake: Oral 118 Other: # Voids 2 7 2 - Exam Inspection: Negative for any open fractures, significant erythema/ecchymosis/ulcers. Sensation: Sensation is equal, symmetric, by intact throughout the upper extremities. There is some diminished sensation throughout the back of the right leg from the gluteus to the knee. Sensation equal, symmetric, intact throughout the rest bilateral lower extremities. Palpation: Significant tenderness to the palpation throughout the lower lumbar spine at midline and at the right SI joint. Moderate TTP with left SI joint. Nontender to palpation throughout rest of exam Range of motion: Patient has full range of motion bilateral upper extremities and left lower extremity exam. Patient has full range of motion in right lower extremity and right knee flexion/extension and right ankle dorsi and plantar flexion and EHL/FHL. There is limited range of motion secondary to referred pain from the low back in the right hip in flexion/extension. Motor: 5/5 in all major motor groups in bilateral upper extremities on exam. 5/5 in all major motor groups in left lower extremity on exam. 5/5 in resisted right ankle dorsi/plantar flexion and EHL/FHL. 5/5 in resisted right knee flexion/extension. 4/5 in resisted right hip flexion extension Special tests: Positive straight leg raise on the right. Negative Homans maria alejandra aterally. Negative Tawanda bilaterally. Negative clonus bilaterally. Neurovascular status:cap Refill under 3 seconds in digits upper extremities. Radial pulse intact, 2+ bilaterally. DP pulses intact bilaterally. - Labs CBC & Chem 7: 11/30/22 06:28 11/30/22 06:28 Labs: Abnormal Lab Results - Last 24 Hours (Table) 11/30/22 11/30/22 Range/Units 06:28 06:28 WBC 27.59 H (4.50-10.00) X 10*3/uL Plt Count 452 H (140-440) X 10*3/uL Plt Count Comment INCREASED A Metamyelocytes % 1 H (0-0) % Neutrophils # (Manual) 24.00 H (2.00-8.90) X 10*3/uL Eosinophils # (Manual) 0 L (0.04-0.35) X 10*3/uL Basophils # (Manual) 0.28 H (0.00-0.10) X 10*3/uL BUN 8.6 L (9.0-27.0) mg/dL BUN/Creatinine Ratio 10.75 L (12.00-20.00) Ratio Glucose 134 H (70-110) mg/dL Assessment and Plan Assessment: L5-S1 HNP Low back pain Right lower extremity radiculopathy Plan: Pain control, continue with current regimen. Discussed patient to try to limit the amount of IV pain medication that she is using. We will continue use of the decadron, we will decrease to 2 mg every 6 hours GI prophylaxis, continue use of oral stool softener DVT prophylaxis, and early ambulation Medical recommendations appreciated Surgery is scheduled for 12/03/[address] Johnson, this including microdiscectomy at L5-S1. We did discuss the case briefly today at bedside, this including risk and benefits. Pending surgery, possible discharge home on 12/03 versus 12/04/2022. NPO after midnight on 12/02/2022 Time with Patient: Less than 30
[2022-12-01] MEDS: PREGABALIN 75 MG CAP PO SCH ×2 (08:07→21:57)
[2022-12-01] MEDS: CYCLOBENZAPRINE 10 MG TAB PO SCH ×3 (08:07→21:57)
[2022-12-01] MEDS: SENNOSIDES 8.6 MG TAB PO SCH (08:07)
[2022-12-01] MEDS: SODIUM CHLORIDE 0.9% 1,000 ML IV SCH ×2 (08:13→20:22)
--- NOTE | 2022-12-01 13:14 | P.PN ---
Subjective Progress Note Date: 12/01/22 Subjective: Patient seen and examined at bedside. No acute events overnight. Continues to have significant back pain with radicular symptoms. Denies any other complaints. Pertinent positives and negatives as discussed above, a complete review of systems was performed and all other systems are negative. Vitals Signs Reviewed. General: nontoxic, no distress, appears at stated age Derm: warm, dry Head: atraumatic, normocephalic, symmetric Eyes: EOMI, no lid lag, anicteric sclera Mouth: no lip lesion, mucus membranes moist Cardiovascular: S1S2 reg, no murmur Lungs: CTA bilateral, no rhonchi, no rales , no accessory muscle use Abdominal: soft, nontender to palpation, no guarding, no appreciable organomegaly Ext: no gross muscle atrophy, no edema, no contractures, difficulty moving her right lower extremity due to pain Neuro: CN II-XI grossly intact, no focal neuro deficits Psych: Alert, oriented, appropriate affect Data Reviewed Today: Pertinent Labs: none today temp 98.3, HR 71, RR 18, 128/65, 99% on RA Assessment and Plan: Acute on chronic back pain with radiculopathy Leukocytosis, reactive steroid-induced Thrombocytosis, reactive Hyperglycemia, steroid-induced -On dexamethasone 4 mg IV every 6 hours, cyclobenzaprine, diazepam, oral Tylenol, IV Dilaudid, oral Percocet, Lyrica -Senna daily -No additional medications -No other medical problems -Orthospine note reviewed, pending surgery on 12/03 Thank you for allowing us to participate in the care of this pleasant patient. Do not hesitate to contact us with questions. Someone can be reached from the [facility] hospitalist group all hours of the day at [phone] or via [employer]. Objective - Vital Signs Vital signs: Vital Signs Temp 98.3 F 12/01/22 07:32 Pulse 71 12/01/22 08:00 Resp 18 12/01/22 08:00 BP 128/65 12/01/22 07:32 Pulse Ox 99 12/01/22 07:32 FiO2 Intake & Output 11/30/22 12/01/22 12/01/22 18:59 06:59 18:59 Intake Total 118 Balance 118 Intake: Oral 118 Other: # Voids 7 2 - Labs CBC & Chem 7: 11/30/22 06:28 11/30/22 06:28
[2022-12-01] MEDS: ONDANSETRON 4 MG/2 ML VIAL IVP PRN (13:24)
[2022-12-01] MEDS: diazePAM 5 MG TAB PO SCH (21:57)
[2022-12-02] MEDS: HYDROmorphone 0.5 MG/0.5 ML SYRINGE IVP PRN ×6 (00:29→21:27)
[2022-12-02] MEDS: DEXAMETHASONE SOD PHOSPHATE 4 MG/ML 1 ML VIAL IVP SCH ×5 (00:30→23:20)
[2022-12-02] MEDS: PREGABALIN 75 MG CAP PO SCH ×2 (08:34→21:28)
[2022-12-02] MEDS: CYCLOBENZAPRINE 10 MG TAB PO SCH ×3 (08:35→21:29)
[2022-12-02] MEDS: SENNOSIDES 8.6 MG TAB PO SCH (08:35)
--- NOTE | 2022-12-02 11:15 | P.PN ---
Subjective Progress Note Date: 12/02/22 Subjective: Patient seen and examined at bedside. No acute events overnight. Continues to have significant back pain with radicular symptoms. Denies any other complaints. Pertinent positives and negatives as discussed above, a complete review of systems was performed and all other systems are negative. Vitals Signs Reviewed. General: nontoxic, no distress, appears at stated age Derm: warm, dry Head: atraumatic, normocephalic, symmetric Eyes: EOMI, no lid lag, anicteric sclera Mouth: no lip lesion, mucus membranes moist Cardiovascular: S1S2 reg, no murmur Lungs: CTA bilateral, no rhonchi, no rales , no accessory muscle use Abdominal: soft, nontender to palpation, no guarding, no appreciable organomegaly Ext: no gross muscle atrophy, no edema, no contractures, difficulty moving her right lower extremity due to pain Neuro: CN II-XI grossly intact, no focal neuro deficits Psych: Alert, oriented, appropriate affect Data Reviewed Today: Pertinent Labs: none today temp 97.9, pulse 69, respiratory rate 18, blood pressure 119/75, saturating 100% on room air Assessment and Plan: Acute on chronic back pain with radiculopathy Leukocytosis, reactive steroid-induced Thrombocytosis, reactive Hyperglycemia, steroid-induced -On dexamethasone 2 mg IV every 6 hours, cyclobenzaprine, diazepam, oral Tylenol, IV Dilaudid, oral Percocet, Lyrica -Senna daily, bowel movement 2 days -No other medical problems -pending surgery on 12/03 Thank you for allowing us to participate in the care of this pleasant patient. Do not hesitate to contact us with questions. Someone can be reached from the [facility] hospitalist group all hours of the day at [phone] or via [employer]. Objective - Vital Signs Vital signs: Vital Signs Temp 97.9 F 12/02/22 07:00 Pulse 69 12/02/22 08:00 Resp 18 12/02/22 08:00 BP 119/75 12/02/22 07:00 Pulse Ox 100 12/02/22 07:00 FiO2 Intake & Output 12/01/22 12/02/22 12/02/22 18:59 06:59 18:59 Other: # Voids 3 2 0 - Labs CBC & Chem 7: 11/30/22 06:28 11/30/22 06:28
[2022-12-02] MEDS: SODIUM CHLORIDE 0.9% 1,000 ML IV SCH ×2 (12:56→22:38)
--- NOTE | 2022-12-02 20:18 | P.PN ---
Progress Note - Text Progress Note Date: 12/02/22 Spoke with nursing staff today regarding patients progress, she remains baseline. Pain is controlled on current regimen. Patient is scheduled for surgery on 12/03/2022, consent obtained prior to procedure. NPO after midnight. Further recommendations after surgery
[2022-12-02] MEDS: diazePAM 5 MG TAB PO SCH (21:29)
[2022-12-02] MEDS: oxyCODONE-APAP 5-325MG 1 EACH TAB PO PRN (22:37)
[2022-12-03] MEDS: HYDROmorphone 0.5 MG/0.5 ML SYRINGE IVP PRN ×5 (02:18→21:02)
[2022-12-03] MEDS: DEXAMETHASONE SOD PHOSPHATE 4 MG/ML 1 ML VIAL IVP SCH ×4 (05:57→23:00)
--- NOTE | 2022-12-03 06:18 | P.PN ---
Progress Note - Text Progress Note Date: 12/03/22 Spine Surgery Clinical and Risk Review Tamica Ramon is a 27 yo female presenting for evaluation of Low back pain, LE pain, weakness, numbness, and debility due to these. It was my pleasure to have seen and examined Tamica. In our visit today we have had a chance to go over subjective complaints, physical examination findings and treatments including the natural course history without intervention and various interventional options. The patients imaging demonstrates L5-S1 HNP with S1 encroachment. On physical exam, Tamica demonstrates +SLR on the right, +Contralateral SLR, Tensioning signs, Weakness with PF and FHL, radiculopathy in S1 along with severe back pain and pressure. I have explained to the patient that as their condition progresses it will cause further neurological deficits. Based on the patients imaging, physical exam, and the rapid progression and disabling nature of their symptoms, at this time I recommend surgery in the form or a: L5-S1 microdiscectomy. I discussed the risk and benefits of this procedure at length with Tamica. The patient and her mother agreed to considered pursuing the procedure abovementioned. Prior to surgery, she should follow up with her PCP (Cardio, ID, IM etc) for clearance. Questions were invited and answered, and the patient wishes to proceed as outlined below. Currently, I am recommendin. L5-S1 microdiscectomy 2. Follow up with PCP for surgical clearance 3. Review of surgical risks and benefits as well as an educational packet on the proposed surgical procedure. Risks: All surgical procedures come with inherent risks, including those related to positioning, anesthesia, intraoperative findings, and postoperative complications. It is important to understand that surgery does not come with a ny guarantee of a successful outcome as complications and adverse events are always possible. The patient was given a handout in office today discussing the surgical procedure and risks associated with the intervention, both of which were discussed with the patient. These risks include but are not limited to the following: * Experiencing same, different or even worse symptoms in back, neck, arms, or legs compared to before surgery. * Requiring further surgery or other forms of treatment presently or at some time in the future at same or other levels of the intended spine surgery. * On an extreme but fortunately relatively rare basis severe complication such as blindness, stroke, heart attack, temporary and/or permanent nerve injury, paralysis, coma, or may occur, sometimes without known explanation. * Surgical complications may include but are not limited to risk of infection, fluid accumulation in the surgical dissection site, including a seroma or hematoma, that requires additional surgery, wound drainage, bleeding, new numbness or weakness, vision changes/loss, spinal fluid leakage, non-healing and/or infected incision, headaches, difficulty or inability to swallow, hoarseness, hemopneumothorax, pneumothorax, impotence, retrograde ejaculation, vaginal dryness; injury to nerves, spinal cord, blood vessels, lymphatics or other vital organs (i.e., bowel injury, injury to the great vessels); heterotopic bone formation; complications related to the hardware such as screws, rods, cages including misplaced hardware, device failure, instrumentation at the wrong spine level, hardware fracture/breakage, or hardware loosening; vertebral failure of the spinal column above or below the newly placed hardware; retained surgical instrumentations or devices and the need for further surgery. * Medical risks of the planned spine surgery include but are not limited to generalized Infections to the whole body or local areas outside of the surgical site (sepsis), heart attack, bleeding, anaphylaxis, meningitis, seizure, epilepsy, hearing loss, burn lynn, laceration of the head or other areas of the body, bruising, hypersensitivity of the skin, bladder over distension; allergic reaction; shoulder injury related to positioning; fat, blood and air clots to other areas of the body like heart, lungs, brain; failure of internal organs such as lungs, kidneys, liver and excessive bleeding. If blood transfusions are necessary, note that transfusions may cause intolerance reactions such as anaphylaxis or other complex reactions. * Despite best efforts, the results of spine surgery might not heal in terms of bone, soft tissues such as skin, fascia, ligaments, and joints. Additionally, in order to achieve best possible results, spine surgery may be carried out beyond the initially planned levels and involve decompression, fusion including insertion of hardware at levels other than the original intended area of surgical interest change some portions of the procedure in order to ensure the best possible outcomes. * With spine surgery and spinal fusion, there are different off label uses of instrumentation (devices, implants and hardware) as well as biological substances (bone morphogenic proteins, demineralized bone matrix) as well as using extra bone from allograft sources (i.e. cadaver bone) or autograft (iliac crest bone, ribs, or the spine itself). The patient has been given information about these practices and their inherent risks and benefits. The patient has had a chance to review all the listed information, has been given print outs detailing this information, and has had all his/her questions answered to their satisfaction. It was my pleasure to have seen and examined Tamica Ramon. In our visit today we have had a chance to go over my understanding of our patient's current condition, the natural course history without intervention and various interventional options. Questions were invited and answered, and the patient wishes to proceed as outlined above. I have seen and examined the patient for 25 minutes and we have spent more than 50% of the time in repeat and detailed couns eling about the patient's condition, its natural course history with out and as much as can be predicted with surgery and re-review of various surgical treatment options. In conclusion, Tamica Ramon and her mother requested we proceed with the above suggested surgery and are willing to accept risks and limitations of the suggested surgery as nature of the disease process and our best attempts at treatment for the condition. Thank you again for allowing us to be part of your patient's care. Please don't hesitate to contact me if you have any further questions. Signed and authenticated by: Serge Meyer [facility] [address] [place], [place] [address], [address] [address]
[2022-12-03] MEDS: CYCLOBENZAPRINE 10 MG TAB PO SCH ×3 (09:00→21:01)
[2022-12-03] MEDS: SENNOSIDES 8.6 MG TAB PO SCH (09:01)
[2022-12-03] MEDS: PREGABALIN 75 MG CAP PO SCH ×2 (09:01→21:01)
[2022-12-03 10:54] LABS: HCT 42.5 % (34.0-46.0); HGB 13.9 gm/dL (11.4-16.0); MCH 30.6 pg (25.0-35.0); MCHC 32.7 g/dL (31.0-37.0); MCV 93.6 fL (80.0-100.0); Mean Platelet Volume 7.3; Platelet Count 380 k/uL (150-450); RBC 4.54 m/uL (3.80-5.40); RDW 13.1 % (11.5-15.5); WBC 22.2 k/uL (3.8-10.6)
[2022-12-03 11:04] LABS: African American GFR (CKD) >90 (>60 ml/min/1.73 sqM); Anion Gap 9 mmol/L; Blood Urea Nitrogen 11 mg/dL (7-17); Carbon Dioxide 26 mmol/L (22-30); Chloride 102 mmol/L (98-107); Glucose 101 mg/dL (74-99); Non-African American GFR(CKD) >90 (>60 ml/min/1.73 sqM); Potassium 4.4 mmol/L (3.5-5.1); Sodium 137 mmol/L (137-145)
--- NOTE | 2022-12-03 12:14 | P.PN ---
Subjective Progress Note Date: 12/03/22 (Delayed charting patient seen in 08) Patient is a 27-year-old female with pre-existing back pain, asthma, and sinusitis who presented to the hospital for intractable back pain. She had been initially scheduled to have outpatient back surgery. Patient seen and examined at bedside. She is anxious about going on for the procedure today. Her pain has been relatively well controlled overnight. She denies any chest pain, shortness of breath, nausea, vomiting Vital signs reviewed General: nontoxic, no distress, appears at stated age Cardiovascular: S1S2 reg, no murmur, positive posterior tibial pulse bilateral, Lungs: CTA bilateral, no rhonchi, no rales , no accessory muscle use Abdominal: soft, nontender to palpation, no guarding, no appreciable organomegaly Ext: no gross muscle atrophy, no edema, no contractures Neuro: CN II-XI grossly intact, no focal neuro deficits Psych: Alert, oriented, appropriate affect Assessment: Acute on chronic back pain with radiculopathy Leukocytosis, reactive steroid-induced Thrombocytosis, resolved Hyperglycemia, steroid-induced Imaging: None new Data Review: Vitals reviewed from today temperature 98.1, pulse 85, respirations 16, blood pressure 122/79, O2 sat 98% on room air Labs reviewed and remarkable for white blood cell count 22.2 (down from 27.59), glucose 101. Plan: Plan is for L5-S1 microdiscectomy with Dr. Baires sent today. Repeat blood work in a.m. Currently taking Flexeril 10 mg 3 times daily, Valium 10 mg at night, Lyrica 150 mg twice daily Using Dilaudid and Percocet for breakthrough pain. Currently on Decadron 2 mg every 6 hours. Thank you for allowing us to participate in the care of this pleasant patient. Do not hesitate to contact us with questions. Someone can be reached from the [facility] hospitalist group all hours of the day at [phone] or via [employer]. This dictation was prepared using [employer] voice recognition software. Though every attempt is made to correct errors during during dictation some may still exist. Objective - Vital Signs Vital signs: Vital Signs Temp 98.1 F 12/03/22 07:00 Pulse 85 12/03/22 07:00 Resp 16 12/03/22 07:00 BP 122/79 12/03/22 07:00 Pulse Ox 98 12/03/22 07:00 FiO2 Intake & Output 12/02/22 12/03/22 12/03/22 18:59 06:59 18:59 Intake Total 240 Balance 240 Intake: Oral 240 Other: # Voids 3 1 - Labs CBC & Chem 7: 12/03/22 10:34 12/03/22 10:34 Labs: Abnormal Lab Results - Last 24 Hours (Table) 12/03/22 12/03/22 Range/Units 10:34 10:34 WBC 22.2 H (3.8-10.6) k/uL Glucose 101 H (74-99) mg/dL
[2022-12-03] MEDS ORDERED: TRANEXAMIC ACID 1,000 MG in SODIUM CHLORIDE 0.9% 100 ML IVPB PRN ×2 (13:37→13:39)
[2022-12-03] MEDS ORDERED: SCOPOLAMINE 1 MG/72 HR PATCH TRANSDERM ONE (13:40)
[2022-12-03] MEDS ORDERED: ONDANSETRON 4 MG/2 ML VIAL IVP ONE (13:40)
[2022-12-03] MEDS ORDERED: TRANEXAMIC ACID IN NACL,ISO-OS 1,000 MG/100 ML BAG ONE (13:47)
[2022-12-03] MEDS ORDERED: LIDOCAINE 2% INJ 20 MG/ML (2 ML VIAL) ONE (13:47)
[2022-12-03] MEDS ORDERED: KETAMINE 10 MG/ML 20 ML VIAL ONE (13:47)
[2022-12-03] MEDS ORDERED: PROPOFOL 10 MG/ML 20 ML VIAL IV ONE (13:47)
[2022-12-03] MEDS ORDERED: ROCURONIUM 10 MG/ML (5 ML VIAL) IV ONE (13:47)
[2022-12-03] MEDS ORDERED: fentaNYL (PF) 50 MCG/ML 2 ML AMP ONE (13:47)
[2022-12-03] MEDS ORDERED: MIDAZOLAM 2 MG/2 ML VIAL ONE (13:47)
[2022-12-03] MEDS ORDERED: SUCCINYLCHOLINE CHLORIDE 200 MG/10 ML VIAL IV ONE (13:47)
[2022-12-03] MEDS ORDERED: GLYCOPYRROLATE 0.2 MG/ML 2 ML VIAL ONE (13:47)
[2022-12-03] MEDS ORDERED: NEOSTIGMINE 1 MG/ML 10 ML VIAL ONE (13:47)
[2022-12-03] MEDS ORDERED: IV FLUID CONTINUATION 750 ML IV ONE (13:47)
[2022-12-03] MEDS ORDERED: LACTATED RINGERS 1,000 ML IV ONE (13:48)
[2022-12-03] MEDS ORDERED: LIDOCAINE 1%-EPI 1:100,000 20 ML VIAL SQ ONE (14:20)
[2022-12-03] MEDS ORDERED: BUPIVACAINE (PF) 0.25% 30 ML VIAL SQ ONE (14:20)
[2022-12-03] MEDS ORDERED: GELATIN SPONGE,ABSORB (LARGE) 1 EACH SPONGE TOPICAL ONE (14:58)
[2022-12-03] MEDS ORDERED: THROMBIN (BOVINE) 5,000 UNIT VIAL TOPICAL ONE (14:58)
[2022-12-03] MEDS ORDERED: MAGNESIUM HYDROXIDE 2,400 MG/10 ML CUP PO PRN (15:48)
[2022-12-03] MEDS ORDERED: SENNOSIDES-DOCUSATE SODIUM 1 EACH TAB PO PRN (15:48)
[2022-12-03] MEDS ORDERED: HYDROmorphone 0.5 MG/0.5 ML SYRINGE IVP ONE (16:47)
--- NOTE | 2022-12-03 16:48 | XR ---
EXAMINATION TYPE: XR lumbar spine 2 or 3V, FL guidance operating room DATE OF EXAM: 12/03/2022 Comparison: None Clinical History: 27-year-old female REFRACTORY BACK PAIN Findings: Metallic instrument extending to the right posterior elements of the L5 level. FLUOROSCOPY Fluoroscopy time of 10 seconds was used during lumbar pain intervention procedure. 6 image/s documen t/s the procedure. DOSE AREA PRODUCT (DAP) UGY*M,MGY*CM: 2.0058. Impression: Intraoperative fluoroscopy as above.
[2022-12-03] MEDS: LACTATED RINGERS 1,000 ML IV SCH (18:04)
[2022-12-03] MEDS: SODIUM CHLORIDE 0.9% 1,000 ML IV SCH ×2 (18:04→21:02)
[2022-12-03] MEDS: oxyCODONE-APAP 5-325MG 1 EACH TAB PO PRN (18:36)
--- NOTE | 2022-12-03 19:22 | P.OP ---
Date of Procedure: 12/03/22 Preoperative Diagnosis: 1. L5-S1 HNP with stenosis 2. RLE radiculopathy 3. RLE weakness 4. Refractory to conservative measures. Postoperative Diagnosis: 1. L5-S1 HNP with stenosis 2. RLE radiculopathy 3. RLE weakness 4. Refractory to conservative measures. Procedure(s) Performed: 1. L5-S1 right sided hemilaminotomy, partial medial facetectomy and foraminotomy with microdiscectomy (85006) Use of IO microscope Implants: None Anesthesia: KIRKA Surgeon: Serge Johnson Lining Printer #1: Karan Fry (Was present and assisted with the entire case) Estimated Blood Loss (ml): 20 IV fluids (ml): 450 Urine output (ml): 0 Pathology: none sent Condition: stable Disposition: PACU Indications for Procedure: Tamica Ramon is a 27 yo female presenting for evaluation of Low back pain, LE pain, weakness, numbness, and debility due to these. It was my pleasure to have seen and examined Tamica. In our visit today we have had a chance to go over subjective complaints, physical examination findings and treatments including the natural course history without intervention and various interventional options. The patients imaging demonstrates L5-S1 HNP with S1 encroachment. On physical exam, Tamica demonstrates +SLR on the right, +Contralateral SLR, Tensioning signs, Weakness with PF and FHL, radiculopathy in S1 along with severe back pain and pressure. I have explained to the patient that as their condition progresses it will cause further neurological deficits. Based on the patients imaging, physical exam, and the rapid progression and disabling nature of their symptoms, at this time I recommend surgery in the form or a: L5-S1 microdiscectomy. I discussed the risk and benefits of this procedure at length with Tamica. The patient and her mother agreed to considered pursuing the procedure abovementioned. Prior to surgery, she should follow up with her PCP (Cardio, ID, IM etc) for clearance. Questions were invited and answered, and the patient wishes to proceed as outlined below. Currently, I am recommendin. L5-S1 microdiscectomy Description of Procedure: L5-S1 Microdiscectomy The patient was seen and examined in the preoperative area. All preoperative protocols were followed. Informed consent was obtained, risks and benefits of the procedure were discussed at length. Risks including bleeding infection damage to the surrounding tissue and risk of re-operation were discussed with the patient. Risk of anesthesia up to and including was discussed with the patient. These are outlined in the risk review. They were willing to accept these risks and all the risks of surgery. The patient was given a weight-based dose of antibiotics in the form of 2 g Ancef. The patient was seen and evaluated by the anesthesia team who deemed them fit for surgery. The site was marked, the patient was willing to proceed with the procedure. The patient was transferred to the operative suite by the Department of anesthesia. They were then drifted off to sleep by the department anesthesia and GETA was performed. The patient tolerated this well. Chacon catheter was placed by nursing staff, a-traumatically. Once confirmation of lines and ventilation the patient was transferred to a prone Fausto table very carefully. All bony prominences including wrists, elbows, axilla, chest, hips, and thighs, and feet were padded very well. Special attention was paid to the genitalia, and these were padded accordingly. SCDs were placed on bilateral lower extremities and were connected. Arms were well padded and placed on arm boards up and out in the 90/90 position. Once in position, again we confirmed good ventilation capabilities and that lines were running appropriately. The patients Lumbar spine was then exposed. 1010s were placed outlining the incision site. Standard alcohol was used to clean the incision site and allowed to dry. C-arm was used to needle localize the pedicles at L5-S1 and bio-michael the patient and confirm level for incision which was marked with a skin marker. Operative briefing was performed with all teams and everyone in agreement to proceed. The patient was then prepped and draped in a normal sterile fashion. Timeout was then performed, and all parties agreed with the procedure to be performed. Skin incision was made over the previously marked area and dissection taken down to the deep facia which was split just off midline for a midline sparing approach. Subperiosteal dissection was then taken down the lamina over the facet joints and identifying the pars at L5. [place] 4 was placed at the level of the pars of L5 and a lateral image taken to confirm operative level. Retractors were then placed. Microscope was then brought in for visualization. Jose Luis-laminotomy, partial medial facetectomy and foraminotomy were performed at L5-S1 using high speed ottoniel and Kerrison rongure. The ligamentum flavum was removed with Kerrison and curette. Dura and roots protected. The disc space was identified along with the herniation. 11 blade was used to make small annulotomy and micro-pituitary used to remove loose disc fragments. Once fragments were removed, down biting curette was used to push any medial fragments down and towards the annulotomy and decompress centrally. The disc space was irrigated, and any loose fragments removed again. Bipolar was used for hemostasis and scarring of the annulotomy. The area was irrigated, and meticulous hemostasis performed. The bed was inspected, and all roots have ample room and are decompressed along with the dura. There were no injuries. Retractors were then removed. The wound was copiously irrigated with NSS. The deep fascia was closed with 0 PDS. Deep sub-q with 0 Vicryl and superficial with 2-0 Vicryl. Subcuticular was closed with 3-0 stratafix. The wound edges approximated well. The wound was then cleaned, and glue placed on the skin and allowed to dry. It was then Covered with an Opifoam dressing. The patient was then transferred off the table back to their hospital bed a- traumatically. They were extubated by the department of anesthesia. They were then transferred to PACU in stable condition having tolerated the procedure with no complications.
[2022-12-03] MEDS: diazePAM 5 MG TAB PO SCH (21:01)
[2022-12-04] MEDS: oxyCODONE-APAP 5-325MG 1 EACH TAB PO PRN ×2 (00:15→06:56)
[2022-12-04] MEDS: HYDROmorphone 0.5 MG/0.5 ML SYRINGE IVP PRN ×2 (02:35→05:44)
[2022-12-04] MEDS: ONDANSETRON 4 MG/2 ML VIAL IVP PRN (04:19)
[2022-12-04 04:45] LABS: African American GFR (CKD) >90 (>60 ml/min/1.73 sqM); Anion Gap 10 mmol/L; Blood Urea Nitrogen 14 mg/dL (7-17); Calcium 8.5 mg/dL (8.4-10.2); Carbon Dioxide 25 mmol/L (22-30); Chloride 102 mmol/L (98-107); Glucose 144 mg/dL (74-99); Non-African American GFR(CKD) >90 (>60 ml/min/1.73 sqM); Potassium 3.9 mmol/L (3.5-5.1); Sodium 137 mmol/L (137-145)
[2022-12-04 04:54] LABS: HCT 42.5 % (34.0-46.0); HGB 13.8 gm/dL (11.4-16.0); MCH 31.1 pg (25.0-35.0); MCHC 32.4 g/dL (31.0-37.0); MCV 95.9 fL (80.0-100.0); Mean Platelet Volume 7.4; Platelet Count 423 k/uL (150-450); RBC 4.43 m/uL (3.80-5.40); RDW 13.3 % (11.5-15.5); WBC 26.7 k/uL (3.8-10.6)
[2022-12-04] MEDS: DEXAMETHASONE SOD PHOSPHATE 4 MG/ML 1 ML VIAL IVP SCH ×2 (05:44→13:36)
[2022-12-04] MEDS: PREGABALIN 75 MG CAP PO SCH (08:00)
[2022-12-04] MEDS: SENNOSIDES 8.6 MG TAB PO SCH (08:01)
[2022-12-04] MEDS: CYCLOBENZAPRINE 10 MG TAB PO SCH ×2 (08:01→16:42)
--- NOTE | 2022-12-04 08:15 | P.PN ---
Subjective Progress Note Date: 12/04/22 Principal diagnosis: 1. L5-S1 HNP with stenosis 2. RLE radiculopathy 3. RLE weakness Patient seen and examined this morning. Patient was sitting up in bed eating breakfast. Patient does report increase in low back pain, medications have been adjusted. Patient reports that right lower extremity numbness and tingling has resolved since procedure. Patient has been ambulatory to the restroom, tolerating activity well. Surgical dressing to the lumbar region is clean dry and intact. Discussed with patient that I would reassess at lunch time and would like to discharge patient home. Patient verbalizes understanding. Encouraged patient to continue to work with physical therapy. Patient denies any fever/chills, nausea/vomiting, or chest pain. Objective - Vital Signs Vital signs: Vital Signs Temp 98.6 F 12/04/22 02:10 Pulse 86 12/04/22 02:10 Resp 15 12/04/22 02:10 BP 106/61 12/04/22 02:10 Pulse Ox 98 12/04/22 02:10 FiO2 Intake & Output 12/03/22 12/04/22 12/04/22 18:59 06:59 18:59 Intake Total 1050 Output Total 430 Balance 620 Intake: IV 1050 Output: Urine 400 Estimated Blood Loss 30 Other: Voiding Method Toilet # Voids 4 - Exam Physical Examination General: The patient is awake and alert, in no acute distress Skin: Skin is warm and dry with no obvious rashes or lesions. Surgical incision to the right lateral lumbar, dressing is clean dry and intact. Eye: Pupils are equal, round and reactive to light, extra-ocular movements are intact; there is normal conjunctiva bilaterally. Neck: The neck is supple, there is no tenderness and ROM intact. Cardiovascular: There is a regular rate and rhythm. No murmur, rub or gallop is appreciated. Respiratory: Lungs are clear to auscultation, respirations are non-labored, breath sounds are equal. Gastrointestinal: Soft, non-distended, non-tender abdomen. Back: There is no tenderness to palpation in the midline, paralumbar, parathoracic or buttocks region. There is no obvious deformity . Musculoskeletal: ROM limited secondary to pain and stiffness from surgical procedure. Muscle strength in all major muscle groups of bilateral upper extremities 5/5, bilateral lower extremities 4/5. Neurological: CN 2-12 intact. There are no obvious motor or sensory deficits. Movement and coordination equal and intact. Sensory exam to light touch intact C5-T1 and intact from L2-S1. Reflexes 2/4 in bilateral upper and lower extremities. Negative Hoffmans, babinski, and clonus signs. Psychiatric: Cooperative, appropriate mood & affect, normal judgment. - Labs CBC & Chem 7: 12/04/22 04:24 12/04/22 04:24 Labs: Abnormal Lab Results - Last 24 Hours (Table) 12/03/22 12/03/22 12/04/22 Range/Units 10:34 10:34 04:24 WBC 22.2 H 26.7 H (3.8-10.6) k/uL Glucose 101 H (74-99) mg/dL 12/04/22 Range/Units 04:24 WBC (3.8-10.6) k/uL Glucose 144 H (74-99) mg/dL Assessment and Plan Assessment: Postop day 1: L5-S1 right sided hemilaminotomy, partial medial facetectomy and foraminotomy with microdiscectomy 1. L5-S1 HNP with stenosis 2. RLE radiculopathy 3. RLE weakness Plan: -Appreciate internal audit consultant and team management. -Activity: Ambulate QID, OOB all meals, up and about, limit lifting bending twisting to less than 5 lbs. Use walker or cane if needed for stability. -Daily PT/OT, increase ambulation strength and balance. -Pain control: Adequate at this time -Meds: reviewed -GI ppx: senna, Miralax -DVT PPX: OK to restart Heparin tonight -Hygiene: Shower today. Maintain dressing clean and dry. Meticulous cleaning after BMs away from the incision site -Encourage IS 10x/hr -Dispo: Anticipate discharge home this afternoon 12/04/22 *I reviewed and discussed this case with my attending Dr. Johnson, whom has reviewed this chart and films and is in agreement with assessment and plan of care as outlined above. I have personally seen and examined the patient, performed the documentation and the assessment and plan as written. Number of minutes spent on the visit: 15m.
[2022-12-04] MEDS: oxyCODONE-APAP 5-325MG 1 EACH TAB PO SCH ×2 (10:53→15:04)
--- NOTE | 2022-12-04 12:57 | P.DS ---
Providers Date of admission: 11/30/22 15:00 Expected date of discharge: 12/04/22 Attending physician: Serge Johnson DO Consults: 11/29/22 11:54 Consult Physician Routine Consulting Provider: Tasha Nunes Consult Reason/Comments: Medical Management Do you want consulting provider notified?: Yes Primary care physician: [facility] Course: Hospital Course: The patient was evaluated preoperatively and found to have the diagnosis of L5- S1 stenosis, right lower extremity radiculopathy and weakness. They underwent appropriate preoperative care and were willing to undergo the intended procedure. They underwent a successful L5-S1 right hemilaminectomy with microdiscectomy, were recovered appropriately and sent to the floor. While on the floor they worked with physical therapy, occupational therapy and nursing to enhance their recovery experience. Their pain was well controlled through their stay and they were started on appropriate medications, DVT ppx modalities, activity and dietary needs. Daily labs were monitored closely, and transfusions were only used when necessary. Medicine as well as other consulting services have made their input and have helped with our team approach and multidisciplinary care. PT milestones have been met and passed and they have made the recommendation of home with home care for this patient and treating providers agree with this care path. The patient will be discharged home with appropriate medications, instructions and follow-up information and in stable condition. Patient Condition at Discharge: Good Plan - Discharge Summary New Discharge Prescriptions: New cefaDROXiL [Duricef] 500 mg PO Q12HR 5 Days #10 cap methylPREDNISolone Dose Pack [Medrol Dose Pack] 4 mg PO DIRECTED #21 tab No Action Acetaminophen Tab [Tylenol Tab] 500 - 1,000 mg PO Q6H PRN PRN Reason: Pain predniSONE 12.5 mg PO DAILY diazePAM [Valium] 10 mg PO HS Pregabalin [Lyrica] 150 mg PO BID oxyCODONE-APAP 5-325MG [Percocet 5-325 mg] 1 tab PO Q6H PRN PRN Reason: Pain Cyclobenzaprine [Flexeril] 10 mg PO TID Discharge Medication List Acetaminophen Tab [Tylenol Tab] 500 - 1,000 mg PO Q6H PRN 11/29/22 [History] Cyclobenzaprine [Flexeril] 10 mg PO TID 11/29/22 [History] Pregabalin [Lyrica] 150 mg PO BID 11/29/22 [History] diazePAM [Valium] 10 mg PO HS 11/29/22 [History] oxyCODONE-APAP 5-325MG [Percocet 5-325 mg] 1 tab PO Q6H PRN 11/29/22 [History] predniSONE 12.5 mg PO DAILY 11/29/22 [History] cefaDROXiL [Duricef] 500 mg PO Q12HR 5 Days #10 cap 12/04/22 [Rx] methylPREDNISolone Dose Pack [Medrol Dose Pack] 4 mg PO DIRECTED #21 tab [Rx] Follow up Appointment(s)/Referral(s): Serge Johnson DO [Doctor of Osteopathic Medicine] - 12/21/22 11:20 am Jose Angel Rice DO [Primary Care Provider] - 1 Week Patient Instructions/Handouts: *Surgery [facility] - Scopalamine Patch Instructions Activity/Diet/Wound Care/Special Instructions: Spine Discharge and Recovery Instructions Date of Surgery: 12/03/2022 Diagnosis: Refractory back pain Procedure: L5-S1 right hemilaminectomy with microdiscectomy Medications: See medication list All medication refills should be obtained through your primary care doctor or your clinic spine surgeon. Please discuss prescription refills at your follow up appointment. Do not call the hospital for medication refills. Dressing: Leave your dressing in place for a total of 5 days post operatively. Then you may remove your dressing and leave open to air. Keep the area clean and if not able to keep area clean, then cover with sterile gauze and tape. Showering: You may shower 3 days after your procedure allowing soap and water to run over incision. Do not scrub. Do not soak. Blot dry. Follow up: Please confirm a follow up appointment with your surgeon 3 weeks post operatively. Please make an appointment to follow up with your PCP in 1-2 weeks after surgery for evaluation 3 phase, 3-week plan POST OP WEEKS 1-3 1. Lifting/carrying/pushing/pulling limited to less than 5 pounds. 2. Do not sit for longer than 15 minutes at one time. Get up and walk around. Prolonged sitting is NOT advised. If you lay down, see if you can tolerate laying down on you front (belly side) 3. Walk for periods of 15 minutes = 1 mile but no longer; do it multiple times times each day. 4. Ice your low back after activity. POST OP WEEKS 3-6 1. Lifting limited to less than 20 pounds. 2. Do not sit for longer than 30 minutes at a time. Frequently change positions. Use a sit-to stand workstation or take frequent breaks from sitting if you have returned to work. 3. Walk for 30 minutes each day. If possible, do these three or more times a day POST OP WEEKS 6+ At your 6-week appointment we will give you a physical therapy referral to focus on a core stabilization and strengthening program. You should also work on leg & buttock strengthening, hamstring & quadriceps stretching, and continue a low impact aerobic activity program such as swimming, walking, or riding a stationary bicycle. During the initial 6 weeks after your surgery, you are at the highest risk of re-injuring your spine. You should generally avoid BLTs (bending, lifting and twisting combination motions) and follow the above guidelines to reduce the chance of reinjury. You can anticipate post op appointments in our office at approximately 3 weeks and 6 weeks after your surgery. INCISION CARE: If your incision is not draining you do NOT need to cover it with a dressing. Keep your incision clean, dry and intact. In most cases, we apply skin glue, nelly or sutures to the incision at the time of surgery. This will be like a crust or have the appearance of a scab and will fall off in time on its own. The stitches or nelly need to be removed at 3 weeks post op appointment. You may begin to shower 3 days after surgery (this allows the glue to tai well). However, please avoid scrubbing the incision site or peeling off any of the skin glue. This will ensure optimal healing of your incision. Also, during this time avoid soaking the incision area in water - this includes swimming pools, hot tubs or baths. No ointments, lotions or oils on the incision until your surgeon allows. Leave nelly, sutures or glue in place. Neurological dysfunction that comes on suddenly can also be a sign of a stroke. Below some common symptoms of a stroke are listed: B - balance difficulty such as sudden onset walking or leaning to one side - NEW E - eye problem such as sudden double vision or trouble seeing on one side - NEW F - Facial weakness or numbness on one side - NEW A - Arm or leg weakness or numbness on one side - NEW S - Slurred speech or difficulty with word finding - NEW T - Time is BRAIN! Call 911 as soon as you recognize these symptoms Diet: Consume a regular diet rich in vegetables and lean protein such as chicken or fish. You should consume in a ratio of approximately 20% fats|40% carbohydrates|40%protein. Vegetables, sweet potatoes, brown rice or quinoa are examples of good carbohydrates. Chips, white bread, cookies and sweets/sugar are examples of bad carbohydrates. Limit your bad carbs, go wild with good carbs. "Life's Simple 7" Guidelines as per [place] [employer] These will help you reclaim your life after surgery and edger machine helper in your recovery, keeping in mind your restrictions. (1) Get Active. Physical activity can help people lose weight, control high blood pressure and cholesterol, feel emotionally better, and sleep better. (2) Control Cholesterol. Avoid a diet high in saturated fat, trans fat, & cholesterol. Limit whole milk & cream, ice cream, butter, egg yolks, processed meats (like sausage and hot dogs), and fatty meats. Choose healthy foods that are low in saturated fat, trans fat and cholesterol which include: Fruits and vegetables, fiber rich grain products (like whole grain pasta and brown rice), lean meat such as chicken, fish, nuts, seeds, and legumes. (3) Eat Better. Eat small portions. Shop at the grocery with a list and do not stray from it. Tips for a healthy diet include: Limit sodium intake to less than 1500mg daily, avoid prepackaged, processed, and fast foods, choose a diet rich in fruits, vegetables, and whole grain, high fiber foods, and limit saturated & cholesterol in your diet. (4) Manage Blood Pressure. If you have high blood pressure, you should have a cuff at home so that you can check your blood pressure regularly. Be sure you have a good cuff. An arm one is generally better than a wrist one. Bring the cuff to a doctor's appointment to validate that the measurements that your cuff are taking are accurate. Take your blood pressure twice daily when you are sitting down and relaxing. Record the numbers in a log and bring this log with you to your doctors' appointments. (5) Lose Weight if your BMI is above 25. A healthy BMI is between 19-25. To calculate Your BMI, you may use a Standard BMI Calculator on the NIH BMI website: <www.nhlbi.nih.gov/guidelines/obesity/BMI/bmicalc.htm>. Weigh oneself daily. If you are overweight, set a goal to lose weight. A pound a week loss if needed is a good target. (6) Reduce Blood Sugar. Limit foods and liquids with "added sugars." (Added sugars include sucrose, fructose, glucose, maltose, dextrose, high fructose corn syrup, corn syrup, concentrated fruit juice and honey). (7) Stop Smoking. If you smoke, quitting smoking is one of the best things that you can do for your health. Smoking increases your risk of heart attack, stroke, and peripheral vascular disease, which is a build-up of plaque in your arteries. Please discard all the cigarettes and lighters in your house. Have a plan for what you will do when you have the urge to smoke. Direct and second- hand smoke shortens your life as well as the lives of your family, friends and others around you. For your health and the health of those around you, please consider quitting! Proper Bending Body Mechanics: Maintain a wide stance with one foot slightly in front of the other. Keep your back straight. Bend utilizing the strength in your hips and knees. Do not bend at the waist. Maintain the lifted object at your waist-level close to your body. Avoid lifting weight that causes immediately pain or pain anywhere in the body afterwards. Smoking/Nicotine If there was ever one thing that you could do to increase your overall health, decrease your risk of cardiovascular problems by about 39% the second you make the choice, it is to STOP SMOKING. Your body's most instant gratification is the second you stop smoking. We have all heard the studies, read the articles but it is true, smoking is extremely bad for your overall health, and moreover it is detrimental to your bone health. Nicotine, IN ANY FORM, kills bone cells, prevents your body from healing fractur es, and significantly prolongs healing after surgery. In spine surgery specifically, it increases your risk of not healing your bones to create a fusion and increases your risk of having a revision surgery due to this up to 60%. I know it is hard. I know it feels impossible. But there are ways. Take control of your life. We are here to help you through it. And when you are ready, ask us and we can direct you to help if you desire. Use the START Plan to Quit Smoking (please visit the Helpguide.org website listed below for more information): S = Set a quit date. Choose a date within the next 2 weeks, so you have enough time to prepare without losing your motivation to quit. If you mainly smoke at work, quit on the weekend, so you have a few days to adjust to the change. T = Tell family, friends, and co-workers that you plan to quit. Let your friends and family in on your plan to quit smoking and tell them you need their support and encouragement to stop. Look for a quit dawn who wants to stop smoking as well. You can help each other get through the rough times. A = Anticipate and plan for the challenges you'll face while quitting. Most people who begin smoking again do so within the first 3 months. You can help yourself make it through by preparing ahead for common challenges, such as nicotine withdrawal and cigarette cravings. R = Remove cigarettes and other tobacco products from your home, car, and work. Throw away all your cigarettes (no emergency pack!), lighters, ashtrays, and matches. Wash your clothes and freshen up anything that smells like smoke. Shampoo your car, clean your drapes and carpet, and steam your furniture. T = Talk to your doctor about getting help to quit. Your doctor can prescribe medication to help with withdrawal and suggest other alternatives. If you can't see a doctor, you can get many products over the counter at your local pharmacy or grocery store, including the nicotine patch, nicotine lozenges, and nicotine gum. Resources for Quitting Smoking: <https://www.[place].gov/documents/[facility]/Quit_Tobacco_Resources_for_patients_313 480_7.pdf> Supplementation: Take recommended dosages of Vitamin D and Calcium to help fortify your bones and help them to heal. See your health maintenance packet for dosages and recommended levels. DVT/VTE prophylaxis: You will be given compression stockings from the hospital. Wear these daily for the first two weeks after surgery. You may take them off at night. You may be prescribed a medication to help thin your blood. Take this as directed. If you are not prescribed this medication, early and frequent ambulation has been shown to be the best prophylaxis to deep vein thrombosis and sequelae related to this event. Discharge Disposition: HOME WITH HOME HEALTH SERVICES
--- NOTE | 2022-12-04 13:07 | P.PN ---
Subjective Progress Note Date: 12/04/22 Subjective: Patient seen and examined at bedside. No acute events overnight. Back pain has improved. Denies any other complaints. Pertinent positives and negatives as discussed above, a complete review of systems was performed and all other systems are negative. Vitals Signs Reviewed. General: nontoxic, no distress, appears at stated age Derm: warm, dry, dressing clean, dry, intact Head: atraumatic, normocephalic, symmetric Eyes: EOMI, no lid lag, anicteric sclera Mouth: no lip lesion, mucus membranes moist Cardiovascular: S1S2 reg, no murmur Lungs: CTA bilateral, no rhonchi, no rales , no accessory muscle use Abdominal: soft, nontender to palpation, no guarding, no appreciable organomegaly Ext: no gross muscle atrophy, no edema, no contractures Neuro: CN II-XI grossly intact, no focal neuro deficits Psych: Alert, oriented, appropriate affect Data Reviewed Today: Pertinent Labs: WBC 26.7, creatinine 0.79, glucose 144 Assessment and Plan: Acute on chronic back pain with radiculopathy, status post surgery Leukocytosis, reactive steroid-induced Thrombocytosis, reactive, resolved Hyperglycemia, steroid-induced -On dexamethasone 1 mg IV every 6 hours, cyclobenzaprine, diazepam, oral Tylenol, IV Dilaudid, oral Percocet, Lyrica -Senna daily -No other medical problems -Patient is medically optimized for discharge home Thank you for allowing us to participate in the care of this pleasant patient. Do not hesitate to contact us with questions. Someone can be reached from the [facility] hospitalist group all hours of the day at [phone] or via perfect serve. Objective - Vital Signs Vital signs: Vital Signs Temp 98.3 F 12/04/22 07:21 Pulse 83 12/04/22 11:12 Resp 16 12/04/22 11:12 BP 145/81 12/04/22 07:21 Pulse Ox 100 12/04/22 07:21 FiO2 Intake & Output 12/03/22 12/04/22 12/04/22 18:59 06:59 18:59 Intake Total 1050 Output Total 430 Balance 620 Intake: IV 1050 Output: Urine 400 Estimated Blood Loss 30 Other: Voiding Method Toilet Toilet # Voids 4 - Labs CBC & Chem 7: 12/04/22 04:24 12/04/22 04:24 Labs: Abnormal Lab Results - Last 24 Hours (Table) 12/04/22 12/04/22 Range/Units 04:24 04:24 WBC 26.7 H (3.8-10.6) k/uL Glucose 144 H (74-99) mg/dL
[2022-12-04] MEDS: SODIUM CHLORIDE 0.9% 1,000 ML IV SCH (15:30)
[2022-12-04 15:31] VITALS: BP 99/59; PULSE 91; RESP 18; TEMP 98.8
[2022-12-04] MEDS: LACTATED RINGERS 1,000 ML IV SCH (16:17)
== END 2022-12-04 17:52 | disposition home health service (06) | DRG 520 ==
LOC: EC 23:28 → 6NMEDSUR 11-29 01:41 → OBSVTOIN 11-30 15:00 → 4SSUR 12-03 13:15
PROVIDERS: ADMIT Orthopaedic Surgery; ATTEND Orthopaedic Surgery
PROC: 01NB0ZZ Release Lumbar Nerve, Open Approach (ICD-10-PCS; 2022-12-03)
PROC: 01NR0ZZ Release Sacral Nerve, Open Approach (ICD-10-PCS; 2022-12-03)
PROC: 8E0WXBF Computer Assisted Procedure of Trunk Region, With Fluoroscopy (ICD-10-PCS; 2022-12-03)
PROC: 0SB40ZZ Excision of Lumbosacral Disc, Open Approach (ICD-10-PCS; principal; 2022-12-03 09:45)
DX: M51.17 Intervertebral disc disorders with radiculopathy, lumbosacral region (principal); M48.07 Spinal stenosis, lumbosacral region; G89.29 Other chronic pain; R73.9 Hyperglycemia, unspecified; J45.909 Unspecified asthma, uncomplicated; D72.829 Elevated white blood cell count, unspecified; J32.9 Chronic sinusitis, unspecified; T38.0X5A Adverse effect of glucocorticoids and synthetic analogues, initial encounter; D75.838 Other thrombocytosis; F17.290 Nicotine dependence, other tobacco product, uncomplicated; F32.A Depression, unspecified; F41.9 Anxiety disorder, unspecified; Z79.899 Other long term (current) drug therapy; Z87.442 Personal history of urinary calculi; X58.XXXA Exposure to other specified factors, initial encounter
CPT/HCPCS: 72100; 80048; 80053; 81025; 85025; 85027

== ENCOUNTER → 2022-11-28 | Outpatient (CLI) | payer BC ==
--- NOTE | 2022-11-28 20:13 | MR ---
EXAMINATION TYPE: MR lumbar spine wo con DATE OF EXAM: 11/28/2022 COMPARISON: Outside MRI lumbar spine July 18, 2022 images, prior report not available HISTORY: Low back pain that radiates down right leg, unable to lay flat. History of surgery June 2023 with HNP and right-sided radiculopathy per order TECHNIQUE: Multiplanar, multisequence imaging of the lumbar spine is performed without IV contrast. FINDINGS: Sagittal images of the lumbar spine show vertebral body heights and alignment to appear sat isfactory. There is disc desiccation L3-L4 through the L5-S1 levels redemonstrated. Mild disc space n arrowing L3-L4 and L5-S1 levels is redemonstrated The conus medullaris and remains normal in position and signal ending inferior L1 level. The bone marrow signal intensity is within normal limits. Axial images show T12-L1 through the L2-L3 levels to appear within normal limits. Axial images at L3-L4 level shows mild to moderate broad disc bulge mildly effacing anterior thecal s ac. Patent bilateral neural foramina. Axial images at L4-L5 level show tiny central disc protrusion or spinal canal minimally effaced. Bila teral neural foramina are patent. No significant change from prior. Axial images at L5-S1 level redemonstrates broad-based right paracentral disc protrusion minimally ef facing anterior thecal sac. There is mild left-sided anterior inferior neural foraminal narrowing. Ri ght-sided neural foramina remains patent. Disc hernia however likely effaces the central right S1 ner ve axial image 2. Paraspinal muscle bulk is preserved. IMPRESSION: Multilevel degenerative change in the lumbar spine as detailed above. Disc herniation L5- S1 level appears slightly more prominent and suspected effacing central right S1 nerve.
== END | disposition home or self-care (01) ==
LOC: RADMRIMAIN 19:13
PROVIDERS: ATTEND Orthopaedic Surgery
DX: M51.16 Intervertebral disc disorders with radiculopathy, lumbar region (principal); M47.26 Other spondylosis with radiculopathy, lumbar region; M51.17 Intervertebral disc disorders with radiculopathy, lumbosacral region
CPT/HCPCS: 72148